=== PATIENT | female | born 1960 | race Caucasian/White ===

== ENCOUNTER 2017-02-17 14:08 | Emergency (ER) | payer BC, MEDICARE ==
[~2017-02-17] VITALS: Ht 165.1 cm; Wt 68.5 kg
[~2017-02-17 14:08] MED LIST: ALEN70TA3 PO; ALPR1TAB2 PO; ATOR40TA59 PO; BETA15CR5 TP; CARI350T PO; DULO60CA6 PO; HYDR-2679 PO; LEVO112T2 PO; LOSA50TA2 PO; MILN50TA PO; NYST15CR TP; PREG100C PO; SOLI10TA2 PO
[2017-02-17 15:43] LABS: BASO # 0.1 x10^3/uL (0.0-0.2); BASO % 1 % (0-3); EOS % 1 % (0-3); LYMPH # 4.1 x10^3/uL (1.0-4.8); LYMPH % 41 % (24-48); MEAN CORPUSCULAR HEMOGLOBIN 31 pg (25-35); MEAN CORPUSCULAR HGB CONC 34 g/dL (31-37); MEAN CORPUSCULAR VOLUME 92 fL (79-100); MONO % 9 % (0-9); NEUT % 48 % (31-73); PLATELET COUNT 419 x10^3/uL (140-400); RED CELL DISTRIBUTION WIDTH 13.4 % (11.5-14.5); WHITE BLOOD COUNT 9.9 x10^3/uL (4.0-11.0)
[2017-02-17] MEDS ORDERED: IV NORMAL SALINE 1000ML BAG 1,000 ML IV ONE (15:45)
[2017-02-17 15:57] LABS: CALCIUM 9.8 mg/dL (8.5-10.1); CREATININE 0.8 mg/dL (0.6-1.0); GFR 74.2
--- NOTE | 2017-02-17 15:57 | RAD ---
Portable chest, 02/17/2017: History: Chest pain Comparison is made to a study from 01/18/2008. The heart size and pulmonary vascularity are normal. No pulmonary infiltrates are seen. There is no evidence of pleural fluid. IMPRESSION: No acute cardiopulmonary abnormality is detected.
--- NOTE | 2017-02-17 16:02 | EKG ---
[facility] [address] [place] [address] Test Date: 2017-02-17 Test Time: 15:09:14 Pat Name: AIME SANCHEZ Department: Room: Gender: F Property Field Inspector: : [id number] Requested By: PJ HERNANDEZ Order Number: [id number] Reading MD: Mratin Barrios MD Measurements Intervals [place]ichael Rate: 98 P: 54 ND: 126 QRS: 45 QRSD: 88 T: -8 QT: 376 QTc: 482 Interpretive Statements SINUS RHYTHM NON-SPECIFIC ST/T CHANGES PROLONGED QT Electronically Signed On 02-17-2017 16:30:05 TRANSPORTATION MAINTENANCE SPECIALIST by Martin Barrios MD
[2017-02-17 16:07] LABS: ALBUMIN 3.9 g/dL (3.4-5.0); ALBUMIN/GLOBULIN RATIO 1.1 (1.0-1.7); TOTAL BILIRUBIN 0.4 mg/dL (0.2-1.0); TOTAL PROTEIN 7.6 g/dL (6.4-8.2)
[2017-02-17 16:11] LABS: BILIRUBIN,URINE MODERATE (NEG); GLUCOSE,URINE NEGATIVE (NEG); NITRITE,URINE NEGATIVE (NEG); PH,URINE 6.5; PROTEIN,URINE 30 mg/dL (NEG-TRACE)
[2017-02-17 16:21] LABS: BACTERIA,URINE MOD /HPF (0-FEW); RBC,URINE 0 /HPF (0-2); SQUAMOUS EPITHELIAL CELL,UR MOD /LPF
[2017-02-17] MEDS ORDERED: IOHEXOL 300 MG/ML 100ML VIAL. IV ONE (18:00)
[2017-02-17] MEDS ORDERED: CONTRAST GIVEN MC PRN (18:15)
--- NOTE | 2017-02-17 19:27 | RAD ---
Indication: Abdominal pain. History of pancreatitis TECHNIQUE: CT abdomen and pelvis with 75 mL of Omnipaque 300 with multiplanar reformats. COMPARISON: None FINDINGS: Heart is normal in size. No pericardial or pleural effusion. Clear lung bases. Liver is normal in morphology. There is a 8mm low attenuating lesion in the subcapsular segment 8 of the liver. Another 6 cm low attenuating lesion is seen in the dome of the right hepatic lobe (series 2 image 10) Spleen within normal limits. Status post cholecystectomy. No peripancreatic inflammatory changes. No focal pancreatic lesion. No peripancreatic fluid collections. There is dilation of the common bile duct with smooth distal tapering without evidence of radiopaque stone. Kidneys are within normal limits. Too small to characterize low attenuating lesion in the left kidney, statistically simple cyst. Adrenal glands are within normal limits. No hydronephrosis. No retroperitoneal or pelvic adenopathy. No bowel obstruction. Scattered sigmoid diverticuli. Likely appendectomy. Uterus is not visualized likely surgically absent. No solid adnexal lesions. No free pelvic fluid. No suspicious bony lesion. IMPRESSION: 1. No imaging evidence of acute or chronic pancreatitis. 2. Small liver lesions, the appearance is not typical of simple hepatic cyst. Findings may represent atypical hemangioma, hepatic adenoma, hamartomas or metastasis. Nonemergent MRI abdomen recommended. Electronically signed by: Darrian White DO (02/17/2017 7:24 PM) [facility]
[2017-02-17] MEDS ORDERED: POTA20TA4 PO (20:16)
--- NOTE | 2017-02-17 20:16 | PHYS DOC ---
Past Medical History Past Medical History: Anxiety, Arthritis, Depression, Fibromyalgia, High Cholesterol, Hypertension Additional Past Medical Histor: OSTEOPORESIS, CHRONIC BACK PAIN Past Surgical History: Appendectomy, Cholecystectomy, Hysterectomy, Other Additional Past Surgical Histo: RIGHT EYE,KNEE,NECK, TAILBONE SURGERY, BILAT EAR SURGERY Additional Information: quit smoking 29 years ago Alcohol Use: None Drug Use: None Adult General Chief Complaint Chief Complaint: NAUSEA/VOMITING/DIARRHA HPI HPI 57-year-old female with a history of anxiety and depression as well as sciatica now presents to the emergency department complaining of left upper quadrant abdominal pain. She states she's previously had pancreatitis and she scheduled some mild left upper quadrant abdominal pain over the last 2 days. She has no chest pain or shortness of breath. She does have some nausea no vomiting or baseline loose stool per patient. He is not worse with movement. It is clearly not exertional pain she has no diaphoresis or shortness of breath. Patient think she having another episode of pancreatitis. She denies having been a heavy drinker and is not clear why she has had pancreatitis multiple times in the past. Review of Systems Review of Systems Constitutional: Denies fever or chills [] Eyes: Denies change in visual acuity, redness, or eye pain [] HENT: Denies nasal congestion or sore throat [] Respiratory: Denies cough or shortness of breath [] Cardiovascular: No additional information not addressed in HPI [] GI: Denies abdominal pain, nausea, vomiting, bloody stools or diarrhea [] : Denies dysuria or hematuria [] Musculoskeletal: Denies back pain or joint pain [] Integument: Denies rash or skin lesions [] Neurologic: Denies headache, focal weakness or sensory changes [] Endocrine: Denies polyuria or polydipsia [] All other systems were reviewed and found to be within normal limits, except as documented in this note. Current Medications Current Medications Current Medications Medications (Trade) Dose Ordered Sig/Joni Start Time Stop Time Status Last Admin Dose Admin Info (Do NOT chart on this entry -- for MONITORING) 1 each PRN DAILY PRN 02/17/17 18:15 02/19/17 18:14 Iohexol (Omnipaque 300 Mg/ml) 75 ml 1X ONCE 02/17/17 18:00 02/17/17 18:03 DC 11/13/17 18:11 75 ML Lorazepam (Ativan) 1 mg 1X ONCE 02/17/17 16:00 02/17/17 16:01 DC 02/17/17 16:06 1 MG Sodium Chloride 1,000 ml @ 125 mls/hr 1X ONCE 02/17/17 15:45 02/17/17 23:44 02/17/17 15:59 125 MLS/HR Allergies Allergies Allergies Coded Allergies Type Severity Reaction Last Updated Verified aspirin Allergy Intermediate 02/06/16 No codeine Allergy Intermediate VOMITING 04/19/14 Yes sulfamethoxazole Allergy Intermediate VOMITING 04/19/14 Yes trimethoprim Allergy Intermediate VOMITING 04/19/14 Yes Physical Exam Physical Exam Well-appearing 57 female no acute distress alert and communicative. Patient has a clearly contributory anxiety component. Trace left upper quadrant tenderness reproducible with palpation with no guarding or rebound no mass or megaly nondistended abdomen with no skin changes. Constitutional: Well developed, well nourished, no acute distress, non-toxic appearance. [] HENT: Normocephalic, atraumatic, bilateral external ears normal, oropharynx moist, no oral exudates, nose normal. [] Eyes: PERRLA, EOMI, conjunctiva normal, no discharge. [] Neck: Normal range of motion, no tenderness, supple, no stridor. [] Cardiovascular:Heart rate regular rhythm, no murmur [] Lungs & Thorax: Bilateral breath sounds clear to auscultation [] Abdomen: Bowel sounds normal, soft, as above. No masses, no pulsatile masses. [ ] Skin: Warm, dry, no erythema, no rash. [] Back: No tenderness, no CVA tenderness. [] Extremities: No tenderness, no cyanosis, no clubbing, ROM intact, no edema. [] Neurologic: Alert and oriented X 3, normal motor function, normal sensory function, no focal deficits noted. [] Psychologic: Affect normal, judgement normal, mood normal. [] Current Patient Data Vital Signs Vital Signs Date Time Temp Pulse Resp B/P (MAP) Pulse Ox O2 Delivery O2 Flow Rate FiO2 02/17/17 19:14 104 18 104/72 (83) 95 Room Air 02/17/17 14:17 98.6 98.6 Lab Values Laboratory Tests Test 02/17/17 14:28 02/17/17 15:45 White Blood Count 9.9 x10^3/uL (4.0-11.0) Red Blood Count 4.80 x10^6/uL (3.50-5.40) Hemoglobin 15.0 g/dL (12.0-15.5) Hematocrit 44.0 % (36.0-47.0) Mean Corpuscular Volume 92 fL (79-100) Mean Corpuscular Hemoglobin 31 pg (25-35) Mean Corpuscular Hemoglobin Concent 34 g/dL (31-37) Red Cell Distribution Width 13.4 % (11.5-14.5) Platelet Count 419 x10^3/uL (140-400) H Neutrophils (%) (Auto) 48 % (31-73) Lymphocytes (%) (Auto) 41 % (24-48) Monocytes (%) (Auto) 9 % (0-9) Eosinophils (%) (Auto) 1 % (0-3) Basophils (%) (Auto) 1 % (0-3) Neutrophils # (Auto) 4.8 x10^3uL (1.8-7.7) Lymphocytes # (Auto) 4.1 x10^3/uL (1.0-4.8) Monocytes # (Auto) 0.9 x10^3/uL (0.0-1.1) Eosinophils # (Auto) 0.1 x10^3/uL (0.0-0.7) Basophils # (Auto) 0.1 x10^3/uL (0.0-0.2) Sodium Level 136 mmol/L (136-145) Potassium Level 3.0 mmol/L (3.5-5.1) L Chloride Level 101 mmol/L (98-107) Carbon Dioxide Level 22 mmol/L (21-32) Anion Gap 13 (6-14) Blood Urea Nitrogen 13 mg/dL (7-20) Creatinine 0.8 mg/dL (0.6-1.0) Estimated GFR (Cockcroft-Gault) 74.2 BUN/Creatinine Ratio 16 (6-20) Glucose Level 89 mg/dL (70-99) Calcium Level 9.8 mg/dL (8.5-10.1) Total Bilirubin 0.4 mg/dL (0.2-1.0) Aspartate Amino Transferase (AST) 18 U/L (15-37) Alanine Aminotransferase (ALT) 18 U/L (14-59) Alkaline Phosphatase 87 U/L (46-116) Troponin I Quantitative < 0.017 ng/mL (0.000-0.055) Total Protein 7.6 g/dL (6.4-8.2) Albumin 3.9 g/dL (3.4-5.0) Albumin/Globulin Ratio 1.1 (1.0-1.7) Lipase 71 U/L (73-393) L Thyroid Stimulating Hormone (TSH) 0.108 uIU/mL (0.358-3.74) L Urine Collection Type Unknown Urine Color Yamileth Urine Clarity Clear Urine pH 6.5 Urine Specific Lincoln >=1.030 Urine Protein 30 mg/dL (NEG-TRACE) Urine Glucose (UA) Negative mg/dL (NEG) Urine Ketones (Stick) 40 mg/dL (NEG) Urine Blood Negative (NEG) Urine Nitrite Negative (NEG) Urine Bilirubin Moderate (NEG) Urine Urobilinogen Dipstick 1.0 mg/dL (0.2 mg/dL) Urine Leukocyte Esterase Small (NEG) Urine RBC 0 /HPF (0-2) Urine WBC 1-4 /HPF (0-4) Urine Squamous Epithelial Cells Mod /LPF Urine Bacteria Mod /HPF (0-FEW) Urine Mucus Mod /LPF Laboratory Tests 02/17/17 14:28 Laboratory Tests 02/17/17 14:28 EKG EKG EKG with normal sinus rhythm at 98 normal axis no STEMI nonspecific ST and T- wave findings interpreted by me.[] Radiology/Procedures Radiology/Procedures Chest x-ray unremarkable interpreted by me report reviewed.[] Course & Med Decision Making Course & Med Decision Making Pertinent Labs and Imaging studies reviewed. (See chart for details) Patient with nonspecific 3 mild left upper quadrant abdominal pain which is easily reproducible however a benign exam. Normal bowel sounds no CVA tenderness. Urinalysis consistent with contamination. She does not have clinical signs and symptoms to suggest UTI so straight catheter repeat UA not clinically indicated. Labs benign except's potassium mildly low at 3.0. This will be supplemented by mouth. CT with some liver lesions of unclear etiology nonemergent MRI recommended by radiology. Patient given copy of CT report is aware critical importance of close follow-up with her primary care doctor to arrange this MRI of the abdomen for definitive diagnosis and specifically to rule out the possibility of liver cancer. Patient with a clearly contributory anxiety component improved after Ativan treatment. Stable with unremarkable exam on reevaluation prior to discharge. No further workup or treatment indicated. Patient agrees that outpatient follow-up and strict return precautions given [] Dragon Disclaimer Dragon Disclaimer This electronic medical record was generated, in whole or in part, using a voice recognition dictation system. Departure Departure Impression: Primary Impression: Abdominal pain Additional Impressions: Anxiety Hypokalemia Liver mass Disposition: HOME, SELF-CARE Condition: GOOD Referrals: RODNEY ZALDIVAR MD (PCP) Patient Instructions: Abdominal Pain (Nonspecific), Anxiety and Panic Attacks, [id number], Hypokalemia-Brief Additional Instructions: It is not clear what has been causing her abdominal pain today but you have no signs of an abdominal emergency. Your lab tests were unremarkable except her potassium was mildly low at 3.0. Take supplemental potassium as prescribed and follow-up with your doctor for recheck of this value. Your anxiety appears to be contributing to see her symptoms today. Take your medications as previously prescribed as needed for this condition. Your CAT scan of the abdomen showed no emergency, however there was an incidental finding of liver mass today. Often liver masses are benign however in this situation radiology has recommended that he follow-up with your doctor to arrange an outpatient MRI of your abdomen specifically to rule out the possibility of liver cancer. You've been given a copy of the CT report to discuss with your doctor and make these arrangements. Follow-up your doctor tomorrow and return immediately for new severe worsening symptoms Scripts Potassium Chloride (KLOR-CON M20) 20 Meq Tab.er.prt 40 MEQ PO DAILY, #10 TAB.SR Prov: PJ HERNANDEZ MD 02/17/17 Problem Qualifiers PJ HERNANDEZ MD Feb 17, 2017 20:16
[2017-02-17 20:21] VITALS: BP 96/67
[2017-02-17] MEDS ORDERED: POTASSIUM CHLORIDE 20 MEQ TABLET.ER. PO ONE (20:30)
== END 2017-02-17 20:25 | disposition home or self-care (01) ==
LOC: ER 14:08
DX: R16.0 Hepatomegaly, not elsewhere classified (principal); E87.6 Hypokalemia; F41.9 Anxiety disorder, unspecified; F32.9 Major depressive disorder, single episode, unspecified; M79.7 Fibromyalgia; E78.00 Pure hypercholesterolemia, unspecified; I10 Essential (primary) hypertension; G89.29 Other chronic pain; Z87.891 Personal history of nicotine dependence; Z88.5 Allergy status to narcotic agent; Z88.6 Allergy status to analgesic agent; Z88.1 Allergy status to other antibiotic agents
CPT/HCPCS: 36415; 71010; 74177; 80053; 81001; 83690; 84443; 84484; 85025; 93005; 96361; 96374; 99285; J2060; J7030; Q9967

== ENCOUNTER 2017-05-15 10:58 | Inpatient (IN) | payer BC, MEDICARE ==
[2017-05-15 12:56] LABS: ADD MAN DIFF? NO
[2017-05-15] MEDS: PANTOPRAZOLE 40 MG TABLET.DR. PO ×2 (12:56)
[2017-05-15] MEDS: POTASSIUM CL 20MEQ D5-0.45NACL 1,000 ML IV ×4 (12:56→21:57)
[2017-05-15] MEDS: HYDROcodone/APAP 7.5/325MG 1 TAB TABLET PO ×4 (13:03→21:01)
[2017-05-15 13:06] LABS: BASO % 0 % (0-3); EOS # 0.1 x10^3/uL (0.0-0.7); EOS % 1 % (0-3); HEMATOCRIT 42.1 % (36.0-47.0); HEMOGLOBIN 14.4 g/dL (12.0-15.5); LYMPH # 4.1 x10^3/uL (1.0-4.8); LYMPH % 44 % (24-48); MEAN CORPUSCULAR HEMOGLOBIN 31 pg (25-35); MEAN CORPUSCULAR HGB CONC 34 g/dL (31-37); MEAN CORPUSCULAR VOLUME 92 fL (79-100); MONO % 10 % (0-9); NEUT # 4.2 x10^3uL (1.8-7.7); NEUT % 45 % (31-73); PLATELET COUNT 352 x10^3/uL (140-400); RED CELL DISTRIBUTION WIDTH 14.2 % (11.5-14.5); WHITE BLOOD COUNT 9.4 x10^3/uL (4.0-11.0)
[2017-05-15 13:11] LABS: ALBUMIN 4.3 g/dL (3.4-5.0); ALBUMIN/GLOBULIN RATIO 1.3 (1.0-1.7); ALK PHOS 61 U/L (46-116); ALT (SGPT) 23 U/L (14-59); ANION GAP 14 (6-14); AST (SGOT) 20 U/L (15-37); BLOOD UREA NITROGEN 21 mg/dL (7-20); BUN/CREATININE RATIO 35 (6-20); CARBON DIOXIDE 23 mmol/L (21-32); CHLORIDE 100 mmol/L (98-107); CREATININE 0.6 mg/dL (0.6-1.0); GFR 103.4; GLUCOSE 84 mg/dL (70-99); POTASSIUM 3.4 mmol/L (3.5-5.1); SODIUM 137 mmol/L (136-145); TOTAL BILIRUBIN 0.5 mg/dL (0.2-1.0); TOTAL PROTEIN 7.6 g/dL (6.4-8.2)
[2017-05-15 13:20] LABS: THYROID STIM HORMONE (TSH) 0.348 uIU/mL (0.358-3.74)
[2017-05-15 13:29] LABS: BILIRUBIN,URINE MODERATE (NEG); CLARITY,URINE CLEAR; COLOR,URINE YELLOW; GLUCOSE,URINE NEGATIVE (NEG); NITRITE,URINE NEGATIVE (NEG); PROTEIN,URINE 30 mg/dL (NEG-TRACE)
[2017-05-15 13:54] LABS: BACTERIA,URINE 0 /HPF (0-FEW); SQUAMOUS EPITHELIAL CELL,UR MOD /LPF
[2017-05-15] MEDS: CARISOPRODOL 350 MG TABLET PO ×4 (14:44→20:59)
[2017-05-15] MEDS: fentaNYL PF VIAL 100 MCG/2 ML VIAL IV ×4 (14:44→21:42)
[2017-05-15] MEDS: ATORVASTATIN CALCIUM 40 MG TABLET. PO ×2 (20:59)
[2017-05-15] MEDS: NYSTATIN 100,000 UNIT/GM TOPICAL CREAM 15GM TUBE. TP ×2 (21:44)
[2017-05-16] MEDS: HYDROcodone/APAP 7.5/325MG 1 TAB TABLET PO ×6 (03:46→20:56)
[2017-05-16 04:53] LABS: ADD MAN DIFF? NO
[2017-05-16 05:15] LABS: BASO % 1 % (0-3); EOS # 0.1 x10^3/uL (0.0-0.7); EOS % 2 % (0-3); HEMATOCRIT 39.7 % (36.0-47.0); HEMOGLOBIN 13.7 g/dL (12.0-15.5); LYMPH # 3.3 x10^3/uL (1.0-4.8); LYMPH % 46 % (24-48); MEAN CORPUSCULAR HEMOGLOBIN 32 pg (25-35); MEAN CORPUSCULAR HGB CONC 34 g/dL (31-37); MEAN CORPUSCULAR VOLUME 93 fL (79-100); MONO # 0.8 x10^3/uL (0.0-1.1); MONO % 11 % (0-9); NEUT % 41 % (31-73); PLATELET COUNT 327 x10^3/uL (140-400); RED BLOOD COUNT 4.29 x10^6/uL (3.50-5.40); RED CELL DISTRIBUTION WIDTH 13.9 % (11.5-14.5); WHITE BLOOD COUNT 7.2 x10^3/uL (4.0-11.0)
[2017-05-16] MEDS: LEVOTHYROXINE 112 MCG TABLET PO ×2 (06:48)
[2017-05-16] MEDS: PANTOPRAZOLE 40 MG TABLET.DR. PO ×2 (07:31)
[2017-05-16] MEDS: POTASSIUM CL 20MEQ D5-0.45NACL 1,000 ML IV ×4 (07:31→19:06)
[2017-05-16] MEDS: CARISOPRODOL 350 MG TABLET PO ×6 (09:16→19:06)
[2017-05-16] MEDS: DULoxetine HCL 30 MG CAPSULE.DR PO ×2 (09:16)
[2017-05-16] MEDS: PREGABALIN 75 MG CAPSULE PO ×2 (09:17)
[2017-05-16] MEDS: LOSARTAN POTASSIUM 50 MG TABLET. PO ×2 (09:17)
[2017-05-16] MEDS: NYSTATIN 100,000 UNIT/GM TOPICAL CREAM 15GM TUBE. TP ×4 (09:21→20:56)
[2017-05-16 10:30] LABS: ANION GAP 8 (6-14); CARBON DIOXIDE 26 mmol/L (21-32); CHLORIDE 102 mmol/L (98-107); POTASSIUM 3.6 mmol/L (3.5-5.1); SODIUM 136 mmol/L (136-145)
[2017-05-16] MEDS: IOHEXOL 240 MG/ML 50ML VIAL. PO ×2 (10:30)
[2017-05-16] MEDS ORDERED: CONTRAST GIVEN MC ×2 (10:30)
[2017-05-16 10:48] LABS: FREE T4 1.42 ng/dL (0.76-1.46)
[2017-05-16] MEDS: ACETAMINOPHEN 500 MG TABLET PO ×2 (12:36)
[2017-05-16 19:17] LABS: T3 UPTAKE 32 % (24-39); THYROXINE 12.1 ug/dL (4.5-12.0)
[2017-05-16 19:17] LABS: T3 TOTAL 80 ng/dL (71-180)
[2017-05-16 20:18] LABS: C DIFF BY PCR Negative (Negative)
[2017-05-16] MEDS: traZODone 100 MG TABLET. PO ×2 (20:52)
[2017-05-16] MEDS: ATORVASTATIN CALCIUM 40 MG TABLET. PO ×2 (20:52)
[2017-05-17 05:27] LABS: HEMATOCRIT 38.3 % (36.0-47.0); HEMOGLOBIN 12.7 g/dL (12.0-15.5); MEAN CORPUSCULAR HEMOGLOBIN 31 pg (25-35); MEAN CORPUSCULAR HGB CONC 33 g/dL (31-37); MEAN CORPUSCULAR VOLUME 94 fL (79-100); PLATELET COUNT 319 x10^3/uL (140-400); RED BLOOD COUNT 4.09 x10^6/uL (3.50-5.40); RED CELL DISTRIBUTION WIDTH 14.1 % (11.5-14.5)
[2017-05-17] MEDS: LEVOTHYROXINE 112 MCG TABLET PO ×2 (05:28)
[2017-05-17] MEDS: POTASSIUM CL 20MEQ D5-0.45NACL 1,000 ML IV ×4 (05:29→14:58)
[2017-05-17 05:47] LABS: ANION GAP 8 (6-14); BLOOD UREA NITROGEN 6 mg/dL (7-20); CALCIUM 8.8 mg/dL (8.5-10.1); CARBON DIOXIDE 26 mmol/L (21-32); CHLORIDE 107 mmol/L (98-107); CREATININE 0.6 mg/dL (0.6-1.0); GFR 103.4; GLUCOSE 105 mg/dL (70-99); POTASSIUM 3.6 mmol/L (3.5-5.1); SODIUM 141 mmol/L (136-145)
[2017-05-17 07:34] LABS: BILIRUBIN,URINE NEGATIVE (NEG); CLARITY,URINE CLEAR; COLOR,URINE YELLOW; GLUCOSE,URINE NEGATIVE (NEG); NITRITE,URINE NEGATIVE (NEG); PROTEIN,URINE NEGATIVE (NEG-TRACE); UROBILINOGEN,URINE 0.2 mg/dL (0.2 mg/dL)
[2017-05-17] MEDS: PANTOPRAZOLE 40 MG TABLET.DR. PO ×2 (07:51)
[2017-05-17 08:09] LABS: BACTERIA,URINE 0 /HPF (0-FEW); RBC,URINE 0 /HPF (0-2); SQUAMOUS EPITHELIAL CELL,UR FEW /LPF; WBC,URINE 0 /HPF (0-4)
[2017-05-17] MEDS: PREGABALIN 75 MG CAPSULE PO ×2 (08:41)
[2017-05-17] MEDS: DULoxetine HCL 30 MG CAPSULE.DR PO ×2 (08:41)
[2017-05-17] MEDS: LOSARTAN POTASSIUM 50 MG TABLET. PO ×2 (08:41)
[2017-05-17] MEDS: CARISOPRODOL 350 MG TABLET PO ×6 (08:42→21:17)
[2017-05-17] MEDS: HYDROcodone/APAP 7.5/325MG 1 TAB TABLET PO ×4 (08:42→18:14)
[2017-05-17] MEDS: NYSTATIN 100,000 UNIT/GM TOPICAL CREAM 15GM TUBE. TP ×4 (08:42→21:18)
[2017-05-17] MEDS: ALPRAZolam 1 MG TABLET PO ×4 (08:44→18:14)
[2017-05-17] MEDS: LACTOBACILLUS RHAMNOSUS GG 1 CAPSULE. PO ×4 (13:28→21:17)
[2017-05-17] MEDS: ATORVASTATIN CALCIUM 40 MG TABLET. PO ×2 (21:17)
[2017-05-17] MEDS: traZODone 100 MG TABLET. PO ×2 (21:18)
[2017-05-18] MEDS: POTASSIUM CL 20MEQ D5-0.45NACL 1,000 ML IV ×6 (00:38→21:21)
[2017-05-18] MEDS: LEVOTHYROXINE 100 MCG TABLET PO ×2 (05:39)
[2017-05-18] MEDS: PANTOPRAZOLE 40 MG TABLET.DR. PO ×2 (08:10)
[2017-05-18] MEDS: HYDROcodone/APAP 7.5/325MG 1 TAB TABLET PO ×6 (08:20→21:23)
[2017-05-18] MEDS: ALPRAZolam 1 MG TABLET PO ×6 (08:20→21:21)
[2017-05-18] MEDS: CARISOPRODOL 350 MG TABLET PO ×6 (08:58→21:21)
[2017-05-18] MEDS: LACTOBACILLUS RHAMNOSUS GG 1 CAPSULE. PO ×4 (08:58→21:21)
[2017-05-18] MEDS: PREGABALIN 75 MG CAPSULE PO ×2 (08:58)
[2017-05-18] MEDS: DULoxetine HCL 30 MG CAPSULE.DR PO ×2 (08:59)
[2017-05-18] MEDS: NYSTATIN 100,000 UNIT/GM TOPICAL CREAM 15GM TUBE. TP ×4 (09:00→21:24)
[2017-05-18] MEDS: traZODone 100 MG TABLET. PO ×2 (21:21)
[2017-05-18] MEDS: ATORVASTATIN CALCIUM 40 MG TABLET. PO ×2 (21:21)
[2017-05-19] MEDS: ALPRAZolam 1 MG TABLET PO ×6 (02:54→16:17)
[2017-05-19] MEDS: HYDROcodone/APAP 7.5/325MG 1 TAB TABLET PO ×6 (02:54→16:17)
[2017-05-19] MEDS: LEVOTHYROXINE 100 MCG TABLET PO ×2 (06:40)
[2017-05-19] MEDS: PANTOPRAZOLE 40 MG TABLET.DR. PO ×2 (07:31)
[2017-05-19] MEDS: POTASSIUM CL 20MEQ D5-0.45NACL 1,000 ML IV ×4 (07:32→16:18)
[2017-05-19] MEDS: NYSTATIN 100,000 UNIT/GM TOPICAL CREAM 15GM TUBE. TP ×4 (09:00→20:44)
[2017-05-19] MEDS: LACTOBACILLUS RHAMNOSUS GG 1 CAPSULE. PO ×4 (09:03→20:42)
[2017-05-19] MEDS: CARISOPRODOL 350 MG TABLET PO ×6 (09:03→20:42)
[2017-05-19] MEDS: PREGABALIN 75 MG CAPSULE PO ×2 (09:03)
[2017-05-19] MEDS: DULoxetine HCL 30 MG CAPSULE.DR PO ×2 (09:04)
[2017-05-19] MEDS: ACETAMINOPHEN 500 MG TABLET PO ×2 (13:21)
[2017-05-19] MEDS: HYOSCYAMINE 0.125 MG TAB.RAPDIS PO ×2 (16:20)
[2017-05-19] MEDS: ATORVASTATIN CALCIUM 40 MG TABLET. PO ×2 (20:42)
[2017-05-19] MEDS: traZODone 100 MG TABLET. PO ×4 (20:42→21:31)
[2017-05-20] MEDS: POTASSIUM CL 20MEQ D5-0.45NACL 1,000 ML IV ×2 (02:15)
[2017-05-20 04:26] LABS: HEMATOCRIT 31.9 % (36.0-47.0); HEMOGLOBIN 10.9 g/dL (12.0-15.5); MEAN CORPUSCULAR HEMOGLOBIN 32 pg (25-35); MEAN CORPUSCULAR HGB CONC 34 g/dL (31-37); MEAN CORPUSCULAR VOLUME 95 fL (79-100); PLATELET COUNT 263 x10^3/uL (140-400); RED BLOOD COUNT 3.37 x10^6/uL (3.50-5.40); RED CELL DISTRIBUTION WIDTH 13.8 % (11.5-14.5); WHITE BLOOD COUNT 5.4 x10^3/uL (4.0-11.0)
[2017-05-20 04:52] LABS: ANION GAP 3 (6-14); BLOOD UREA NITROGEN 5 mg/dL (7-20); CALCIUM 9.9 mg/dL (8.5-10.1); CARBON DIOXIDE 33 mmol/L (21-32); CHLORIDE 106 mmol/L (98-107); CREATININE 0.8 mg/dL (0.6-1.0); GFR 74.2; GLUCOSE 110 mg/dL (70-99); LIPASE 74 U/L (73-393); POTASSIUM 4.2 mmol/L (3.5-5.1); SODIUM 142 mmol/L (136-145)
[2017-05-20] MEDS: LEVOTHYROXINE 100 MCG TABLET PO ×2 (05:41)
[2017-05-20] MEDS: HYDROcodone/APAP 7.5/325MG 1 TAB TABLET PO ×2 (05:41)
[2017-05-20 07:38] LABS: SEDIMENTATION RATE 2 (0-25)
[2017-05-20] MEDS: HYOSCYAMINE 0.125 MG TAB.RAPDIS PO ×2 (08:49)
[2017-05-20] MEDS: DULoxetine HCL 30 MG CAPSULE.DR PO ×2 (08:49)
[2017-05-20] MEDS: CARISOPRODOL 350 MG TABLET PO ×2 (08:49)
[2017-05-20] MEDS: LACTOBACILLUS RHAMNOSUS GG 1 CAPSULE. PO ×2 (08:49)
[2017-05-20] MEDS: PANTOPRAZOLE 40 MG TABLET.DR. PO ×2 (08:49)
[2017-05-20] MEDS: PREGABALIN 75 MG CAPSULE PO ×2 (08:50)
[2017-05-20] MEDS: ALPRAZolam 1 MG TABLET PO ×2 (08:50)
[2017-05-20] MEDS: NYSTATIN 100,000 UNIT/GM TOPICAL CREAM 15GM TUBE. TP ×2 (09:00)
== END 2017-05-20 11:30 | disposition home or self-care (01) | DRG 392 ==
LOC: 5 NORTH 10:58
DX: K52.9 Noninfective gastroenteritis and colitis, unspecified (principal); G62.9 Polyneuropathy, unspecified; I88.9 Nonspecific lymphadenitis, unspecified; H66.91 Otitis media, unspecified, right ear; G89.29 Other chronic pain; M54.2 Cervicalgia; M54.9 Dorsalgia, unspecified; E78.5 Hyperlipidemia, unspecified; M79.7 Fibromyalgia; I10 Essential (primary) hypertension; J44.9 Chronic obstructive pulmonary disease, unspecified; M81.0 Age-related osteoporosis without current pathological fracture; R31.9 Hematuria, unspecified; F32.9 Major depressive disorder, single episode, unspecified; F41.9 Anxiety disorder, unspecified; E03.9 Hypothyroidism, unspecified; M19.90 Unspecified osteoarthritis, unspecified site; K21.9 Gastro-esophageal reflux disease without esophagitis; Z88.6 Allergy status to analgesic agent; Z82.49 Family history of ischemic heart disease and other diseases of the circulatory system; Z87.440 Personal history of urinary (tract) infections; Z88.1 Allergy status to other antibiotic agents; Z88.2 Allergy status to sulfonamides; Z90.710 Acquired absence of both cervix and uterus
CPT/HCPCS: 36415; 71045; 74176; 80048; 80051; 80053; 81001; 83690; 84436; 84439; 84443; 84479; 84480; 84481; 85025; 85027; 85651; 86850; 86900; 86901; 87045; 87205; 87324; 93005; J3010; Q9966

== ENCOUNTER → 2017-07-01 | Day surgery (SDC) | payer BC, MEDICARE ==
[~2017-07-01] MED LIST changes: -ALEN70TA3 PO; -ALPR1TAB2 PO; -ATOR40TA59 PO; -BETA15CR5 TP; -CARI350T PO; -DULO60CA6 PO; -HYDR-2679 PO; -LEVO112T2 PO; +LIDOCAINE 1% PF 2 ML VIAL. ID; +LIDOCAINE 2% 100 MG/5 ML SYRINGE.; -LOSA50TA2 PO; -MILN50TA PO; -NYST15CR TP; +ONDANSETRON PF 4 MG/2 ML VIAL. IV; -PREG100C PO; +PROCHLORPERAZINE 10 MG/2 ML VIAL. IV; +PROPOFOL 40 ML IV; -SOLI10TA2 PO; +fentaNYL PF VIAL 100 MCG/2 ML VIAL IV
[2017-07-01] MEDS: IV RINGERS,LACTATED 1000ML 1,000 ML IV (11:55)
== END | disposition home or self-care (01) ==
LOC: ENDOS 10:58
DX: D12.3 Benign neoplasm of transverse colon (principal); K57.30 Diverticulosis of large intestine without perforation or abscess without bleeding; K64.0 First degree hemorrhoids; K21.0 Gastro-esophageal reflux disease with esophagitis; K29.50 Unspecified chronic gastritis without bleeding; I10 Essential (primary) hypertension; E78.5 Hyperlipidemia, unspecified; J44.9 Chronic obstructive pulmonary disease, unspecified; F32.9 Major depressive disorder, single episode, unspecified; F41.9 Anxiety disorder, unspecified; E03.9 Hypothyroidism, unspecified; M85.80 Other specified disorders of bone density and structure, unspecified site; Z87.440 Personal history of urinary (tract) infections; M79.7 Fibromyalgia; G62.9 Polyneuropathy, unspecified; M19.90 Unspecified osteoarthritis, unspecified site; Z90.49 Acquired absence of other specified parts of digestive tract; Z90.710 Acquired absence of both cervix and uterus; Z98.890 Other specified postprocedural states; Z82.49 Family history of ischemic heart disease and other diseases of the circulatory system; Z87.891 Personal history of nicotine dependence; F12.90 Cannabis use, unspecified, uncomplicated; Z88.2 Allergy status to sulfonamides; Z88.5 Allergy status to narcotic agent; Z88.8 Allergy status to other drugs, medicaments and biological substances; Z79.899 Other long term (current) drug therapy
CPT/HCPCS: 43239; 88305; 88342; J2704

== ENCOUNTER 2019-01-27 09:13 | Emergency (ER) | payer BC, MEDICARE ==
[~2019-01-27] VITALS: Ht 165.1 cm; Wt 68.9 kg
[~2019-01-27 09:13] MED LIST changes: +ALEN70TA3 PO; +ALEN70TA6 PO; +ALPR1TAB2 PO; +ATOR40TA59 PO; +BETA15CR5 TP; +CARI350T PO; +DULO60CA6 PO; +FOLI1TAB16 PO; +HYDR-2679 PO; +LEVO100T PO; +LEVO112T2 PO; +LEVO112T4 PO; -LIDOCAINE 1% PF 2 ML VIAL. ID; -LIDOCAINE 2% 100 MG/5 ML SYRINGE.; +LOSA-73 PO; +MILN50TA PO; +NYST15CR TP; +OMEP40CA45 PO; +ONDA4TAB12 PO; -ONDANSETRON PF 4 MG/2 ML VIAL. IV; +POTA20TA4 PO; +PREG100C PO; +PREG300C PO; -PROCHLORPERAZINE 10 MG/2 ML VIAL. IV; -PROPOFOL 40 ML IV; +Pantoprazole PO; +SIMV20TA18 PO; +SOLI10TA2 PO; +TRAZ-86 PO; +TRAZ150T49 PO; -fentaNYL PF VIAL 100 MCG/2 ML VIAL IV
--- NOTE | 2019-01-27 09:42 | PHYS DOC ---
Past Medical History Past Medical History: Anxiety, Arthritis, Depression, Fibromyalgia, High Cholesterol, Hypertension Additional Past Medical Histor: OSTEOPORESIS, CHRONIC BACK PAIN Past Surgical History: Appendectomy, Cholecystectomy, Hysterectomy, Other Additional Past Surgical Histo: RIGHT EYE,KNEE,NECK, TAILBONE SURGERY, BILAT EAR SURGERY Alcohol Use: None Drug Use: None Adult General Chief Complaint Chief Complaint: NAUSEA/VOMITING/DIARRHA HPI HPI Patient is a 58 year old -year-old female that presents to the emergency department stating that she's been having nausea, vomiting, diarrhea that's been ongoing for the last 2 weeks. The patient states the nausea and vomiting started first and then the diarrhea started a week and half ago. The patient states that she does not currently see a doctor and does not currently take her medicines for conditions such as thyroid. The patient also states that she was vomiting last night over and over again and that her jaw and shoulders hurt now. She rates her pain as 7 out of 10 and has body aches all over. Review of Systems Review of Systems Constitutional: Reports chills and body aches. Eyes: Denies change in visual acuity, redness, or eye pain [] HENT: Denies nasal congestion or sore throat [] Respiratory: Denies cough or shortness of breath [] Cardiovascular: No additional information not addressed in HPI [] GI: Reports abdominal pain, nausea, vomiting, and diarrhea [] : Denies dysuria or hematuria [] Musculoskeletal: Denies back pain or joint pain [] Integument: Denies rash or skin lesions [] Neurologic: Denies headache, focal weakness or sensory changes [] Endocrine: Denies polyuria or polydipsia [] Complete systems were reviewed and found to be within normal limits, except as documented in this note. Current Medications Current Medications Current Medications Medications (Trade) Dose Ordered Sig/Joni Start Time Stop Time Status Last Admin Dose Admin Haloperidol Lactate (Haldol Inj) 5 mg 1X ONCE 01/27/19 09:45 01/27/19 09:46 DC 01/27/19 10:18 5 MG Info (CONTRAST GIVEN -- Rx MONITORING) 1 each PRN DAILY PRN 01/27/19 10:30 01/29/19 10:29 Iohexol (Omnipaque 300 Mg/ml) 60 ml 1X ONCE 01/27/19 10:30 01/27/19 10:31 DC 01/27/19 10:48 60 ML Ketorolac Tromethamine (Toradol 15mg Vial) 10 mg 1X STAT 01/27/19 09:48 01/27/19 09:51 DC 01/27/19 10:13 10 MG Lorazepam (Ativan Inj) 2 mg 1X ONCE 01/27/19 10:00 01/27/19 10:01 DC 01/27/19 10:12 2 MG Magnesium Sulfate/ Dextrose 100 ml @ 100 mls/hr 1X ONCE 01/27/19 11:15 01/27/19 12:14 DC 01/27/19 11:32 100 MLS/HR Morphine Sulfate (Morphine Sulfate) 4 mg 1X ONCE 01/27/19 09:45 01/27/19 09:49 DC Sodium Chloride 1,000 ml @ 1,000 mls/hr 1X ONCE 01/27/19 09:45 01/27/19 10:44 DC 01/27/19 10:13 1,000 MLS/HR Allergies Allergies Allergies Coded Allergies Type Severity Reaction Last Updated Verified aspirin Allergy Intermediate 07/01/17 Yes codeine Allergy Intermediate VOMITING 07/01/17 Yes sulfamethoxazole Allergy Intermediate VOMITING 07/01/17 Yes trimethoprim Allergy Intermediate VOMITING 07/01/17 Yes Physical Exam Physical Exam Constitutional: Well developed, well nourished, anxious appearance HENT: Normocephalic, atraumatic, bilateral external ears normal, oropharynx moist, no oral exudates, nose normal. Jaw tenderness diffusely on palpation, patient is able to fully open and close mouth, and has TMJ clicking bilaterally. Eyes: PERRLA, EOMI, conjunctiva normal, no discharge. [] Neck: Normal range of motion, no tenderness, supple, no stridor. [] Cardiovascular:Heart rate regular rhythm, no murmur [] Lungs & Thorax: Bilateral breath sounds clear to auscultation [] Abdomen: Bowel sounds normal, soft, diffuse tenderness localized to LUQ, LLQ and periumbilical area, no masses, no pulsatile masses. [] Skin: Warm, dry, no erythema, no rash. [] Back: No tenderness, no CVA tenderness. [] Extremities: Tenderness to shoulder muscles bilaterally. Neurologic: Alert and oriented X 3, normal motor function, normal sensory function, no focal deficits noted. [] Psychologic: Affect normal, judgement normal, mood normal. [] Current Patient Data Vital Signs Vital Signs Date Time Temp Pulse Resp B/P (MAP) Pulse Ox O2 Delivery O2 Flow Rate FiO2 01/27/19 11:24 77 141/89 (106) 99 Room Air 01/27/19 09:15 98.1 32 98.1 Lab Values Laboratory Tests Test 01/27/19 09:30 01/27/19 09:39 Urine Collection Type Unknown Urine Color Yellow Urine Clarity Clear Urine pH 8.0 Urine Specific [place] 1.020 Urine Protein Negative mg/dL (NEG-TRACE) Urine Glucose (UA) Negative mg/dL (NEG) Urine Ketones (Stick) 15 mg/dL (NEG) Urine Blood Negative (NEG) Urine Nitrite Negative (NEG) Urine Bilirubin Negative (NEG) Urine Urobilinogen Dipstick 0.2 mg/dL (0.2 mg/dL) Urine Leukocyte Esterase Negative (NEG) Urine RBC 0 /HPF (0-2) Urine WBC Rare /HPF (0-4) Urine Squamous Epithelial Cells Mod /LPF Urine Bacteria 0 /HPF (0-FEW) Urine Mucus Mod /LPF Urine Opiates Screen Neg (NEG) Urine Methadone Screen Neg (NEG) Urine Barbiturates Neg (NEG) Urine Phencyclidine Screen Neg (NEG) Urine Amphetamine/Methamphetamine Neg (NEG) Urine Benzodiazepines Screen Pos (NEG) Urine Cocaine Screen Neg (NEG) Urine Cannabinoids Screen Pos (NEG) Urine Ethyl Alcohol Neg (NEG) White Blood Count 8.2 x10^3/uL (4.0-11.0) Red Blood Count 4.88 x10^6/uL (3.50-5.40) Hemoglobin 14.8 g/dL (12.0-15.5) Hematocrit 44.6 % (36.0-47.0) Mean Corpuscular Volume 91 fL (79-100) Mean Corpuscular Hemoglobin 30 pg (25-35) Mean Corpuscular Hemoglobin Concent 33 g/dL (31-37) Red Cell Distribution Width 14.8 % (11.5-14.5) H Platelet Count 339 x10^3/uL (140-400) Neutrophils (%) (Auto) 64 % (31-73) Lymphocytes (%) (Auto) 28 % (24-48) Monocytes (%) (Auto) 6 % (0-9) Eosinophils (%) (Auto) 1 % (0-3) Basophils (%) (Auto) 1 % (0-3) Neutrophils # (Auto) 5.2 x10^3/uL (1.8-7.7) Lymphocytes # (Auto) 2.2 x10^3/uL (1.0-4.8) Monocytes # (Auto) 0.5 x10^3/uL (0.0-1.1) Eosinophils # (Auto) 0.1 x10^3/uL (0.0-0.7) Basophils # (Auto) 0.1 x10^3/uL (0.0-0.2) Sodium Level 140 mmol/L (136-145) Potassium Level 3.7 mmol/L (3.5-5.1) Chloride Level 102 mmol/L (98-107) Carbon Dioxide Level 22 mmol/L (21-32) Anion Gap 16 (6-14) H Blood Urea Nitrogen 11 mg/dL (7-20) Creatinine 1.1 mg/dL (0.6-1.0) H Estimated GFR (Cockcroft-Gault) 51.2 BUN/Creatinine Ratio 10 (6-20) Glucose Level 117 mg/dL (70-99) H Calcium Level 10.3 mg/dL (8.5-10.1) H Magnesium Level 1.7 mg/dL (1.8-2.4) L Total Bilirubin 0.4 mg/dL (0.2-1.0) Aspartate Amino Transferase (AST) 36 U/L (15-37) Alanine Aminotransferase (ALT) 38 U/L (14-59) Alkaline Phosphatase 104 U/L (46-116) Total Protein 8.7 g/dL (6.4-8.2) H Albumin 4.6 g/dL (3.4-5.0) Albumin/Globulin Ratio 1.1 (1.0-1.7) Thyroid Stimulating Hormone (TSH) 7.496 uIU/mL (0.358-3.74) H Free Thyroxine 0.97 ng/dL (0.76-1.46) Ethyl Alcohol Level < 10 mg/dL (0-10) Laboratory Tests 01/27/19 09:39 Laboratory Tests 01/27/19 09:39 EKG EKG [] Radiology/Procedures Radiology/Procedures [][facility] [address] [place] [address] IMAGING REPORT Signed PATIENT: AIME SANCHEZ ACCOUNT: [id number] : 1960 LOCATION: ER AGE: 58 SEX: F EXAM STATUS: REG ER ORD. PHYSICIAN: PJ MARKHAM APRN REASON: abd pain PROCEDURE: CT ABD PELV W/ IV CONTRST ONLY CT of the abdomen and pelvis with IV contrast compared to noncontrast CT scan dated May 16, 2017 for abdominal pain. TECHNIQUE: Contiguous helical 5 mm axial images are obtained from the apex of diaphragm to the pelvic floor following a ministration of IV contrast. Oral contrast was withheld. Sagittal and coronal reformations are evaluated. FINDINGS: There is a tiny area of nodular ground glass opacification in the left lung base, roughly 1 cm. This may represent a small infiltrate or developing ground glass nodule. Heart size is within normal limits. There is redemonstration of a small benign-appearing cyst within the right lobe of the liver, segment 8, axial image #14. No other hepatic parenchymal abnormalities are identified. Gallbladder has been removed. The spleen, pancreas, bilateral adrenal glands, and bilateral kidneys are grossly unremarkable. There is an extrarenal pelvis on the right. No suspicious mesenteric or retroperitoneal lymphadenopathy. No free or loculated fluid collections. There are postsurgical changes in the right lower quadrant, which may relate to prior appendectomy. The appendix is not definitely identified. There are phleboliths in the pelvis. Evaluation of large and small bowel is limited by lack of oral contrast, however there is no evidence of bowel obstruction. There are innumerable sigmoid diverticula, and there is a long segment of mild diffuse sigmoid colonic dilatation. There is suggestion of some subtle mesenteric hyperemia throughout the sigmoid distribution as well. Findings could reflect uncomplicated acute diverticulitis. The urinary bladder is decompressed. There are degenerative changes of the lumbosacral spine. There are few subcentimeter sclerotic lesions in the pelvis which likely represent small bone islands. No suspicious osteoblastic or osteolytic bone lesions are evident. IMPRESSION: 1. Findings suggest uncomplicated sigmoid colonic diverticulitis. 2. 1 cm nodular groundglass opacification the left lung base. This may represent a small area of acute infiltrate or possibly a developing ground glass nodule. Follow-up according to Fleischner criteria is recommended. 3. Other chronic changes as described. Fleischner Society recommendations subsolid nodules (Radiology 2013; 266; 304-317) Solitary pure ground glass nodules: < or equal 5 mm: No CT follow up required. > 5 mm: Initial follow up CT at 3 months, if persists, then annual surveillance CT for minimum of 3 years. Solitary part solid nodules: < 5 mm: Initial follow up CT at 3 months, if persists, then annual surveillance CT for minimum of 3 years. > or equal 5 mm: Initial follow up CT at 3 months, if persists, then biopsy or surgical resection. Multiple subsolid nodules: Pure ground glass nodules < or equal 5 mm: Obtain follow up CT at 2 and 4 years. Pure ground glass nodules > 5 mm: Initial follow up CT at 3 months, then annual surveillance CT for minimum of 3 years. Dominant nodule with part solid or solid component: Initial follow up CT at 3 months. If persists, biopsy or surgical resection is recommended for lesions> 5 mm. RS Compliance Statement: One or more of the following individualized dose reduction techniques were utilized for this examination: 1. Automated exposure control 2. Adjustment of the mA and/or kV according to patient size 3. Use of iterative reconstruction technique Electronically signed by: Clayton Sparrow MD (01/27/2019 12:02 PM) [facility] DICTATED and SIGNED BY: CLAYTON SPARROW MD DATE: 01/27/19 1202 Course & Med Decision Making Course & Med Decision Making Pertinent Labs and Imaging studies reviewed. (See chart for details) Will get labs including TSH (Hx of Thyroid) and tox screen. Will also get CT scan and give supportive care. After initially asking patient about drug use she denied everything except marijuana (which she states she has not had in 3 weeks). The patient then told nursing she had stopped taking Hydrocodone and Soma at that time as well. Will g galdino Ativan and cancel morphine as I suspect patient might be going through withdrawals. Labs are unremarkable besides the elevated TSH of 7.496. Will place back on old Synthroid and have follow up with a primary care doctor. CT shows diverticulitis. Will place on Flagyl and Levaquin. Dragon Disclaimer Dragon Disclaimer This electronic medical record was generated, in whole or in part, using a voice recognition dictation system. Departure Departure Impression: Primary Impression: Diverticulitis Additional Impressions: Opioid withdrawal Hyperthyroidism Disposition: 01 HOME, SELF-CARE Condition: STABLE Referrals: NO PCP (PCP) Patient Instructions: Diverticulitis, Hyperthyroidism, Narcotic Withdrawal Additional Instructions: Thank you for visiting [facility]. We appreciate you trusting us with your care. If any additional problems come up don't hesitate to return to visit us. Please follow up with your primary care provider so they can plan additional care if needed and know about the problem that you had. If symptoms worsen come back to the Emergency Department. Any concerning symptoms that start such as chest pain, shortness of air, weakness or numbness on one side of the body, running high fevers or any other concerning symptoms return to the ER. You have been prescribed an antibiotic today to help fight your infection. Please take all of the antibiotic as directed. If after 48 hours the infection is not improving, please return for more care. If the infection worsens, return to ER for additional care. Scripts Ondansetron (ONDANSETRON ODT) 4 Mg Tab.rapdis 1 TAB PO PRN Q6-8HRS PRN for NAUSEA, #16 TAB Prov: PJ MARKHAM APRN 01/27/19 Levofloxacin (LEVOFLOXACIN) 750 Mg Tablet 1 TAB PO DAILY, #7 TAB Prov: PJ MARKHAM APRN 01/27/19 Metronidazole (FLAGYL) 500 Mg Tablet 1 TAB PO BID for 7 Days, #14 TAB Prov: PJ MARKHAM APRN 01/27/19 Levothyroxine Sodium (LEVOTHYROXINE SODIUM) 112 Mcg Tablet 1 TAB PO DAILY, #30 TAB 5 Refills Prov: PJ MARKHAM APRN 01/27/19 Problem Qualifiers PJ MARKHAM APRN Jan 27, 2019 09:42
[2019-01-27] MEDS ORDERED: MORPHINE SULFATE 4 MG/ML VIAL. IV ONE (09:45)
[2019-01-27] MEDS ORDERED: HALOPERIDOL LACTATE 5 MG/ML VIAL. IVP ONE (09:45)
[2019-01-27] MEDS ORDERED: IV NORMAL SALINE 1000ML BAG 1,000 ML IV ONE (09:45)
[2019-01-27] MEDS ORDERED: KETOROLAC 15 MG/ML VIAL. IV STA (09:48)
[2019-01-27 09:52] LABS: BASO # 0.1 x10^3/uL (0.0-0.2); BASO % 1 % (0-3); EOS # 0.1 x10^3/uL (0.0-0.7); EOS % 1 % (0-3); HEMATOCRIT 44.6 % (36.0-47.0); HEMOGLOBIN 14.8 g/dL (12.0-15.5); LYMPH # 2.2 x10^3/uL (1.0-4.8); LYMPH % 28 % (24-48); MEAN CORPUSCULAR HEMOGLOBIN 30 pg (25-35); MEAN CORPUSCULAR HGB CONC 33 g/dL (31-37); MEAN CORPUSCULAR VOLUME 91 fL (79-100); MONO # 0.5 x10^3/uL (0.0-1.1); MONO % 6 % (0-9); NEUT # 5.2 x10^3/uL (1.8-7.7); NEUT % 64 % (31-73); PLATELET COUNT 339 x10^3/uL (140-400); RED BLOOD COUNT 4.88 x10^6/uL (3.50-5.40); RED CELL DISTRIBUTION WIDTH 14.8 % (11.5-14.5); WHITE BLOOD COUNT 8.2 x10^3/uL (4.0-11.0)
[2019-01-27 09:53] LABS: BILIRUBIN,URINE NEGATIVE (NEG); CLARITY,URINE CLEAR; COLOR,URINE YELLOW; NITRITE,URINE NEGATIVE (NEG); PROTEIN,URINE NEGATIVE (NEG-TRACE); UROBILINOGEN,URINE 0.2 mg/dL (0.2 mg/dL)
[2019-01-27 10:00] LABS: CALCIUM 10.3 mg/dL (8.5-10.1); CREATININE 1.1 mg/dL (0.6-1.0); GFR 51.2; POTASSIUM 3.7 mmol/L (3.5-5.1)
[2019-01-27 10:08] LABS: ALBUMIN 4.6 g/dL (3.4-5.0); ALBUMIN/GLOBULIN RATIO 1.1 (1.0-1.7); MAGNESIUM 1.7 mg/dL (1.8-2.4); TOTAL BILIRUBIN 0.4 mg/dL (0.2-1.0); TOTAL PROTEIN 8.7 g/dL (6.4-8.2)
[2019-01-27 10:11] LABS: AMPHETAMINE/METHAMPHETAMINE NEG (NEG); BARBITURATES NEG (NEG); BENZODIAZEPINES POS (NEG); CANNABINOIDS POS (NEG); COCAINE NEG (NEG); METHADONE NEG (NEG); OPIATES NEG (NEG); PHENCYCLIDINE NEG (NEG)
[2019-01-27 10:13] LABS: RBC,URINE 0 /HPF (0-2)
[2019-01-27 10:14] LABS: BACTERIA,URINE 0 /HPF (0-FEW); SQUAMOUS EPITHELIAL CELL,UR MOD /LPF; WBC,URINE RARE /HPF (0-4)
[2019-01-27] MEDS ORDERED: IOHEXOL 300 MG/ML 100ML VIAL. IV ONE (10:30)
[2019-01-27] MEDS ORDERED: CONTRAST GIVEN. MC PRN (10:30)
[2019-01-27] MEDS ORDERED: MAGNESIUM SULFATE 1GM 100 ML IV ONE (11:15)
--- NOTE | 2019-01-27 12:05 | RAD ---
CT of the abdomen and pelvis with IV contrast compared to noncontrast CT scan dated May 16, 2017 for abdominal pain. TECHNIQUE: Contiguous helical 5 mm axial images are obtained from the apex of diaphragm to the pelvic floor following a ministration of IV contrast. Oral contrast was withheld. Sagittal and coronal reformations are evaluated. FINDINGS: There is a tiny area of nodular ground glass opacification in the left lung base, roughly 1 cm. This may represent a small infiltrate or developing ground glass nodule. Heart size is within normal limits. There is redemonstration of a small benign-appearing cyst within the right lobe of the liver, segment 8, axial image #14. No other hepatic parenchymal abnormalities are identified. Gallbladder has been removed. The spleen, pancreas, bilateral adrenal glands, and bilateral kidneys are grossly unremarkable. There is an extrarenal pelvis on the right. No suspicious mesenteric or retroperitoneal lymphadenopathy. No free or loculated fluid collections. There are postsurgical changes in the right lower quadrant, which may relate to prior appendectomy. The appendix is not definitely identified. There are phleboliths in the pelvis. Evaluation of large and small bowel is limited by lack of oral contrast, however there is no evidence of bowel obstruction. There are innumerable sigmoid diverticula, and there is a long segment of mild diffuse sigmoid colonic dilatation. There is suggestion of some subtle mesenteric hyperemia throughout the sigmoid distribution as well. Findings could reflect uncomplicated acute diverticulitis. The urinary bladder is decompressed. There are degenerative changes of the lumbosacral spine. There are few subcentimeter sclerotic lesions in the pelvis which likely represent small bone islands. No suspicious osteoblastic or osteolytic bone lesions are evident. IMPRESSION: 1. Findings suggest uncomplicated sigmoid colonic diverticulitis. 2. 1 cm nodular groundglass opacification the left lung base. This may represent a small area of acute infiltrate or possibly a developing ground glass nodule. Follow-up according to Fleischner criteria is recommended. 3. Other chronic changes as described. Fleischner Society recommendations subsolid nodules (Radiology 2013; 266; 304-317) Solitary pure ground glass nodules: < or equal 5 mm: No CT follow up required. > 5 mm: Initial follow up CT at 3 months, if persists, then annual surveillance CT for minimum of 3 years. Solitary part solid nodules: < 5 mm: Initial follow up CT at 3 months, if persists, then annual surveillance CT for minimum of 3 years. > or equal 5 mm: Initial follow up CT at 3 months, if persists, then biopsy or surgical resection. Multiple subsolid nodules: Pure ground glass nodules < or equal 5 mm: Obtain follow up CT at 2 and 4 years. Pure ground glass nodules > 5 mm: Initial follow up CT at 3 months, then annual surveillance CT for minimum of 3 years. Dominant nodule with part solid or solid component: Initial follow up CT at 3 months. If persists, biopsy or surgical resection is recommended for lesions> 5 mm. PQRS Compliance Statement: One or more of the following individualized dose reduction techniques were utilized for this examination: 1. Automated exposure control 2. Adjustment of the mA and/or kV according to patient size 3. Use of iterative reconstruction technique Electronically signed by: Clayton Medellin MD (01/27/2019 12:02 PM) [id number]
[2019-01-27] MEDS ORDERED: METR500T PO (12:18)
[2019-01-27] MEDS ORDERED: LEVO750T5 PO (12:18)
[2019-01-27] MEDS ORDERED: LEVO112T4 PO (12:18)
[2019-01-27] MEDS ORDERED: ONDA4TAB12 PO (12:27)
[2019-01-27 12:40] VITALS: BP 134/104
[2019-02-04] MEDS ORDERED: LACT1CAP19 PO (12:01)
== END 2019-01-27 12:51 | disposition home or self-care (01) ==
LOC: ER 09:13
DX: K57.92 Diverticulitis of intestine, part unspecified, without perforation or abscess without bleeding (principal); F11.23 Opioid dependence with withdrawal; E05.90 Thyrotoxicosis, unspecified without thyrotoxic crisis or storm; R11.2 Nausea with vomiting, unspecified; E78.00 Pure hypercholesterolemia, unspecified; I10 Essential (primary) hypertension; G89.29 Other chronic pain; Z90.89 Acquired absence of other organs; Z90.49 Acquired absence of other specified parts of digestive tract; Z90.710 Acquired absence of both cervix and uterus; Z88.1 Allergy status to other antibiotic agents; Z88.2 Allergy status to sulfonamides; Z88.5 Allergy status to narcotic agent; Z88.6 Allergy status to analgesic agent
CPT/HCPCS: 36415; 74177; 80053; 80307; 81001; 83735; 84439; 84443; 85025; 87493; 96361; 96365; 96375; 99285; G0480; J1630; J1885; J2060; J3475; J7030; Q9967

== ENCOUNTER 2019-01-31 13:09 | Inpatient (IN) | payer BC, MEDICARE ==
[~2019-01-31] VITALS: Ht 165.1 cm; Wt 88.9 kg
[~2019-01-31 13:09] MED LIST changes: +LEVO750T5 PO; +METR500T PO
[2019-01-31] MEDS ORDERED: IV NORMAL SALINE 1000ML BAG 1,000 ML IV SCH (13:35)
--- NOTE | 2019-01-31 13:41 | PHYS DOC ---
Past Medical History Past Medical History: Anxiety, Arthritis, Depression, Fibromyalgia, High Cholesterol, Hypertension Additional Past Medical Histor: OSTEOPORESIS, CHRONIC BACK PAIN, NARCOTIC ABUSE/BENZO ABUSE Past Surgical History: Appendectomy, Cholecystectomy, Hysterectomy, Other Additional Past Surgical Histo: RIGHT EYE,KNEE,NECK, TAILBONE SURGERY, BILAT EAR SURGERY Alcohol Use: None Drug Use: Benzodiazepine, Marijuana, Opiates Adult General Chief Complaint Chief Complaint: FLANK PAIN HPI HPI Patient is a 58-year-old female who presents with complaint of worsening abdominal pain. Patient was seen here last Friday with left lower abdominal pain. She was discharged home with diagnosis of diverticulitis and given medications for pain, nausea and antibiotics. Patient reportedly is not able to keep the nausea medication or the antibiotics down. She is rating pain to be an 8 out of 10. Patient states that she is now having pain into her back as well. Patient states that nothing is improving her pain. She states that pain is worsened with movement and with walking.[] Review of Systems Review of Systems Constitutional: Denies fever or chills [] Respiratory: Denies cough or shortness of breath [] Cardiovascular: No additional information not addressed in HPI [] GI: Complains of abdominal pain with nausea and vomiting. Denies diarrhea [] : Denies dysuria or hematuria [] Musculoskeletal: Complains of lower back pain [] Neurologic: Denies headache, focal weakness or sensory changes [] All other systems were reviewed and found to be within normal limits, except as documented in this note. Current Medications Current Medications Current Medications Medications (Trade) Dose Ordered Sig/Joni Start Time Stop Time Status Last Admin Dose Admin Hydromorphone HCl (Dilaudid) 1 mg PRN Q15MIN PRN 01/31/19 13:45 02/01/19 13:44 01/31/19 14:22 1 MG Info (CONTRAST GIVEN -- Rx MONITORING) 1 each PRN DAILY PRN 01/31/19 14:45 02/02/19 14:44 Iohexol (Omnipaque 300 Mg/ml) 75 ml 1X ONCE 01/31/19 14:45 01/31/19 14:46 DC 01/31/19 14:50 75 ML Ondansetron HCl (Zofran) 4 mg 1X ONCE 01/31/19 15:15 01/31/19 15:16 DC 01/31/19 15:04 4 MG Sodium Chloride 1,000 ml @ 1,000 mls/hr Q1H 01/31/19 13:35 01/31/19 14:34 DC 01/31/19 13:47 1,000 MLS/HR Allergies Allergies Allergies Coded Allergies Type Severity Reaction Last Updated Verified aspirin Allergy Intermediate 07/01/17 Yes codeine Allergy Intermediate VOMITING 07/01/17 Yes sulfamethoxazole Allergy Intermediate VOMITING 07/01/17 Yes trimethoprim Allergy Intermediate VOMITING 07/01/17 Yes Physical Exam Physical Exam Constitutional: Well developed, well nourished, no acute distress, non-toxic appearance. [] HENT: Normocephalic, atraumatic, bilateral external ears normal, oropharynx moist, no oral exudates, nose normal. [] Eyes: PERRLA, EOMI, conjunctiva normal, no discharge. [] Neck: Normal range of motion, no tenderness, supple, no stridor. [] Cardiovascular: Regular rate and rhythm[] Lungs & Thorax: Bilateral breath sounds clear to auscultation [] Abdomen: Bowel sounds diminished, soft, with diffuse tenderness and positive rebound. [] Skin: Warm, dry, no erythema, no rash. [] Extremities: No tenderness, no cyanosis, no clubbing, ROM intact. [] Neurologic: Alert and oriented X 3, no focal deficits noted. [] Current Patient Data Vital Signs Vital Signs Date Time Temp Pulse Resp B/P (MAP) Pulse Ox O2 Delivery O2 Flow Rate FiO2 01/31/19 15:35 82 16 116/64 (81) 91 Room Air 01/31/19 13:28 98.2 98.2 Lab Values Laboratory Tests Test 01/31/19 13:45 White Blood Count 10.6 x10^3/uL (4.0-11.0) Red Blood Count 4.98 x10^6/uL (3.50-5.40) Hemoglobin 15.2 g/dL (12.0-15.5) Hematocrit 45.4 % (36.0-47.0) Mean Corpuscular Volume 91 fL (79-100) Mean Corpuscular Hemoglobin 30 pg (25-35) Mean Corpuscular Hemoglobin Concent 33 g/dL (31-37) Red Cell Distribution Width 14.4 % (11.5-14.5) Platelet Count 354 x10^3/uL (140-400) Neutrophils (%) (Auto) 62 % (31-73) Lymphocytes (%) (Auto) 28 % (24-48) Monocytes (%) (Auto) 8 % (0-9) Eosinophils (%) (Auto) 2 % (0-3) Basophils (%) (Auto) 0 % (0-3) Neutrophils # (Auto) 6.6 x10^3/uL (1.8-7.7) Lymphocytes # (Auto) 2.9 x10^3/uL (1.0-4.8) Monocytes # (Auto) 0.8 x10^3/uL (0.0-1.1) Eosinophils # (Auto) 0.2 x10^3/uL (0.0-0.7) Basophils # (Auto) 0.0 x10^3/uL (0.0-0.2) Sodium Level 140 mmol/L (136-145) Potassium Level 3.6 mmol/L (3.5-5.1) Chloride Level 101 mmol/L (98-107) Carbon Dioxide Level 20 mmol/L (21-32) L Anion Gap 19 (6-14) H Blood Urea Nitrogen 15 mg/dL (7-20) Creatinine 0.9 mg/dL (0.6-1.0) Estimated GFR (Cockcroft-Gault) 64.5 BUN/Creatinine Ratio 17 (6-20) Glucose Level 93 mg/dL (70-99) Calcium Level 9.8 mg/dL (8.5-10.1) Total Bilirubin 0.7 mg/dL (0.2-1.0) Aspartate Amino Transferase (AST) 58 U/L (15-37) H Alanine Aminotransferase (ALT) 61 U/L (14-59) H Alkaline Phosphatase 91 U/L (46-116) Total Protein 8.4 g/dL (6.4-8.2) H Albumin 4.5 g/dL (3.4-5.0) Albumin/Globulin Ratio 1.2 (1.0-1.7) Lipase 47 U/L (73-393) L Laboratory Tests 01/31/19 13:45 Laboratory Tests 01/31/19 13:45 EKG EKG [] Radiology/Procedures Radiology/Procedures [] Impressions: PROCEDURE: CT ABD PELV W/ IV CONTRST ONLY CT ABD PELV W/ IV CONTRST ONLY History: Severe abdominal pain radiating to back. Technique: After the administration of intravenous contrast, CT imaging was performed of the abdomen and pelvis. Multiplanar images are reviewed. Contrast: 75 mL Omnipaque 300 IV contrast. Exposure: One or more of the following individualized dose reduction techniques were utilized for this examination: 1. Automated exposure control 2. Adjustment of the mA and/or kV according to patient size 3. Use of iterative reconstruction technique. Comparison: January 27, 2019 Findings: Lower chest: 6 mm left lower lobe pulmonary nodule, unchanged. No consolidation or pleural effusion. Abdomen and pelvis: Right hepatic lobe hypodensity, unchanged. Focal fatty sparing along the falciform ligament. The spleen, and adrenal glands are unremarkable. Left renal hypodensity, likely cyst, unchanged. No hydronephrosis. Pancreatic atrophy. Prior cholecystectomy. Dilated intrahepatic and extra hepatic bile ducts. Common bile measures up to 1.4 cm compared to 1.0 cm previously. Colonic diverticulosis. Decreased mesenteric hyperemia adjacent to the sigmoid colon. Prior appendectomy. No evidence of bowel obstruction. Small right lower quadrant mesenteric lymph nodes, unchanged. No ascites. Small fat-containing umbilical hernia. Prior hysterectomy. Bones: No pathologic osseous lesions. Impression: 1. Increased intrahepatic and extra hepatic biliary ductal dilatation. Recommend correlation with biliary lab values. 2. Decreased sigmoid colonic mesenteric hyperemia. 3. Pancreatic atrophy, unchanged. 4. Right hepatic lobe hypodensity, unchanged. 5. Left lower lobe pulmonary nodule, unchanged. Recommend follow-up as previously stated. 6. Left renal hypodensity, likely cyst, unchanged. Electronically signed by: Kayden Lynne DO (01/31/2019 3:26 PM) [facility] Course & Med Decision Making Course & Med Decision Making Pertinent Labs and Imaging studies reviewed. (See chart for details) [] Dragon Disclaimer Dragon Disclaimer This electronic medical record was generated, in whole or in part, using a voice recognition dictation system. Departure Departure Impression: Primary Impression: Diverticulitis Additional Impression: Intractable vomiting with nausea Disposition: ADMITTED INPATIENT Admitting Physician: KATE Condition: IMPROVED Referrals: NO PCP (PCP) Problem Qualifiers GISSELLE PIÑA Jr., DO Jan 31, 2019 13:41
[2019-01-31] MEDS ORDERED: ONDANSETRON PF 4 MG/2 ML VIAL. IV ONE ×2 (13:45→15:15)
[2019-01-31] MEDS: HYDROmorphone 2 MG/ML VIAL IV/SQ PRN ×2 (13:48→14:22)
[2019-01-31 14:25] LABS: BASO % 0 % (0-3); EOS # 0.2 x10^3/uL (0.0-0.7); EOS % 2 % (0-3); HEMATOCRIT 45.4 % (36.0-47.0); HEMOGLOBIN 15.2 g/dL (12.0-15.5); LYMPH # 2.9 x10^3/uL (1.0-4.8); LYMPH % 28 % (24-48); MEAN CORPUSCULAR HEMOGLOBIN 30 pg (25-35); MEAN CORPUSCULAR HGB CONC 33 g/dL (31-37); MEAN CORPUSCULAR VOLUME 91 fL (79-100); MONO # 0.8 x10^3/uL (0.0-1.1); MONO % 8 % (0-9); NEUT # 6.6 x10^3/uL (1.8-7.7); NEUT % 62 % (31-73); PLATELET COUNT 354 x10^3/uL (140-400); RED BLOOD COUNT 4.98 x10^6/uL (3.50-5.40); RED CELL DISTRIBUTION WIDTH 14.4 % (11.5-14.5); WHITE BLOOD COUNT 10.6 x10^3/uL (4.0-11.0)
[2019-01-31 14:33] LABS: CALCIUM 9.8 mg/dL (8.5-10.1); CREATININE 0.9 mg/dL (0.6-1.0); GFR 64.5; POTASSIUM 3.6 mmol/L (3.5-5.1)
[2019-01-31 14:39] LABS: ALBUMIN 4.5 g/dL (3.4-5.0); ALBUMIN/GLOBULIN RATIO 1.2 (1.0-1.7); TOTAL BILIRUBIN 0.7 mg/dL (0.2-1.0); TOTAL PROTEIN 8.4 g/dL (6.4-8.2)
[2019-01-31] MEDS ORDERED: IOHEXOL 300 MG/ML 100ML VIAL. IV ONE (14:45)
[2019-01-31] MEDS ORDERED: CONTRAST GIVEN. MC PRN (14:45)
--- NOTE | 2019-01-31 15:29 | RAD ---
CT ABD PELV W/ IV CONTRST ONLY History: Severe abdominal pain radiating to back. Technique: After the administration of intravenous contrast, CT imaging was performed of the abdomen and pelvis. Multiplanar images are reviewed. Contrast: 75 mL Omnipaque 300 IV contrast. Exposure: One or more of the following individualized dose reduction techniques were utilized for this examination: 1. Automated exposure control 2. Adjustment of the mA and/or kV according to patient size 3. Use of iterative reconstruction technique. Comparison: January 27, 2019 Findings: Lower chest: 6 mm left lower lobe pulmonary nodule, unchanged. No consolidation or pleural effusion. Abdomen and pelvis: Right hepatic lobe hypodensity, unchanged. Focal fatty sparing along the falciform ligament. The spleen, and adrenal glands are unremarkable. Left renal hypodensity, likely cyst, unchanged. No hydronephrosis. Pancreatic atrophy. Prior cholecystectomy. Dilated intrahepatic and extra hepatic bile ducts. Common bile measures up to 1.4 cm compared to 1.0 cm previously. Colonic diverticulosis. Decreased mesenteric hyperemia adjacent to the sigmoid colon. Prior appendectomy. No evidence of bowel obstruction. Small right lower quadrant mesenteric lymph nodes, unchanged. No ascites. Small fat-containing umbilical hernia. Prior hysterectomy. Bones: No pathologic osseous lesions. Impression: 1. Increased intrahepatic and extra hepatic biliary ductal dilatation. Recommend correlation with biliary lab values. 2. Decreased sigmoid colonic mesenteric hyperemia. 3. Pancreatic atrophy, unchanged. 4. Right hepatic lobe hypodensity, unchanged. 5. Left lower lobe pulmonary nodule, unchanged. Recommend follow-up as previously stated. 6. Left renal hypodensity, likely cyst, unchanged. Electronically signed by: Kayden Lynne DO (01/31/2019 3:26 PM) [facility]
[2019-01-31] MEDS ORDERED: ONDANSETRON PF 4 MG/2 ML VIAL. IV PRN (16:00)
[2019-01-31] MEDS ORDERED: diphenhydrAMINE 50 MG/ML VIAL IVP ONE (16:00)
[2019-01-31] MEDS ORDERED: METOCLOPRAMIDE HCL 10 MG/2 ML VIAL. IVP ONE (16:00)
[2019-01-31] MEDS: MORPHINE SULFATE 4 MG/ML VIAL. IV PRN ×2 (16:03→19:53)
[2019-01-31] MEDS: IV NORMAL SALINE 1000ML BAG 1,000 ML IV SCH ×2 (16:04→17:00)
--- NOTE | 2019-01-31 16:08 | PDOC1 ---
History and Physical Date of Admission Date of Admission DATE: 01/31/19 TIME: 16:07 Identification/Chief Complaint Chief Complaint SEEN IN ER , was discharged home with diagnosis of diverticulitis and given medications for pain, nausea and antibiotics. Patient reportedly is not able to keep the nausea medication or the antibiotics down. She is rating pain to be an 8 out of 10. Patient states that she is now having pain into her back as well. Patient states that nothing is improving her pain. pain is worsened with movement and with walking.[] Past Medical History Past Medical History Past Medical History Past Medical History: Anxiety, Arthritis, Depression, Fibromyalgia, High Cholesterol, Hypertension Additional Past Medical Histor: OSTEOPORESIS, CHRONIC BACK PAIN, NARCOTIC ABUSE/BENZO ABUSE Past Surgical History: Appendectomy, Cholecystectomy, Hysterectomy, Other Additional Past Surgical Histo: RIGHT EYE,KNEE,NECK, TAILBONE SURGERY, BILAT EAR SURGERY Alcohol Use: None Drug Use: Benzodiazepine, Marijuana, Opiates Cardiovascular: HTN, Hyperlipidemia Pulmonary: COPD CENTRAL NERVOUS SYSTEM: Periperal neuropathy Psych: Anxiety, Depression Musculoskeletal: Osteoarthritis Rheumatologic: Fibromyalgia Renal/: UTI, Urinary Incontinence Endocrine: Hypothyroidism, Osteopenia Past Surgical History Past Surgical History: Cholecystectomy, Cataract Removal, Hysterectomy, Other Family History Family History Past Medical History Cardiovascular: HTN, Hyperlipidemia Pulmonary: COPD CENTRAL NERVOUS SYSTEM: Periperal neuropathy Psych: Anxiety, Depression Musculoskeletal: Osteoarthritis Rheumatologic: Fibromyalgia Renal/: UTI, Urinary Incontinence Endocrine: Hypothyroidism, Osteopenia Past Surgical History Past Surgical History: Cholecystectomy, Cataract Removal, Hysterectomy, Other (cervical spine, right knee, ear surgeries.) Family History Family History: Hypertension Social History Smoke: Quit ALCOHOL: none Drugs: Marijuana Family History: Hypertension Social History Smoke: Quit ALCOHOL: occassional Drugs: Marijuana Current Problem List Problem List Problems Medical Problems: (1) Diverticulitis Status: Acute (2) Intractable vomiting with nausea Status: Acute Current Medications Current Medications Current Medications Hydromorphone HCl (Dilaudid) 1 mg PRN Q15MIN PRN IV/SQ PAIN GREATER THAN 3/10 Last administered on 01/31/19at 14:22; Start 01/31/19 at 13:45; Stop 02/01/19 at 13:44 Sodium Chloride 1,000 ml @ 1,000 mls/hr Q1H IV Last administered on 01/31/19at 13:47; Start 01/31/19 at 13:35; Stop 01/31/19 at 14:34; Status DC Ondansetron HCl (Zofran) 4 mg 1X ONCE IV Last administered on 01/31/19at 13:48; Start 01/31/19 at 13:45; Stop 01/31/19 at 13:46; Status DC Iohexol (Omnipaque 300 Mg/ml) 75 ml 1X ONCE IV Last administered on 01/31/19at 14:50; Start 01/31/19 at 14:45; Stop 01/31/19 at 14:46; Status DC Info (CONTRAST GIVEN -- Rx MONITORING) 1 each PRN DAILY PRN MC SEE COMMENTS; Start 01/31/19 at 14:45; Stop 02/02/19 at 14:44 Ondansetron HCl (Zofran) 4 mg 1X ONCE IV Last administered on 01/31/19at 15:04; Start 01/31/19 at 15:15; Stop 01/31/19 at 15:16; Status DC Ondansetron HCl (Zofran) 4 mg PRN Q8HRS PRN IV NAUSEA/VOMITING; Start 01/31/19 at 16:00; Stop 02/01/19 at 15:59 Morphine Sulfate (Morphine Sulfate) 4 mg PRN Q2HR PRN IV PAIN Last administered on 01/31/19at 16:03; Start 01/31/19 at 16:00; Stop 02/01/19 at 15:59 Sodium Chloride 1,000 ml @ 125 mls/hr Q8H IV Last administered on 01/31/19at 16:04; Start 01/31/19 at 16:00; Stop 02/01/19 at 15:59 Metoclopramide HCl (Reglan Vial) 10 mg 1X ONCE IVP Last administered on at 16:01; Start 01/31/19 at 16:00; Stop 01/31/19 at 16:01; Status DC Diphenhydramine HCl (Benadryl) 25 mg 1X ONCE IVP Last administered on 01/31/19at 16:03; Start 01/31/19 at 16:00; Stop 01/31/19 at 16:01; Status DC Active Scripts Active Ondansetron Odt (Ondansetron) 4 Mg Tab.rapdis 1 Tab PO PRN Q6-8HRS PRN Levofloxacin 750 Mg Tablet 1 Tab PO DAILY Flagyl (Metronidazole) 500 Mg Tablet 1 Tab PO BID 7 Days Levothyroxine Sodium 112 Mcg Tablet 1 Tab PO DAILY Reported Alendronate Sodium 70 Mg Tablet 1 Tab PO WEEKLY Folic Acid 1 Mg Tablet 1 Tab PO DAILY Trazodone Hcl 150 Mg Tablet 1 Tab PO QHS Simvastatin 20 Mg Tablet 1 Tab PO QHS Ondansetron Odt (Ondansetron) 4 Mg Tab.rapdis 1 Tab PO PRN Q6-8HRS Omeprazole 40 Mg Capsule.dr 1 Cap PO DAILY Losartan Potassium 50 Mg Tablet 50 Mg PO DAILY Soma (Carisoprodol) 350 Mg Tablet 1 Tab PO TID Lyrica (Pregabalin) 300 Mg Capsule 300 Mg PO DAILY Cymbalta (Duloxetine Hcl) 60 Mg Capsule.dr 60 Mg PO DAILY Xanax (Alprazolam) 1 Mg Tablet Unknown Dose PO PRN Q6HRS PRN Allergies Allergies: Coded Allergies: aspirin (Verified Allergy, Intermediate, 07/01/17) codeine (Verified Allergy, Intermediate, VOMITING, 07/01/17) 04/19/14 PT REPORTS TO RN SHE'S HAD MORPHINE BEFORE WITHOUT PROBLEMS sulfamethoxazole (Verified Allergy, Intermediate, VOMITING, 07/01/17) trimethoprim (Verified Allergy, Intermediate, VOMITING, 07/01/17) ROS Review of System Review of Systems Review of Systems Constitutional: Denies fever or chills [] Respiratory: Denies cough or shortness of breath [] Cardiovascular: No additional information not addressed in HPI [] GI: Complains of abdominal pain with nausea and vomiting. Denies diarrhea [] : Denies dysuria or hematuria [] Musculoskeletal: Complains of lower back pain [] Neurologic: Denies headache, focal weakness or sensory changes [] 14 PT systems were reviewed and found to be within normal limits, except as documented General: YES: Fatigue Respiratory: No: Cough, Hemoptysis, Orthopnea, Pleuritic Pain, Shortness of breath, SOB with excertion, Sputum Changes, Stridor, Tachypnea, Wheezing, Other Physical Exam Physical Exam Physical Exam Physical Exam Constitutional: Well developed, well nourished, MILD acute distress, non-toxic appearance. [] HENT: Normocephalic, atraumatic, bilateral external ears normal, oropharynx moist, no oral exudates, nose normal. [] Eyes: PERRLA, EOMI, conjunctiva normal, no discharge. [] Neck: Normal range of motion, no tenderness, supple, no stridor. [] Cardiovascular: Regular rate and rhythm[] Lungs & Thorax: Bilateral breath sounds clear to auscultation [] Abdomen: Bowel sounds diminished, soft, with diffuse tenderness and positive rebound. [] Skin: Warm, dry, no erythema, no rash. [] Extremities: No tenderness, no cyanosis, no clubbing, ROM intact. [] Neurologic: Alert and oriented X 3, no focal deficits noted. [] General: Alert, Oriented X3, Cooperative, mild distress HEENT: EOMI, Mucous membr. moist/pink Lungs: Clear to auscultation, Normal air movement Heart: RRR Breasts: Not examined Abdomen: Normal bowel sounds, Soft, No masses Rectal Exam: not examined PELVIC: Examination not indicated Neuro: Normal speech, Cranial nerves 3-12 NL Psych/Mental Status: Mental status NL, Mood NL Vitals Vitals Vital Signs Date Time Temp Pulse Resp B/P (MAP) Pulse Ox O2 Delivery O2 Flow Rate FiO2 01/31/19 16:03 20 01/31/19 15:35 82 116/64 (81) 91 Room Air 01/31/19 13:28 98.2 98.2 Labs Labs Laboratory Tests Test 01/31/19 13:45 White Blood Count 10.6 x10^3/uL (4.0-11.0) Red Blood Count 4.98 x10^6/uL (3.50-5.40) Hemoglobin 15.2 g/dL (12.0-15.5) Hematocrit 45.4 % (36.0-47.0) Mean Corpuscular Volume 91 fL (79-100) Mean Corpuscular Hemoglobin 30 pg (25-35) Mean Corpuscular Hemoglobin Concent 33 g/dL (31-37) Red Cell Distribution Width 14.4 % (11.5-14.5) Platelet Count 354 x10^3/uL (140-400) Neutrophils (%) (Auto) 62 % (31-73) Lymphocytes (%) (Auto) 28 % (24-48) Monocytes (%) (Auto) 8 % (0-9) Eosinophils (%) (Auto) 2 % (0-3) Basophils (%) (Auto) 0 % (0-3) Neutrophils # (Auto) 6.6 x10^3/uL (1.8-7.7) Lymphocytes # (Auto) 2.9 x10^3/uL (1.0-4.8) Monocytes # (Auto) 0.8 x10^3/uL (0.0-1.1) Eosinophils # (Auto) 0.2 x10^3/uL (0.0-0.7) Basophils # (Auto) 0.0 x10^3/uL (0.0-0.2) Sodium Level 140 mmol/L (136-145) Potassium Level 3.6 mmol/L (3.5-5.1) Chloride Level 101 mmol/L (98-107) Carbon Dioxide Level 20 mmol/L (21-32) Anion Gap 19 (6-14) Blood Urea Nitrogen 15 mg/dL (7-20) Creatinine 0.9 mg/dL (0.6-1.0) Estimated GFR (Cockcroft-Gault) 64.5 BUN/Creatinine Ratio 17 (6-20) Glucose Level 93 mg/dL (70-99) Calcium Level 9.8 mg/dL (8.5-10.1) Total Bilirubin 0.7 mg/dL (0.2-1.0) Aspartate Amino Transf (AST/SGOT) 58 U/L (15-37) Alanine Aminotransferase (ALT/SGPT) 61 U/L (14-59) Alkaline Phosphatase 91 U/L (46-116) Total Protein 8.4 g/dL (6.4-8.2) Albumin 4.5 g/dL (3.4-5.0) Albumin/Globulin Ratio 1.2 (1.0-1.7) Lipase 47 U/L (73-393) Laboratory Tests Test 01/31/19 13:45 White Blood Count 10.6 x10^3/uL (4.0-11.0) Red Blood Count 4.98 x10^6/uL (3.50-5.40) Hemoglobin 15.2 g/dL (12.0-15.5) Hematocrit 45.4 % (36.0-47.0) Mean Corpuscular Volume 91 fL (79-100) Mean Corpuscular Hemoglobin 30 pg (25-35) Mean Corpuscular Hemoglobin Concent 33 g/dL (31-37) Red Cell Distribution Width 14.4 % (11.5-14.5) Platelet Count 354 x10^3/uL (140-400) Neutrophils (%) (Auto) 62 % (31-73) Lymphocytes (%) (Auto) 28 % (24-48) Monocytes (%) (Auto) 8 % (0-9) Eosinophils (%) (Auto) 2 % (0-3) Basophils (%) (Auto) 0 % (0-3) Neutrophils # (Auto) 6.6 x10^3/uL (1.8-7.7) Lymphocytes # (Auto) 2.9 x10^3/uL (1.0-4.8) Monocytes # (Auto) 0.8 x10^3/uL (0.0-1.1) Eosinophils # (Auto) 0.2 x10^3/uL (0.0-0.7) Basophils # (Auto) 0.0 x10^3/uL (0.0-0.2) Sodium Level 140 mmol/L (136-145) Potassium Level 3.6 mmol/L (3.5-5.1) Chloride Level 101 mmol/L (98-107) Carbon Dioxide Level 20 mmol/L (21-32) Anion Gap 19 (6-14) Blood Urea Nitrogen 15 mg/dL (7-20) Creatinine 0.9 mg/dL (0.6-1.0) Estimated GFR (Cockcroft-Gault) 64.5 BUN/Creatinine Ratio 17 (6-20) Glucose Level 93 mg/dL (70-99) Calcium Level 9.8 mg/dL (8.5-10.1) Total Bilirubin 0.7 mg/dL (0.2-1.0) Aspartate Amino Transf (AST/SGOT) 58 U/L (15-37) Alanine Aminotransferase (ALT/SGPT) 61 U/L (14-59) Alkaline Phosphatase 91 U/L (46-116) Total Protein 8.4 g/dL (6.4-8.2) Albumin 4.5 g/dL (3.4-5.0) Albumin/Globulin Ratio 1.2 (1.0-1.7) Lipase 47 U/L (73-393) Images Images History: Severe abdominal pain radiating to back. Technique: After the administration of intravenous contrast, CT imaging was performed of the abdomen and pelvis. Multiplanar images are reviewed. Contrast: 75 mL Omnipaque 300 IV contrast. Exposure: One or more of the following individualized dose reduction techniques were utilized for this examination: 1. Automated exposure control 2. Adjustment of the mA and/or kV according to patient size 3. Use of iterative reconstruction technique. Comparison: January 27, 2019 Findings: Lower chest: 6 mm left lower lobe pulmonary nodule, unchanged. No consolidation or pleural effusion. Abdomen and pelvis: Right hepatic lobe hypodensity, unchanged. Focal fatty sparing along the falciform ligament. The spleen, and adrenal glands are unremarkable. Left renal hypodensity, likely cyst, unchanged. No hydronephrosis. Pancreatic atrophy. Prior cholecystectomy. Dilated intrahepatic and extra hepatic bile ducts. Common bile measures up to 1.4 cm compared to 1.0 cm previously. Colonic diverticulosis. Decreased mesenteric hyperemia adjacent to the sigmoid colon. Prior appendectomy. No evidence of bowel obstruction. Small right lower quadrant mesenteric lymph nodes, unchanged. No ascites. Small fat-containing umbilical hernia. Prior hysterectomy. Bones: No pathologic osseous lesions. Impression: 1. Increased intrahepatic and extra hepatic biliary ductal dilatation. Recommend correlation with biliary lab values. 2. Decreased sigmoid colonic mesenteric hyperemia. 3. Pancreatic atrophy, unchanged. 4. Right hepatic lobe hypodensity, unchanged. 5. Left lower lobe pulmonary nodule, unchanged. Recommend follow-up as previously stated. 6. Left renal hypodensity, likely cyst, unchanged. Electronically signed by: Isac Delatorre DO (01/31/2019 3:26 PM) [facility] DICTATED and SIGNED BY: ISAC DELATORRE DO DATE: 01/31/19 1526 VTE Prophylaxis Ordered VTE Prophylaxis Devices: No VTE Pharmacological Prophylaxi: Yes Assessment/Plan Assessment/Plan Impression: Diverticulitis, ACUTE ON CT , Findings suggest uncomplicated sigmoid colonic diverticulitis. Dilated intrahepatic and extra hepatic bile ducts. FAILED OUT PT TREATMENT Intractable vomiting with nausea HYPERLIPIDEMIA THC ABUSE PLAN ADMIT IV FLUID SUPPORT IV ZOFRAN 4 MG Q 4 HRS PRN DVT PROPHYLAXIS IV ANTIBIOTICS GI CONSULT 57 MIN PT EXAM, CHART REVIEW, > 50% of time spent with exam, chart review, pt care coordination YOEL MATHEW MD Jan 31, 2019 16:07
[2019-01-31] MEDS ORDERED: ONDANSETRON ODT 4 MG TAB.RAPDIS. PO PRN (16:30)
[2019-01-31] MEDS ORDERED: ZOLPIDEM 5 MG TABLET. PO PRN (16:45)
[2019-01-31] MEDS ORDERED: guaiFENesin ORAL 200 MG/10 ML LIQUID. PO PRN (16:45)
[2019-01-31] MEDS ORDERED: ACETAMINOPHEN 325 MG TABLET. PO PRN (16:45)
[2019-01-31] MEDS ORDERED: cloNIDine HCL 0.1 MG TABLET PO PRN (16:45)
[2019-01-31] MEDS ORDERED: MAG HYDROX/ALUMINUM HYD/SIMETH 30 ML ORAL.SUSP PO PRN (16:45)
[2019-01-31] MEDS ORDERED: DOCUSATE SODIUM 100 MG CAPSULE. PO PRN (16:45)
[2019-01-31] MEDS ORDERED: LORazepam 0.5 MG TABLET PO PRN (16:45)
[2019-01-31] MEDS ORDERED: 0.9 % SODIUM CHLORIDE 10 ML DISP.SYRIN. IV PRN (16:45)
[2019-01-31] MEDS ORDERED: HYDROmorphone 2 MG/ML VIAL IV PRN (16:45)
[2019-01-31 17:00] VITALS: BP 128/98
[2019-01-31] MEDS: CIPROFLOXACIN 400MG PREMIX 200 ML IV SCH (17:13)
--- NOTE | 2019-01-31 17:57 | NUR ---
The patient, AIME SANCHEZ, 58 y/o, F admitted by YOEL MATHEW MD, was given written information regarding hospital policies, unit procedures and contact persons. Consults called in. ABT & fluids administered as ordered. Valuables were checked and logged.
[2019-01-31] MEDS ORDERED: C.DIFF MED SCREEN BY RX. MC ONE (18:00)
[2019-01-31] MEDS ORDERED: HYDR28OI6 TD (18:24)
[2019-01-31 19:00] VITALS: BP 119/77
[2019-01-31] MEDS: ONDANSETRON PF 4 MG/2 ML VIAL. IV PRN (19:53)
[2019-01-31] MEDS: IPRATRPIUM/ALBUTEROL 0.5/2.5MG 3 ML NEBU. NEB SCH (20:06)
[2019-01-31] MEDS: traZODone 50 MG TABLET. PO SCH (20:49)
[2019-01-31] MEDS: SIMVASTATIN 20 MG TABLET PO SCH (20:49)
[2019-01-31 21:32] LABS: BILIRUBIN,URINE MODERATE (NEG); CLARITY,URINE CLEAR; COLOR,URINE YELLOW; NITRITE,URINE NEGATIVE (NEG); PH,URINE 5.5; PROTEIN,URINE 30 mg/dL (NEG-TRACE); UROBILINOGEN,URINE 0.2 mg/dL (0.2 mg/dL)
[2019-01-31 21:44] LABS: SQUAMOUS EPITHELIAL CELL,UR MOD /LPF
[2019-01-31 21:45] LABS: BACTERIA,URINE MODERATE /HPF (0-FEW)
[2019-01-31 23:01] VITALS: BP 140/91
[2019-02-01] MEDS: IV NORMAL SALINE 1000ML BAG 1,000 ML IV SCH ×5 (03:00→20:57)
[2019-02-01 03:02] VITALS: BP 139/84
[2019-02-01 04:11] LABS: BASO % 1 % (0-3); EOS # 0.3 x10^3/uL (0.0-0.7); EOS % 3 % (0-3); HEMATOCRIT 38.1 % (36.0-47.0); HEMOGLOBIN 12.7 g/dL (12.0-15.5); LYMPH # 2.3 x10^3/uL (1.0-4.8); LYMPH % 29 % (24-48); MEAN CORPUSCULAR HEMOGLOBIN 31 pg (25-35); MEAN CORPUSCULAR HGB CONC 34 g/dL (31-37); MEAN CORPUSCULAR VOLUME 92 fL (79-100); MONO # 0.7 x10^3/uL (0.0-1.1); MONO % 9 % (0-9); NEUT # 4.8 x10^3/uL (1.8-7.7); NEUT % 59 % (31-73); PLATELET COUNT 285 x10^3/uL (140-400); RED BLOOD COUNT 4.14 x10^6/uL (3.50-5.40); RED CELL DISTRIBUTION WIDTH 14.5 % (11.5-14.5); WHITE BLOOD COUNT 8.1 x10^3/uL (4.0-11.0)
[2019-02-01 05:09] LABS: CALCIUM 8.7 mg/dL (8.5-10.1); CREATININE 0.8 mg/dL (0.6-1.0); GFR 73.9; POTASSIUM 3.4 mmol/L (3.5-5.1)
[2019-02-01 07:00] VITALS: BP 135/84
--- NOTE | 2019-02-01 07:13 | EKG ---
[facility] [address] [place] [address] Test Date: 2019-01-31 Test Time: 13:57:44 Pat Name: AIME SANCHEZ Department: Room: 576 1 Gender: F [employer]ational [employer] Education Director: : 1960 Requested By: GISSELLE PIÑA Order Number: [id number] Reading MD: Martin Barrios MD Measurements Intervals [place] Rate: 92 P: 35 ID: [id number] QRS: 30 QRSD: 88 T: -64 QT: 380 QTc: 475 Interpretive Statements SINUS RHYTHM NON-SPECIFIC ST/T CHANGES Electronically Signed On 02-15-2019 9:13:05 [employer] by Martin Barrios MD
[2019-02-01] MEDS ORDERED: PANTOPRAZOLE 40 MG TABLET.DR. PO SCH (07:30)
[2019-02-01] MEDS: LEVOTHYROXINE 112 MCG TABLET PO SCH (07:49)
[2019-02-01] MEDS: ONDANSETRON PF 4 MG/2 ML VIAL. IV PRN ×3 (07:50→18:39)
[2019-02-01] MEDS: IPRATRPIUM/ALBUTEROL 0.5/2.5MG 3 ML NEBU. NEB SCH ×4 (08:00→19:42)
[2019-02-01] MEDS: LOSARTAN POTASSIUM 50 MG TABLET. PO SCH (08:10)
[2019-02-01] MEDS: FOLIC ACID 1 MG TABLET. PO SCH (08:10)
[2019-02-01] MEDS: PREGABALIN 75 MG CAPSULE PO SCH (08:10)
[2019-02-01] MEDS: DULoxetine HCL 30 MG CAPSULE.DR PO SCH (08:10)
[2019-02-01] MEDS: CIPROFLOXACIN 400MG PREMIX 200 ML IV SCH ×2 (08:32→20:55)
[2019-02-01] MEDS: ENOXAPARIN 40 MG/0.4 ML SYRINGE. SQ SCH (08:33)
[2019-02-01] MEDS: MORPHINE SULFATE 4 MG/ML VIAL. IV PRN ×2 (08:34→14:13)
--- NOTE | 2019-02-01 09:21 | PDOC ---
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 (3x) Intractable vomiting with nausea HYPERLIPIDEMIA THC ABUSE History of Present Illness History of Present Illness REad triage note, no PCP Pharmacy refused to refill hydrocodones, xanax and soma bec she was marijuana positive She is on dilaudid 1 mg IVP q 2 here among others Complains of lower abd pain I made NPO after review CT bec of dilated intra and extra hepatic bile ducts She has very midly elevatet AST 56, the rest unimpressive She had diarrhea x 3 days and 1.5 weeks hx abd pain NO reprots diarrhea today, bucket at bedside PLAN: COnt IVF and IV abx and NPO, with GI consult Vitals Vitals Vital Signs Date Time Temp Pulse Resp B/P (MAP) Pulse Ox O2 Delivery O2 Flow Rate FiO2 02/01/19 07:00 97.9 98 18 135/84 (101) 98 Room Air 97.9 Physical Exam General: Alert, Oriented X3, Cooperative, mild distress Heart: Regular rate, Normal S1, Normal S2, No murmurs Lungs: Clear Abdomen: Normal bowel sounds, Soft, No masses, Other (tenderness Lower abd ) Extremities: No clubbing, No cyanosis, No edema Skin: No rashes, No breakdown, No significant lesion Labs LABS Laboratory Tests Test 01/31/19 13:45 01/31/19 21:19 02/01/19 03:03 White Blood Count 10.6 x10^3/uL (4.0-11.0) 8.1 x10^3/uL (4.0-11.0) Red Blood Count 4.98 x10^6/uL (3.50-5.40) 4.14 x10^6/uL (3.50-5.40) Hemoglobin 15.2 g/dL (12.0-15.5) 12.7 g/dL (12.0-15.5) Hematocrit 45.4 % (36.0-47.0) 38.1 % (36.0-47.0) Mean Corpuscular Volume 91 fL (79-100) 92 fL (79-100) Mean Corpuscular Hemoglobin 30 pg (25-35) 31 pg (25-35) Mean Corpuscular Hemoglobin Concent 33 g/dL (31-37) 34 g/dL (31-37) Red Cell Distribution Width 14.4 % (11.5-14.5) 14.5 % (11.5-14.5) Platelet Count 354 x10^3/uL (140-400) 285 x10^3/uL (140-400) Neutrophils (%) (Auto) 62 % (31-73) 59 % (31-73) Lymphocytes (%) (Auto) 28 % (24-48) 29 % (24-48) Monocytes (%) (Auto) 8 % (0-9) 9 % (0-9) Eosinophils (%) (Auto) 2 % (0-3) 3 % (0-3) Basophils (%) (Auto) 0 % (0-3) 1 % (0-3) Neutrophils # (Auto) 6.6 x10^3/uL (1.8-7.7) 4.8 x10^3/uL (1.8-7.7) Lymphocytes # (Auto) 2.9 x10^3/uL (1.0-4.8) 2.3 x10^3/uL (1.0-4.8) Monocytes # (Auto) 0.8 x10^3/uL (0.0-1.1) 0.7 x10^3/uL (0.0-1.1) Eosinophils # (Auto) 0.2 x10^3/uL (0.0-0.7) 0.3 x10^3/uL (0.0-0.7) Basophils # (Auto) 0.0 x10^3/uL (0.0-0.2) 0.0 x10^3/uL (0.0-0.2) Sodium Level 140 mmol/L (136-145) 142 mmol/L (136-145) Potassium Level 3.6 mmol/L (3.5-5.1) 3.4 mmol/L (3.5-5.1) Chloride Level 101 mmol/L (98-107) 106 mmol/L (98-107) Carbon Dioxide Level 20 mmol/L (21-32) 20 mmol/L (21-32) Anion Gap 19 (6-14) 16 (6-14) Blood Urea Nitrogen 15 mg/dL (7-20) 11 mg/dL (7-20) Creatinine 0.9 mg/dL (0.6-1.0) 0.8 mg/dL (0.6-1.0) Estimated GFR (Cockcroft-Gault) 64.5 73.9 BUN/Creatinine Ratio 17 (6-20) Glucose Level 93 mg/dL (70-99) 86 mg/dL (70-99) Calcium Level 9.8 mg/dL (8.5-10.1) 8.7 mg/dL (8.5-10.1) Total Bilirubin 0.7 mg/dL (0.2-1.0) Aspartate Amino Transf (AST/SGOT) 58 U/L (15-37) Alanine Aminotransferase (ALT/SGPT) 61 U/L (14-59) Alkaline Phosphatase 91 U/L (46-116) Total Protein 8.4 g/dL (6.4-8.2) Albumin 4.5 g/dL (3.4-5.0) Albumin/Globulin Ratio 1.2 (1.0-1.7) Lipase 47 U/L (73-393) Urine Collection Type Unknown Urine Color Yellow Urine Clarity Clear Urine pH 5.5 Urine Specific [place] >=1.030 Urine Protein 30 mg/dL (NEG-TRACE) Urine Glucose (UA) Negative mg/dL (NEG) Urine Ketones (Stick) >=80 mg/dL (NEG) Urine Blood Negative (NEG) Urine Nitrite Negative (NEG) Urine Bilirubin Moderate (NEG) Urine Urobilinogen Dipstick 0.2 mg/dL (0.2 mg/dL) Urine Leukocyte Esterase Negative (NEG) Urine RBC 1-2 /HPF (0-2) Urine WBC 1-4 /HPF (0-4) Urine Squamous Epithelial Cells Mod /LPF Urine Bacteria Moderate /HPF (0-FEW) Review of Systems Review of Systems abd pain, nausea, no diarrhea, no fevers, no emesis Assessment and Plan Assessmemt and Plan Problems Medical Problems: (1) Diverticulitis Status: Acute (2) Intractable vomiting with nausea Status: Acute Comment Review of Relevant I have reviewed the following items geovanny (where applicable) has been applied. Labs Laboratory Tests Test 01/31/19 13:45 01/31/19 21:19 02/01/19 03:03 White Blood Count 10.6 x10^3/uL (4.0-11.0) 8.1 x10^3/uL (4.0-11.0) Red Blood Count 4.98 x10^6/uL (3.50-5.40) 4.14 x10^6/uL (3.50-5.40) Hemoglobin 15.2 g/dL (12.0-15.5) 12.7 g/dL (12.0-15.5) Hematocrit 45.4 % (36.0-47.0) 38.1 % (36.0-47.0) Mean Corpuscular Volume 91 fL (79-100) 92 fL (79-100) Mean Corpuscular Hemoglobin 30 pg (25-35) 31 pg (25-35) Mean Corpuscular Hemoglobin Concent 33 g/dL (31-37) 34 g/dL (31-37) Red Cell Distribution Width 14.4 % (11.5-14.5) 14.5 % (11.5-14.5) Platelet Count 354 x10^3/uL (140-400) 285 x10^3/uL (140-400) Neutrophils (%) (Auto) 62 % (31-73) 59 % (31-73) Lymphocytes (%) (Auto) 28 % (24-48) 29 % (24-48) Monocytes (%) (Auto) 8 % (0-9) 9 % (0-9) Eosinophils (%) (Auto) 2 % (0-3) 3 % (0-3) Basophils (%) (Auto) 0 % (0-3) 1 % (0-3) Neutrophils # (Auto) 6.6 x10^3/uL (1.8-7.7) 4.8 x10^3/uL (1.8-7.7) Lymphocytes # (Auto) 2.9 x10^3/uL (1.0-4.8) 2.3 x10^3/uL (1.0-4.8) Monocytes # (Auto) 0.8 x10^3/uL (0.0-1.1) 0.7 x10^3/uL (0.0-1.1) Eosinophils # (Auto) 0.2 x10^3/uL (0.0-0.7) 0.3 x10^3/uL (0.0-0.7) Basophils # (Auto) 0.0 x10^3/uL (0.0-0.2) 0.0 x10^3/uL (0.0-0.2) Sodium Level 140 mmol/L (136-145) 142 mmol/L (136-145) Potassium Level 3.6 mmol/L (3.5-5.1) 3.4 mmol/L (3.5-5.1) Chloride Level 101 mmol/L (98-107) 106 mmol/L (98-107) Carbon Dioxide Level 20 mmol/L (21-32) 20 mmol/L (21-32) Anion Gap 19 (6-14) 16 (6-14) Blood Urea Nitrogen 15 mg/dL (7-20) 11 mg/dL (7-20) Creatinine 0.9 mg/dL (0.6-1.0) 0.8 mg/dL (0.6-1.0) Estimated GFR (Cockcroft-Gault) 64.5 73.9 BUN/Creatinine Ratio 17 (6-20) Glucose Level 93 mg/dL (70-99) 86 mg/dL (70-99) Calcium Level 9.8 mg/dL (8.5-10.1) 8.7 mg/dL (8.5-10.1) Total Bilirubin 0.7 mg/dL (0.2-1.0) Aspartate Amino Transf (AST/SGOT) 58 U/L (15-37) Alanine Aminotransferase (ALT/SGPT) 61 U/L (14-59) Alkaline Phosphatase 91 U/L (46-116) Total Protein 8.4 g/dL (6.4-8.2) Albumin 4.5 g/dL (3.4-5.0) Albumin/Globulin Ratio 1.2 (1.0-1.7) Lipase 47 U/L (73-393) Urine Collection Type Unknown Urine Color Yellow Urine Clarity Clear Urine pH 5.5 Urine Specific [place] >=1.030 Urine Protein 30 mg/dL (NEG-TRACE) Urine Glucose (UA) Negative mg/dL (NEG) Urine Ketones (Stick) >=80 mg/dL (NEG) Urine Blood Negative (NEG) Urine Nitrite Negative (NEG) Urine Bilirubin Moderate (NEG) Urine Urobilinogen Dipstick 0.2 mg/dL (0.2 mg/dL) Urine Leukocyte Esterase Negative (NEG) Urine RBC 1-2 /HPF (0-2) Urine WBC 1-4 /HPF (0-4) Urine Squamous Epithelial Cells Mod /LPF Urine Bacteria Moderate /HPF (0-FEW) Laboratory Tests Test 01/31/19 13:45 01/31/19 21:19 02/01/19 03:03 White Blood Count 10.6 x10^3/uL (4.0-11.0) 8.1 x10^3/uL (4.0-11.0) Red Blood Count 4.98 x10^6/uL (3.50-5.40) 4.14 x10^6/uL (3.50-5.40) Hemoglobin 15.2 g/dL (12.0-15.5) 12.7 g/dL (12.0-15.5) Hematocrit 45.4 % (36.0-47.0) 38.1 % (36.0-47.0) Mean Corpuscular Volume 91 fL (79-100) 92 fL (79-100) Mean Corpuscular Hemoglobin 30 pg (25-35) 31 pg (25-35) Mean Corpuscular Hemoglobin Concent 33 g/dL (31-37) 34 g/dL (31-37) Red Cell Distribution Width 14.4 % (11.5-14.5) 14.5 % (11.5-14.5) Platelet Count 354 x10^3/uL (140-400) 285 x10^3/uL (140-400) Neutrophils (%) (Auto) 62 % (31-73) 59 % (31-73) Lymphocytes (%) (Auto) 28 % (24-48) 29 % (24-48) Monocytes (%) (Auto) 8 % (0-9) 9 % (0-9) Eosinophils (%) (Auto) 2 % (0-3) 3 % (0-3) Basophils (%) (Auto) 0 % (0-3) 1 % (0-3) Neutrophils # (Auto) 6.6 x10^3/uL (1.8-7.7) 4.8 x10^3/uL (1.8-7.7) Lymphocytes # (Auto) 2.9 x10^3/uL (1.0-4.8) 2.3 x10^3/uL (1.0-4.8) Monocytes # (Auto) 0.8 x10^3/uL (0.0-1.1) 0.7 x10^3/uL (0.0-1.1) Eosinophils # (Auto) 0.2 x10^3/uL (0.0-0.7) 0.3 x10^3/uL (0.0-0.7) Basophils # (Auto) 0.0 x10^3/uL (0.0-0.2) 0.0 x10^3/uL (0.0-0.2) Sodium Level 140 mmol/L (136-145) 142 mmol/L (136-145) Potassium Level 3.6 mmol/L (3.5-5.1) 3.4 mmol/L (3.5-5.1) Chloride Level 101 mmol/L (98-107) 106 mmol/L (98-107) Carbon Dioxide Level 20 mmol/L (21-32) 20 mmol/L (21-32) Anion Gap 19 (6-14) 16 (6-14) Blood Urea Nitrogen 15 mg/dL (7-20) 11 mg/dL (7-20) Creatinine 0.9 mg/dL (0.6-1.0) 0.8 mg/dL (0.6-1.0) Estimated GFR (Cockcroft-Gault) 64.5 73.9 BUN/Creatinine Ratio 17 (6-20) Glucose Level 93 mg/dL (70-99) 86 mg/dL (70-99) Calcium Level 9.8 mg/dL (8.5-10.1) 8.7 mg/dL (8.5-10.1) Total Bilirubin 0.7 mg/dL (0.2-1.0) Aspartate Amino Transf (AST/SGOT) 58 U/L (15-37) Alanine Aminotransferase (ALT/SGPT) 61 U/L (14-59) Alkaline Phosphatase 91 U/L (46-116) Total Protein 8.4 g/dL (6.4-8.2) Albumin 4.5 g/dL (3.4-5.0) Albumin/Globulin Ratio 1.2 (1.0-1.7) Lipase 47 U/L (73-393) Urine Collection Type Unknown Urine Color Yellow Urine Clarity Clear Urine pH 5.5 Urine Specific [place] >=1.030 Urine Protein 30 mg/dL (NEG-TRACE) Urine Glucose (UA) Negative mg/dL (NEG) Urine Ketones (Stick) >=80 mg/dL (NEG) Urine Blood Negative (NEG) Urine Nitrite Negative (NEG) Urine Bilirubin Moderate (NEG) Urine Urobilinogen Dipstick 0.2 mg/dL (0.2 mg/dL) Urine Leukocyte Esterase Negative (NEG) Urine RBC 1-2 /HPF (0-2) Urine WBC 1-4 /HPF (0-4) Urine Squamous Epithelial Cells Mod /LPF Urine Bacteria Moderate /HPF (0-FEW) Medications Current Medications Hydromorphone HCl (Dilaudid) 1 mg PRN Q15MIN PRN IV/SQ PAIN GREATER THAN 3/10 Last administered on 01/31/19at 14:22; Start 01/31/19 at 13:45; Stop 02/01/19 at 07:53; Status DC Sodium Chloride 1,000 ml @ 1,000 mls/hr Q1H IV Last administered on 01/31/19at 13:47; Start 01/31/19 at 13:35; Stop 01/31/19 at 14:34; Status DC Ondansetron HCl (Zofran) 4 mg 1X ONCE IV Last administered on 01/31/19at 13:48; Start 01/31/19 at 13:45; Stop 01/31/19 at 13:46; Status DC Iohexol (Omnipaque 300 Mg/ml) 75 ml 1X ONCE IV Last administered on 01/31/19at 14:50; Start 01/31/19 at 14:45; Stop 01/31/19 at 14:46; Status DC Info (CONTRAST GIVEN -- Rx MONITORING) 1 each PRN DAILY PRN MC SEE COMMENTS; Start 01/31/19 at 14:45; Stop 02/02/19 at 14:44 Ondansetron HCl (Zofran) 4 mg 1X ONCE IV Last administered on 01/31/19at 15:04; Start 01/31/19 at 15:15; Stop 01/31/19 at 15:16; Status DC Ondansetron HCl (Zofran) 4 mg PRN Q8HRS PRN IV NAUSEA/VOMITING; Start 01/31/19 at 16:00; Stop 02/01/19 at 15:59 Morphine Sulfate (Morphine Sulfate) 4 mg PRN Q2HR PRN IV PAIN Last administered on 02/01/19at 08:34; Start 01/31/19 at 16:00; Stop 02/01/19 at 15:59 Sodium Chloride 1,000 ml @ 125 mls/hr Q8H IV Last administered on 02/01/19at 08:32; Start 01/31/19 at 16:00; Stop 02/01/19 at 15:59 Metoclopramide HCl (Reglan Vial) 10 mg 1X ONCE IVP Last administered on 01/31/19at 16:01; Start 01/31/19 at 16:00; Stop 01/31/19 at 16:01; Status DC Diphenhydramine HCl (Benadryl) 25 mg 1X ONCE IVP Last administered on 01/31/19at 16:03; Start 01/31/19 at 16:00; Stop 01/31/19 at 16:01; Status DC Alprazolam (Xanax) 0.5 mg PRN Q6HRS PRN PO ANXIETY / AGITATION; Start 01/31/19 at 16:30 Folic Acid (Folic Acid) 1 mg DAILY PO ; Start 02/01/19 at 09:00 Levothyroxine Sodium (Synthroid) 112 mcg DAILY07 PO Last administered on 02/01/19at 07:49; Start 02/01/19 at 07:00 Losartan Potassium (Cozaar) 50 mg DAILY PO ; Start 02/01/19 at 09:00 Ondansetron HCl (Zofran Odt) 4 mg PRN Q48HR PRN PO NAUSEA/VOMITING Last administered on 01/31/19at 22:08; Start 01/31/19 at 16:30 Simvastatin (Zocor) 20 mg QHS PO Last administered on 01/31/19at 20:49; Start 01/31/19 at 21:00 Non-Formulary Medication (Alendronate Sodium ) 1 tab WEEKLY PO ; Start 02/07/19 at 09:00; Status UNV Duloxetine HCl (Cymbalta) 60 mg DAILY PO ; Start 02/01/19 at 09:00 Pantoprazole Sodium (Protonix) 40 mg DAILYAC PO Last administered on 02/01/19at 07:49; Start 02/01/19 at 07:30 Pregabalin (Lyrica) 300 mg DAILY PO ; Start 02/01/19 at 09:00 Trazodone HCl (Desyrel) 50 mg QHS PO Last administered on 01/31/19at 20:49; Start 01/31/19 at 21:00 Metronidazole 100 ml @ 100 mls/hr Q8HRS IV Last administered on 02/01/19at 06:22; Start 01/31/19 at 17:00 Ciprofloxacin/ Dextrose 200 ml @ 200 mls/hr BID IV Last administered on 02/01/19at 08:32; Start 01/31/19 at 17:00 Sodium Chloride (Normal Saline Flush) 3 ml QSHIFT PRN IV AFTER MEDS AND BLOOD DRAWS; Start 01/31/19 at 16:45 Sodium Chloride 1,000 ml @ 100 mls/hr Q10H IV Last administered on 02/01/19at 03:00; Start 01/31/19 at 17:00 Ondansetron HCl (Zofran) 4 mg PRN Q4HRS PRN IV NAUSEA/VOMITING Last administered on 02/01/19at 07:50; Start 01/31/19 at 16:45 Zolpidem Tartrate (Ambien) 5 mg PRN QHS PRN PO INSOMNIA; Start 01/31/19 at 16:45 Acetaminophen (Tylenol) 650 mg PRN Q4HRS PRN PO TEMP OVER 100.4F OR MILD PAIN; Start 01/31/19 at 16:45 Al Hydroxide/Mg Hydroxide (Mylanta Plus Xs) 30 ml PRN DAILY PRN PO HEARTBURN / GAS; Start 01/31/19 at 16:45 Clonidine HCl (Catapres) 0.1 mg PRN Q6HRS PRN PO SBP>160 OR DBP>90; Start 01/31/19 at 16:45 Docusate Sodium (Colace) 100 mg PRN BID PRN PO CONSTIPATION; Start 01/31/19 at 16:45 Albuterol/ Ipratropium (Duoneb) 3 ml RTQID NEB Last administered on 01/31/19at 20:06; Start 01/31/19 at 20:00 Guaifenesin (Robitussin) 200 mg PRN Q4HRS PRN PO COUGH; Start 01/31/19 at 16:45 Lorazepam (Ativan) 0.5 mg PRN Q4HRS PRN PO ANXIETY / AGITATION 2ND CHOICE; Start 01/31/19 at 16:45 Hydromorphone HCl (Dilaudid) 1 mg PRN Q2HRS PRN IV SEVERE PAIN 7-10; Start 01/31/19 at 16:45 Enoxaparin Sodium (Lovenox 40mg Syringe) 40 mg DAILY SQ Last administered on 02/01/19at 08:33; Start 02/01/19 at 09:00 Pharmacy Consult (C.diff Med Screen By Rx) 1 each 1X ONCE MC ; Start 01/31/19 at 18:00; Stop 01/31/19 at 18:01; Status UNV Active Scripts Active Ondansetron Odt (Ondansetron) 4 Mg Tab.rapdis 1 Tab PO PRN Q6-8HRS PRN Levofloxacin 750 Mg Tablet 1 Tab PO DAILY Flagyl (Metronidazole) 500 Mg Tablet 1 Tab PO BID 7 Days Levothyroxine Sodium 112 Mcg Tablet 1 Tab PO DAILY Reported Anti-Itch (Hydrocortisone Acetate) 28 Gm Oint...g. 1 Misc TD PRN Q4-6HRS PRN Alendronate Sodium 70 Mg Tablet 1 Tab PO WEEKLY Folic Acid 1 Mg Tablet 1 Tab PO DAILY Trazodone Hcl 150 Mg Tablet 1 Tab PO QHS Simvastatin 20 Mg Tablet 1 Tab PO QHS Ondansetron Odt (Ondansetron) 4 Mg Tab.rapdis 1 Tab PO PRN Q6-8HRS Omeprazole 40 Mg Capsule.dr 1 Cap PO DAILY Losartan Potassium 50 Mg Tablet 50 Mg PO DAILY Soma (Carisoprodol) 350 Mg Tablet 1 Tab PO TID Lyrica (Pregabalin) 300 Mg Capsule 300 Mg PO DAILY Cymbalta (Duloxetine Hcl) 60 Mg Capsule.dr 60 Mg PO DAILY Xanax (Alprazolam) 1 Mg Tablet Unknown Dose PO PRN Q6HRS PRN Vitals/I & O Vital Sign - Last 24 Hours 01/31/19 01/31/19 01/31/19 01/31/19 13:28 13:48 14:01 14:17 Temp 98.2 98.2 Pulse 98 87 Resp 20 20 20 20 B/P (MAP) 132/92 (105) 126/84 (98) Pulse Ox 98 86 O2 Delivery Room Air 01/31/19 01/31/19 01/31/19 01/31/19 14:22 14:52 14:57 14:57 Pulse 88 85 Resp 18 18 18 18 B/P (MAP) 127/77 (94) 127/77 (94) Pulse Ox 90 95 O2 Delivery Room Air Room Air 01/31/19 01/31/19 01/31/19 01/31/19 15:30 15:35 15:57 16:03 Pulse 86 82 78 Resp 18 16 18 20 B/P (MAP) 123/68 (86) 116/64 (81) 112/75 (87) Pulse Ox 93 91 95 O2 Delivery Room Air Room Air 01/31/19 01/31/19 01/31/19 01/31/19 16:14 16:33 17:00 19:00 Temp 97.4 97.8 97.4 97.8 Pulse 85 101 82 Resp 18 20 20 B/P (MAP) 135/78 (97) 128/98 (108) 119/77 (91) Pulse Ox 96 96 95 O2 Delivery Room Air Room Air Room Air Room Air 01/31/19 01/31/19 01/31/19 01/31/19 19:53 20:00 20:10 20:23 Pulse Ox 95 94 95 O2 Delivery Room Air Room Air 01/31/19 02/01/19 02/01/19 23:01 03:02 07:00 Temp 97.6 97.9 97.9 97.6 97.9 97.9 Pulse 109 84 98 Resp 20 18 18 B/P (MAP) 140/91 (107) 139/84 (102) 135/84 (101) Pulse Ox 94 94 98 O2 Delivery Room Air Room Air Room Air Intake and Output 01/31/19 01/31/19 02/01/19 15:00 23:00 07:00 Intake Total 2350 ml Output Total 300 ml Balance 2350 ml -300 ml ZANA GUZMAN MD Feb 01, 2019 09:21
--- NOTE | 2019-02-01 09:31 | NUR ---
Pharmacy Medication Review S: Consulted for medication review re: C.diff Risk Assessment score of 4 O: AIME SANCHEZ is a 58 year old with: Previous C.diff infection: No Previous hospitalization: Within 30 days Recent antibiotics: Within 30 days Use of gastric acid suppressor: No Transfer from [place]/LTAC: No Current antibiotic regimen: CIPRO/METRONIDAZOLE Current acid suppression regimen: PANTOPRAZOLE A: Patient has been identified as having risk factors for C.diff infection as noted above. P: ABX DE-ESCALATION RECOMMENDED: NO, HAS ACUTE DIVERTICULITIS PROBIOTIC ORDERED: NO, PT NPO AT THIS TIME PPI CHANGED TO L2OEFPOCH: NO, PT HAS DX OF GERD ORLIN SANDERSON, [facility], 02/01/19 [id number]
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
[2019-02-01 10:47] VITALS: BP 138/80
--- NOTE | 2019-02-01 11:38 | NUR ---
SW following for discharge planning. Discussed with RN, pt is from home. Currently no SW needs. SW will continue to follow should any discharge planning needs arise.
[2019-02-01 13:10] LABS: AMPHETAMINE/METHAMPHETAMINE NEG (NEG); BARBITURATES NEG (NEG); BENZODIAZEPINES NEG (NEG); CANNABINOIDS POS (NEG); COCAINE NEG (NEG); METHADONE NEG (NEG); OPIATES POS (NEG); PHENCYCLIDINE NEG (NEG)
[2019-02-01 15:06] VITALS: BP 134/80
[2019-02-01] MEDS: PROCHLORPERAZINE 10 MG/2 ML VIAL. IV PRN (16:15)
[2019-02-01 19:00] VITALS: BP 147/99
[2019-02-01] MEDS: traZODone 50 MG TABLET. PO SCH (20:57)
[2019-02-01] MEDS: SIMVASTATIN 20 MG TABLET PO SCH (20:57)
[2019-02-01 23:00] VITALS: BP 146/87
[2019-02-02 02:33] VITALS: BP 142/71
[2019-02-02 03:55] LABS: BASO % 1 % (0-3); EOS # 0.3 x10^3/uL (0.0-0.7); EOS % 4 % (0-3); HEMATOCRIT 37.7 % (36.0-47.0); HEMOGLOBIN 12.7 g/dL (12.0-15.5); LYMPH % 28 % (24-48); MEAN CORPUSCULAR HEMOGLOBIN 31 pg (25-35); MEAN CORPUSCULAR HGB CONC 34 g/dL (31-37); MEAN CORPUSCULAR VOLUME 91 fL (79-100); MONO # 0.6 x10^3/uL (0.0-1.1); MONO % 8 % (0-9); NEUT # 4.3 x10^3/uL (1.8-7.7); NEUT % 60 % (31-73); PLATELET COUNT 302 x10^3/uL (140-400); RED BLOOD COUNT 4.15 x10^6/uL (3.50-5.40); RED CELL DISTRIBUTION WIDTH 14.3 % (11.5-14.5); WHITE BLOOD COUNT 7.2 x10^3/uL (4.0-11.0)
[2019-02-02 04:09] LABS: ALBUMIN 3.5 g/dL (3.4-5.0); ALBUMIN/GLOBULIN RATIO 1.2 (1.0-1.7); CALCIUM 8.6 mg/dL (8.5-10.1); CREATININE 0.6 mg/dL (0.6-1.0); GFR 102.7; POTASSIUM 3.5 mmol/L (3.5-5.1); TOTAL BILIRUBIN 0.4 mg/dL (0.2-1.0); TOTAL PROTEIN 6.5 g/dL (6.4-8.2)
[2019-02-02] MEDS: ONDANSETRON PF 4 MG/2 ML VIAL. IV PRN (06:07)
[2019-02-02 06:33] VITALS: BP 157/79
[2019-02-02] MEDS: IPRATRPIUM/ALBUTEROL 0.5/2.5MG 3 ML NEBU. NEB SCH ×3 (08:00→19:52)
[2019-02-02] MEDS: IV NORMAL SALINE 1000ML BAG 1,000 ML IV SCH ×2 (08:47→21:08)
[2019-02-02] MEDS: CIPROFLOXACIN 400MG PREMIX 200 ML IV SCH ×2 (08:48→21:07)
[2019-02-02] MEDS: PROCHLORPERAZINE 10 MG/2 ML VIAL. IV PRN (08:52)
[2019-02-02] MEDS: LOSARTAN POTASSIUM 50 MG TABLET. PO SCH (08:55)
[2019-02-02] MEDS: LEVOTHYROXINE 112 MCG TABLET PO SCH (08:55)
[2019-02-02] MEDS: PREGABALIN 75 MG CAPSULE PO SCH (08:55)
[2019-02-02] MEDS: PANTOPRAZOLE IV PUSH 40 MG VIAL. IVP SCH (08:56)
[2019-02-02] MEDS: DULoxetine HCL 30 MG CAPSULE.DR PO SCH (08:56)
[2019-02-02] MEDS: FOLIC ACID 1 MG TABLET. PO SCH (09:00)
[2019-02-02] MEDS: ENOXAPARIN 40 MG/0.4 ML SYRINGE. SQ SCH (09:00)
--- NOTE | 2019-02-02 10:48 | PDOC ---
Subjective: Subjective: Vomited yesterday. "When can I go home?" Says she's restless and "can't stay in this bed." Objective: Objective: Nurse says she's asking to discharge - got Compazine this morning, tolerated some pills and water. Vital Signs: Vital Signs Date Time Temp Pulse Resp B/P (MAP) Pulse Ox O2 Delivery O2 Flow Rate FiO2 02/02/19 08:55 93 157/79 02/02/19 06:33 98.5 18 97 Room Air 98.5 Labs: Laboratory Tests Test 02/01/19 12:50 02/02/19 03:10 Urine Opiates Screen Pos Urine Methadone Screen Neg Urine Barbiturates Neg Urine Phencyclidine Screen Neg Urine Amphetamine/Methamphetamine Neg Urine Benzodiazepines Screen Neg Urine Cocaine Screen Neg Urine Cannabinoids Screen Pos Urine Ethyl Alcohol Neg White Blood Count 7.2 x10^3/uL Red Blood Count 4.15 x10^6/uL Hemoglobin 12.7 g/dL Hematocrit 37.7 % Mean Corpuscular Volume 91 fL Mean Corpuscular Hemoglobin 31 pg Mean Corpuscular Hemoglobin Concent 34 g/dL Red Cell Distribution Width 14.3 % Platelet Count 302 x10^3/uL Neutrophils (%) (Auto) 60 % Lymphocytes (%) (Auto) 28 % Monocytes (%) (Auto) 8 % Eosinophils (%) (Auto) 4 % Basophils (%) (Auto) 1 % Neutrophils # (Auto) 4.3 x10^3/uL Lymphocytes # (Auto) 2.0 x10^3/uL Monocytes # (Auto) 0.6 x10^3/uL Eosinophils # (Auto) 0.3 x10^3/uL Basophils # (Auto) 0.0 x10^3/uL Sodium Level 141 mmol/L Potassium Level 3.5 mmol/L Chloride Level 105 mmol/L Carbon Dioxide Level 21 mmol/L Anion Gap 15 Blood Urea Nitrogen 3 mg/dL Creatinine 0.6 mg/dL Estimated GFR (Cockcroft-Gault) 102.7 BUN/Creatinine Ratio 5 Glucose Level 83 mg/dL Calcium Level 8.6 mg/dL Total Bilirubin 0.4 mg/dL Aspartate Amino Transf (AST/SGOT) 40 U/L Alanine Aminotransferase (ALT/SGPT) 45 U/L Alkaline Phosphatase 74 U/L Total Protein 6.5 g/dL Albumin 3.5 g/dL Albumin/Globulin Ratio 1.2 PE: GEN: NAD LUNGS: CTAB HEART: RRR ABD: NABS, S/ND/NT NEURO/PSYCH: A & O 3 A/P: N/v - better Mildly elevated LFTs - better ?diverticulitis - LLQ pain better +marijuana -- Clears, ADAT, thao to PO PPI if tolerates and consider DC. Needs refills of pantoprazole and Linzess on DC. TAO OLIVARES Feb 02, 2019 10:48
[2019-02-02 11:00] VITALS: BP 138/70
--- NOTE | 2019-02-02 11:20 | PDOC ---
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 (3x) Intractable vomiting with nausea HYPERLIPIDEMIA THC ABUSE History of Present Illness History of Present Illness GI has started clear diet No more tests She feels better but not the best EARLIER ENTRY REad triage note, no PCP Pharmacy refused to refill hydrocodones, xanax and soma bec she was marijuana positive HEr HPI: She had diarrhea x 3 days and 1.5 weeks hx abd pain NO reports diarrhea since admit PLAN: Clears then ADAT She knows we aim dc tmr, She will need PPI and linzess and pain meds for sure on dc tmr Vitals Vitals Vital Signs Date Time Temp Pulse Resp B/P (MAP) Pulse Ox O2 Delivery O2 Flow Rate FiO2 02/02/19 08:55 93 157/79 02/02/19 06:33 98.5 18 97 Room Air 98.5 Physical Exam General: Alert, Oriented X3, Cooperative, mild distress Heart: Regular rate, Normal S1, Normal S2, No murmurs Lungs: Clear Abdomen: Normal bowel sounds, Soft, No masses, Other (tenderness Lower abd ) Extremities: No clubbing, No cyanosis, No edema Skin: No rashes, No breakdown, No significant lesion Labs LABS Laboratory Tests Test 02/01/19 12:50 02/02/19 03:10 Urine Opiates Screen Pos (NEG) Urine Methadone Screen Neg (NEG) Urine Barbiturates Neg (NEG) Urine Phencyclidine Screen Neg (NEG) Urine Amphetamine/Methamphetamine Neg (NEG) Urine Benzodiazepines Screen Neg (NEG) Urine Cocaine Screen Neg (NEG) Urine Cannabinoids Screen Pos (NEG) Urine Ethyl Alcohol Neg (NEG) White Blood Count 7.2 x10^3/uL (4.0-11.0) Red Blood Count 4.15 x10^6/uL (3.50-5.40) Hemoglobin 12.7 g/dL (12.0-15.5) Hematocrit 37.7 % (36.0-47.0) Mean Corpuscular Volume 91 fL (79-100) Mean Corpuscular Hemoglobin 31 pg (25-35) Mean Corpuscular Hemoglobin Concent 34 g/dL (31-37) Red Cell Distribution Width 14.3 % (11.5-14.5) Platelet Count 302 x10^3/uL (140-400) Neutrophils (%) (Auto) 60 % (31-73) Lymphocytes (%) (Auto) 28 % (24-48) Monocytes (%) (Auto) 8 % (0-9) Eosinophils (%) (Auto) 4 % (0-3) Basophils (%) (Auto) 1 % (0-3) Neutrophils # (Auto) 4.3 x10^3/uL (1.8-7.7) Lymphocytes # (Auto) 2.0 x10^3/uL (1.0-4.8) Monocytes # (Auto) 0.6 x10^3/uL (0.0-1.1) Eosinophils # (Auto) 0.3 x10^3/uL (0.0-0.7) Basophils # (Auto) 0.0 x10^3/uL (0.0-0.2) Sodium Level 141 mmol/L (136-145) Potassium Level 3.5 mmol/L (3.5-5.1) Chloride Level 105 mmol/L (98-107) Carbon Dioxide Level 21 mmol/L (21-32) Anion Gap 15 (6-14) Blood Urea Nitrogen 3 mg/dL (7-20) Creatinine 0.6 mg/dL (0.6-1.0) Estimated GFR (Cockcroft-Gault) 102.7 BUN/Creatinine Ratio 5 (6-20) Glucose Level 83 mg/dL (70-99) Calcium Level 8.6 mg/dL (8.5-10.1) Total Bilirubin 0.4 mg/dL (0.2-1.0) Aspartate Amino Transf (AST/SGOT) 40 U/L (15-37) Alanine Aminotransferase (ALT/SGPT) 45 U/L (14-59) Alkaline Phosphatase 74 U/L (46-116) Total Protein 6.5 g/dL (6.4-8.2) Albumin 3.5 g/dL (3.4-5.0) Albumin/Globulin Ratio 1.2 (1.0-1.7) Review of Systems Review of Systems nausea, no emesis, no diarrhea, some abd dc, no cp, no fevers, rest 14 pt neg Assessment and Plan Assessmemt and Plan Problems Medical Problems: (1) Diverticulitis Status: Acute (2) Intractable vomiting with nausea Status: Acute Comment Review of Relevant I have reviewed the following items geovanny (where applicable) has been applied. Labs Laboratory Tests Test 01/31/19 13:45 01/31/19 21:19 02/01/19 03:03 02/01/19 12:50 White Blood Count 10.6 x10^3/uL (4.0-11.0) 8.1 x10^3/uL (4.0-11.0) Red Blood Count 4.98 x10^6/uL (3.50-5.40) 4.14 x10^6/uL (3.50-5.40) Hemoglobin 15.2 g/dL (12.0-15.5) 12.7 g/dL (12.0-15.5) Hematocrit 45.4 % (36.0-47.0) 38.1 % (36.0-47.0) Mean Corpuscular Volume 91 fL (79-100) 92 fL (79-100) Mean Corpuscular Hemoglobin 30 pg (25-35) 31 pg (25-35) Mean Corpuscular Hemoglobin Concent 33 g/dL (31-37) 34 g/dL (31-37) Red Cell Distribution Width 14.4 % (11.5-14.5) 14.5 % (11.5-14.5) Platelet Count 354 x10^3/uL (140-400) 285 x10^3/uL (140-400) Neutrophils (%) (Auto) 62 % (31-73) 59 % (31-73) Lymphocytes (%) (Auto) 28 % (24-48) 29 % (24-48) Monocytes (%) (Auto) 8 % (0-9) 9 % (0-9) Eosinophils (%) (Auto) 2 % (0-3) 3 % (0-3) Basophils (%) (Auto) 0 % (0-3) 1 % (0-3) Neutrophils # (Auto) 6.6 x10^3/uL (1.8-7.7) 4.8 x10^3/uL (1.8-7.7) Lymphocytes # (Auto) 2.9 x10^3/uL (1.0-4.8) 2.3 x10^3/uL (1.0-4.8) Monocytes # (Auto) 0.8 x10^3/uL (0.0-1.1) 0.7 x10^3/uL (0.0-1.1) Eosinophils # (Auto) 0.2 x10^3/uL (0.0-0.7) 0.3 x10^3/uL (0.0-0.7) Basophils # (Auto) 0.0 x10^3/uL (0.0-0.2) 0.0 x10^3/uL (0.0-0.2) Sodium Level 140 mmol/L (136-145) 142 mmol/L (136-145) Potassium Level 3.6 mmol/L (3.5-5.1) 3.4 mmol/L (3.5-5.1) Chloride Level 101 mmol/L (98-107) 106 mmol/L (98-107) Carbon Dioxide Level 20 mmol/L (21-32) 20 mmol/L (21-32) Anion Gap 19 (6-14) 16 (6-14) Blood Urea Nitrogen 15 mg/dL (7-20) 11 mg/dL (7-20) Creatinine 0.9 mg/dL (0.6-1.0) 0.8 mg/dL (0.6-1.0) Estimated GFR (Cockcroft-Gault) 64.5 73.9 BUN/Creatinine Ratio 17 (6-20) Glucose Level 93 mg/dL (70-99) 86 mg/dL (70-99) Calcium Level 9.8 mg/dL (8.5-10.1) 8.7 mg/dL (8.5-10.1) Total Bilirubin 0.7 mg/dL (0.2-1.0) Aspartate Amino Transf (AST/SGOT) 58 U/L (15-37) Alanine Aminotransferase (ALT/SGPT) 61 U/L (14-59) Alkaline Phosphatase 91 U/L (46-116) Total Protein 8.4 g/dL (6.4-8.2) Albumin 4.5 g/dL (3.4-5.0) Albumin/Globulin Ratio 1.2 (1.0-1.7) Lipase 47 U/L (73-393) Urine Collection Type Unknown Urine Color Yellow Urine Clarity Clear Urine pH 5.5 Urine Specific Hitchcock >=1.030 Urine Protein 30 mg/dL (NEG-TRACE) Urine Glucose (UA) Negative mg/dL (NEG) Urine Ketones (Stick) >=80 mg/dL (NEG) Urine Blood Negative (NEG) Urine Nitrite Negative (NEG) Urine Bilirubin Moderate (NEG) Urine Urobilinogen Dipstick 0.2 mg/dL (0.2 mg/dL) Urine Leukocyte Esterase Negative (NEG) Urine RBC 1-2 /HPF (0-2) Urine WBC 1-4 /HPF (0-4) Urine Squamous Epithelial Cells Mod /LPF Urine Bacteria Moderate /HPF (0-FEW) Urine Opiates Screen Pos (NEG) Urine Methadone Screen Neg (NEG) Urine Barbiturates Neg (NEG) Urine Phencyclidine Screen Neg (NEG) Urine Amphetamine/Methamphetamine Neg (NEG) Urine Benzodiazepines Screen Neg (NEG) Urine Cocaine Screen Neg (NEG) Urine Cannabinoids Screen Pos (NEG) Urine Ethyl Alcohol Neg (NEG) Test 02/02/19 03:10 White Blood Count 7.2 x10^3/uL (4.0-11.0) Red Blood Count 4.15 x10^6/uL (3.50-5.40) Hemoglobin 12.7 g/dL (12.0-15.5) Hematocrit 37.7 % (36.0-47.0) Mean Corpuscular Volume 91 fL (79-100) Mean Corpuscular Hemoglobin 31 pg (25-35) Mean Corpuscular Hemoglobin Concent 34 g/dL (31-37) Red Cell Distribution Width 14.3 % (11.5-14.5) Platelet Count 302 x10^3/uL (140-400) Neutrophils (%) (Auto) 60 % (31-73) Lymphocytes (%) (Auto) 28 % (24-48) Monocytes (%) (Auto) 8 % (0-9) Eosinophils (%) (Auto) 4 % (0-3) Basophils (%) (Auto) 1 % (0-3) Neutrophils # (Auto) 4.3 x10^3/uL (1.8-7.7) Lymphocytes # (Auto) 2.0 x10^3/uL (1.0-4.8) Monocytes # (Auto) 0.6 x10^3/uL (0.0-1.1) Eosinophils # (Auto) 0.3 x10^3/uL (0.0-0.7) Basophils # (Auto) 0.0 x10^3/uL (0.0-0.2) Sodium Level 141 mmol/L (136-145) Potassium Level 3.5 mmol/L (3.5-5.1) Chloride Level 105 mmol/L (98-107) Carbon Dioxide Level 21 mmol/L (21-32) Anion Gap 15 (6-14) Blood Urea Nitrogen 3 mg/dL (7-20) Creatinine 0.6 mg/dL (0.6-1.0) Estimated GFR (Cockcroft-Gault) 102.7 BUN/Creatinine Ratio 5 (6-20) Glucose Level 83 mg/dL (70-99) Calcium Level 8.6 mg/dL (8.5-10.1) Total Bilirubin 0.4 mg/dL (0.2-1.0) Aspartate Amino Transf (AST/SGOT) 40 U/L (15-37) Alanine Aminotransferase (ALT/SGPT) 45 U/L (14-59) Alkaline Phosphatase 74 U/L (46-116) Total Protein 6.5 g/dL (6.4-8.2) Albumin 3.5 g/dL (3.4-5.0) Albumin/Globulin Ratio 1.2 (1.0-1.7) Laboratory Tests Test 02/01/19 12:50 02/02/19 03:10 Urine Opiates Screen Pos (NEG) Urine Methadone Screen Neg (NEG) Urine Barbiturates Neg (NEG) Urine Phencyclidine Screen Neg (NEG) Urine Amphetamine/Methamphetamine Neg (NEG) Urine Benzodiazepines Screen Neg (NEG) Urine Cocaine Screen Neg (NEG) Urine Cannabinoids Screen Pos (NEG) Urine Ethyl Alcohol Neg (NEG) White Blood Count 7.2 x10^3/uL (4.0-11.0) Red Blood Count 4.15 x10^6/uL (3.50-5.40) Hemoglobin 12.7 g/dL (12.0-15.5) Hematocrit 37.7 % (36.0-47.0) Mean Corpuscular Volume 91 fL (79-100) Mean Corpuscular Hemoglobin 31 pg (25-35) Mean Corpuscular Hemoglobin Concent 34 g/dL (31-37) Red Cell Distribution Width 14.3 % (11.5-14.5) Platelet Count 302 x10^3/uL (140-400) Neutrophils (%) (Auto) 60 % (31-73) Lymphocytes (%) (Auto) 28 % (24-48) Monocytes (%) (Auto) 8 % (0-9) Eosinophils (%) (Auto) 4 % (0-3) Basophils (%) (Auto) 1 % (0-3) Neutrophils # (Auto) 4.3 x10^3/uL (1.8-7.7) Lymphocytes # (Auto) 2.0 x10^3/uL (1.0-4.8) Monocytes # (Auto) 0.6 x10^3/uL (0.0-1.1) Eosinophils # (Auto) 0.3 x10^3/uL (0.0-0.7) Basophils # (Auto) 0.0 x10^3/uL (0.0-0.2) Sodium Level 141 mmol/L (136-145) Potassium Level 3.5 mmol/L (3.5-5.1) Chloride Level 105 mmol/L (98-107) Carbon Dioxide Level 21 mmol/L (21-32) Anion Gap 15 (6-14) Blood Urea Nitrogen 3 mg/dL (7-20) Creatinine 0.6 mg/dL (0.6-1.0) Estimated GFR (Cockcroft-Gault) 102.7 BUN/Creatinine Ratio 5 (6-20) Glucose Level 83 mg/dL (70-99) Calcium Level 8.6 mg/dL (8.5-10.1) Total Bilirubin 0.4 mg/dL (0.2-1.0) Aspartate Amino Transf (AST/SGOT) 40 U/L (15-37) Alanine Aminotransferase (ALT/SGPT) 45 U/L (14-59) Alkaline Phosphatase 74 U/L (46-116) Total Protein 6.5 g/dL (6.4-8.2) Albumin 3.5 g/dL (3.4-5.0) Albumin/Globulin Ratio 1.2 (1.0-1.7) Microbiology 01/31/19 Blood Culture - Preliminary, Resulted NO GROWTH AFTER 1 DAY Medications Current Medications Hydromorphone HCl (Dilaudid) 1 mg PRN Q15MIN PRN IV/SQ PAIN GREATER THAN 3/10 Last administered on 01/31/19at 14:22; Start 01/31/19 at 13:45; Stop 02/01/19 at 07:53; Status DC Sodium Chloride 1,000 ml @ 1,000 mls/hr Q1H IV Last administered on 01/31/19at 13:47; Start 01/31/19 at 13:35; Stop 01/31/19 at 14:34; Status DC Ondansetron HCl (Zofran) 4 mg 1X ONCE IV Last administered on 01/31/19at 13:48; Start 01/31/19 at 13:45; Stop 01/31/19 at 13:46; Status DC Iohexol (Omnipaque 300 Mg/ml) 75 ml 1X ONCE IV Last administered on 01/31/19at 14:50; Start 01/31/19 at 14:45; Stop 01/31/19 at 14:46; Status DC Info (CONTRAST GIVEN -- Rx MONITORING) 1 each PRN DAILY PRN MC SEE COMMENTS; Start 01/31/19 at 14:45; Stop 02/02/19 at 14:44 Ondansetron HCl (Zofran) 4 mg 1X ONCE IV Last administered on 01/31/19at 15:04; Start 01/31/19 at 15:15; Stop 01/31/19 at 15:16; Status DC Ondansetron HCl (Zofran) 4 mg PRN Q8HRS PRN IV NAUSEA/VOMITING; Start 01/31/19 at 16:00; Stop 02/01/19 at 09:29; Status DC Morphine Sulfate (Morphine Sulfate) 4 mg PRN Q2HR PRN IV PAIN Last administered on 02/01/19at 14:13; Start 01/31/19 at 16:00; Stop 02/01/19 at 15:59; Status DC Sodium Chloride 1,000 ml @ 125 mls/hr Q8H IV Last administered on 02/01/19at 08:32; Start 01/31/19 at 16:00; Stop 02/01/19 at 15:59; Status DC Metoclopramide HCl (Reglan Vial) 10 mg 1X ONCE IVP Last administered on 01/31/19 16:01; Start 01/31/19 at 16:00; Stop 01/31/19 at 16:01; Status DC Diphenhydramine HCl (Benadryl) 25 mg 1X ONCE IVP Last administered on 01/31/19 16:03; Start 01/31/19 at 16:00; Stop 01/31/19 at 16:01; Status DC Alprazolam (Xanax) 0.5 mg PRN Q6HRS PRN PO ANXIETY / AGITATION; Start 01/31/19 at 16:30 Folic Acid (Folic Acid) 1 mg DAILY PO ; Start 02/01/19 at 09:00 Levothyroxine Sodium (Synthroid) 112 mcg DAILY07 PO Last administered on 02/02/19 08:55; Start 02/01/19 at 07:00 Losartan Potassium (Cozaar) 50 mg DAILY PO Last administered on 02/02/19 08:55; Start 02/01/19 at 09:00 Ondansetron HCl (Zofran Odt) 4 mg PRN Q48HR PRN PO NAUSEA/VOMITING Last administered on 01/31/19 22:08; Start 01/31/19 at 16:30 Simvastatin (Zocor) 20 mg QHS PO Last administered on 01/31/19 20:49; Start 01/31/19 at 21:00 Non-Formulary Medication (Alendronate Sodium ) 1 tab WEEKLY PO ; Start 02/07/19 at 09:00; Status UNV Duloxetine HCl (Cymbalta) 60 mg DAILY PO Last administered on 02/02/19 08:56; Start 02/01/19 at 09:00 Pantoprazole Sodium (Protonix) 40 mg DAILYAC PO Last administered on 02/01/19 07:49; Start 02/01/19 at 07:30; Stop 02/01/19 at 11:06; Status DC Pregabalin (Lyrica) 300 mg DAILY PO Last administered on 02/02/19 08:55; Start 02/01/19 at 09:00 Trazodone HCl (Desyrel) 50 mg QHS PO Last administered on 01/31/19 20:49; Start 01/31/19 at 21:00 Metronidazole 100 ml @ 100 mls/hr Q8HRS IV Last administered on 02/02/19at 06:00; Start 01/31/19 at 17:00 Ciprofloxacin/ Dextrose 200 ml @ 200 mls/hr BID IV Last administered on 02/02/19at 08:48; Start 01/31/19 at 17:00 Sodium Chloride (Normal Saline Flush) 3 ml QSHIFT PRN IV AFTER MEDS AND BLOOD DRAWS; Start 01/31/19 at 16:45 Sodium Chloride 1,000 ml @ 100 mls/hr Q10H IV Last administered on 02/02/19at 08:47; Start 01/31/19 at 17:00 Ondansetron HCl (Zofran) 4 mg PRN Q4HRS PRN IV NAUSEA/VOMITING Last administered on 02/02/19at 06:07; Start 01/31/19 at 16:45 Zolpidem Tartrate (Ambien) 5 mg PRN QHS PRN PO INSOMNIA; Start 01/31/19 at 16:45 Acetaminophen (Tylenol) 650 mg PRN Q4HRS PRN PO TEMP OVER 100.4F OR MILD PAIN; Start 01/31/19 at 16:45 Al Hydroxide/Mg Hydroxide (Mylanta Plus Xs) 30 ml PRN DAILY PRN PO HEARTBURN / GAS; Start 01/31/19 at 16:45 Clonidine HCl (Catapres) 0.1 mg PRN Q6HRS PRN PO SBP>160 OR DBP>90; Start 01/31/19 at 16:45 Docusate Sodium (Colace) 100 mg PRN BID PRN PO CONSTIPATION; Start 01/31/19 at 16:45 Albuterol/ Ipratropium (Duoneb) 3 ml RTQID NEB Last administered on 02/01/19at 11:11; Start 01/31/19 at 20:00 Guaifenesin (Robitussin) 200 mg PRN Q4HRS PRN PO COUGH; Start 01/31/19 at 16:45 Lorazepam (Ativan) 0.5 mg PRN Q4HRS PRN PO ANXIETY / AGITATION 2ND CHOICE; Start 01/31/19 at 16:45 Hydromorphone HCl (Dilaudid) 1 mg PRN Q2HRS PRN IV SEVERE PAIN 7-10; Start 01/31/19 at 16:45 Enoxaparin Sodium (Lovenox 40mg Syringe) 40 mg DAILY SQ Last administered on 02/01/19at 08:33; Start 02/01/19 at 09:00 Pharmacy Consult (C.diff Med Screen By Rx) 1 each 1X ONCE [facility] ; Start 01/31/19 at 18:00; Stop 01/31/19 at 18:01; Status UNV Pantoprazole Sodium (PROTONIX VIAL for IV PUSH) 40 mg DAILYAC IVP Last administered on 02/02/19at 08:56; Start 02/02/19 at 07:30 Prochlorperazine Edisylate (Compazine) 10 mg PRN Q6HRS PRN IV NAUSEA/VOMITING, 2nd Choice Last administered on 02/02/19at 08:52; Start 02/01/19 at 16:00 Active Scripts Active Ondansetron Odt (Ondansetron) 4 Mg Tab.rapdis 1 Tab PO PRN Q6-8HRS PRN Levofloxacin 750 Mg Tablet 1 Tab PO DAILY Flagyl (Metronidazole) 500 Mg Tablet 1 Tab PO BID 7 Days Levothyroxine Sodium 112 Mcg Tablet 1 Tab PO DAILY Reported Anti-Itch (Hydrocortisone Acetate) 28 Gm Oint...g. 1 Misc TD PRN Q4-6HRS PRN Alendronate Sodium 70 Mg Tablet 1 Tab PO WEEKLY Folic Acid 1 Mg Tablet 1 Tab PO DAILY Trazodone Hcl 150 Mg Tablet 1 Tab PO QHS Simvastatin 20 Mg Tablet 1 Tab PO QHS Ondansetron Odt (Ondansetron) 4 Mg Tab.rapdis 1 Tab PO PRN Q6-8HRS Omeprazole 40 Mg Capsule.dr 1 Cap PO DAILY Losartan Potassium 50 Mg Tablet 50 Mg PO DAILY Soma (Carisoprodol) 350 Mg Tablet 1 Tab PO TID Lyrica (Pregabalin) 300 Mg Capsule 300 Mg PO DAILY Cymbalta (Duloxetine Hcl) 60 Mg Capsule. 60 Mg PO DAILY Xanax (Alprazolam) 1 Mg Tablet Unknown Dose PO PRN Q6HRS PRN Vitals/I & O Vital Sign - Last 24 Hours 02/01/19 02/01/19 02/01/19 02/01/19 15:06 15:17 19:00 20:00 Temp 97.8 97.7 97.8 97.7 Pulse 96 91 Resp 18 18 B/P (MAP) 134/80 (98) 147/99 (115) Pulse Ox 99 99 97 O2 Delivery Room Air Room Air Room Air Room Air 02/01/19 02/02/19 02/02/19 02/02/19 23:00 02:33 06:33 08:55 Temp 97.9 98.5 98.5 97.9 98.5 98.5 Pulse 93 97 93 93 Resp 18 16 18 B/P (MAP) 146/87 (106) 142/71 (94) 157/79 (105) 157/79 Pulse Ox 96 94 97 O2 Delivery Room Air Room Air Room Air Intake and Output 02/01/19 02/01/19 02/02/19 15:00 23:00 07:00 Intake Total 0 ml 0 ml Output Total 350 ml Balance -350 ml 0 ml ZANA GUZMAN MD Feb 02, 2019 11:20
--- NOTE | 2019-02-02 12:45 | NUR ---
SW following for discharge planning. Chart reviewed, discussed with RN, pt is from home with , Iv abx, clear liquid diet. RN advised no SW needs, possible discharge home tomorrow (02/03/19). SW will continue to follow.
[2019-02-02 15:00] VITALS: BP 144/92
[2019-02-02] MEDS: ALPRAZolam 1 MG TABLET PO PRN (18:22)
[2019-02-02 19:00] VITALS: BP 134/83
--- NOTE | 2019-02-02 19:50 | NUR ---
PT HAS BEEN REFUSING TXS ALL DAY Addendum: 02/02/19 at 1950 by CONCHITA VALENZUELA RT Amended: Links added.
[2019-02-02] MEDS: traZODone 50 MG TABLET. PO SCH (21:06)
[2019-02-02] MEDS: SIMVASTATIN 20 MG TABLET PO SCH (21:07)
[2019-02-02 23:00] VITALS: BP 119/64
[2019-02-03 03:00] VITALS: BP 149/87
[2019-02-03] MEDS: ALPRAZolam 1 MG TABLET PO PRN ×3 (03:13→21:07)
[2019-02-03] MEDS: IV NORMAL SALINE 1000ML BAG 1,000 ML IV SCH ×2 (05:15→20:21)
[2019-02-03 07:00] VITALS: BP 143/94
[2019-02-03] MEDS: IPRATRPIUM/ALBUTEROL 0.5/2.5MG 3 ML NEBU. NEB SCH ×4 (07:40→19:48)
[2019-02-03] MEDS: LEVOTHYROXINE 112 MCG TABLET PO SCH (07:40)
[2019-02-03] MEDS: FOLIC ACID 1 MG TABLET. PO SCH (08:26)
[2019-02-03] MEDS: PANTOPRAZOLE IV PUSH 40 MG VIAL. IVP SCH (08:26)
[2019-02-03] MEDS: DULoxetine HCL 30 MG CAPSULE.DR PO SCH (08:27)
[2019-02-03] MEDS: PREGABALIN 75 MG CAPSULE PO SCH (08:28)
[2019-02-03] MEDS: LOSARTAN POTASSIUM 50 MG TABLET. PO SCH (08:29)
[2019-02-03] MEDS: ENOXAPARIN 40 MG/0.4 ML SYRINGE. SQ SCH (08:29)
[2019-02-03] MEDS: CIPROFLOXACIN 400MG PREMIX 200 ML IV SCH ×2 (08:31→21:00)
--- NOTE | 2019-02-03 10:31 | PDOC ---
PROGRESS NOTES Chief Complaint Chief Complaint impression abd pain,acute diverticultis INtra hepatic and extrahepatic duct diltn , recently inc caliber based on last imaging, (NORMAL LFTs)- distant ana yrs ago NArc tolerant Chronci lumbago with past back sxs (3x) Intractable vomiting with nausea HYPERLIPIDEMIA THC ABUSE dehydration History of Present Illness History of Present Illness liquids, clear diet cont iv fluids She feels better but not the best HEr HPI: She had diarrhea x 3 days and 1.5 weeks hx abd pain NO reports diarrhea since admit PLAN: Clears then ADAT PPI and linzess and pain meds 26 min pt exam, chart review, > 50% of time spent with exam, chart review, pt care coordination Vitals Vitals Vital Signs Date Time Temp Pulse Resp B/P (MAP) Pulse Ox O2 Delivery O2 Flow Rate FiO2 02/03/19 08:29 87 143/94 02/03/19 07:40 98 Room Air 02/03/19 07:00 97.9 18 97.9 Physical Exam General: Alert, Oriented X3, Cooperative, mild distress Heart: Regular rate, Normal S1, Normal S2, No murmurs Lungs: Clear Abdomen: Normal bowel sounds, Soft, No tenderness, No masses, Other (tenderness Lower abd ) Extremities: No clubbing, No cyanosis, No edema Skin: No rashes, No breakdown, No significant lesion Labs LABS RECD: 01/31/[address]: GISSELLE PIÑA Jr. DO SOURCE: VOID ENTR: 01/31/[address]: NARINDER MURRAY MD SPDESC: YOEL MATHEW MD NO PCP ORDERED: URINE CULTURE Procedure Result URINE CULTURE Final Final report URINE CULTURE RES 1 Final Comment Culture shows less than 10,000 colony forming units of bacteria per milliliter of urine. This colony count is not generally considered to be clinically significant. Performed at: [facility] - [facility] [address], [place], [place] [id number] Cut Pressman: GUSTAVO Nunez MD, Phone: [phone] Assessment and Plan Assessmemt and Plan Problems Medical Problems: (1) Diverticulitis Status: Acute (2) Intractable vomiting with nausea Status: Acute Comment Review of Relevant I have reviewed the following items geovanny (where applicable) has been applied. Labs Laboratory Tests Test 02/01/19 12:50 02/02/19 03:10 Urine Opiates Screen Pos (NEG) Urine Methadone Screen Neg (NEG) Urine Barbiturates Neg (NEG) Urine Phencyclidine Screen Neg (NEG) Urine Amphetamine/Methamphetamine Neg (NEG) Urine Benzodiazepines Screen Neg (NEG) Urine Cocaine Screen Neg (NEG) Urine Cannabinoids Screen Pos (NEG) Urine Ethyl Alcohol Neg (NEG) White Blood Count 7.2 x10^3/uL (4.0-11.0) Red Blood Count 4.15 x10^6/uL (3.50-5.40) Hemoglobin 12.7 g/dL (12.0-15.5) Hematocrit 37.7 % (36.0-47.0) Mean Corpuscular Volume 91 fL (79-100) Mean Corpuscular Hemoglobin 31 pg (25-35) Mean Corpuscular Hemoglobin Concent 34 g/dL (31-37) Red Cell Distribution Width 14.3 % (11.5-14.5) Platelet Count 302 x10^3/uL (140-400) Neutrophils (%) (Auto) 60 % (31-73) Lymphocytes (%) (Auto) 28 % (24-48) Monocytes (%) (Auto) 8 % (0-9) Eosinophils (%) (Auto) 4 % (0-3) Basophils (%) (Auto) 1 % (0-3) Neutrophils # (Auto) 4.3 x10^3/uL (1.8-7.7) Lymphocytes # (Auto) 2.0 x10^3/uL (1.0-4.8) Monocytes # (Auto) 0.6 x10^3/uL (0.0-1.1) Eosinophils # (Auto) 0.3 x10^3/uL (0.0-0.7) Basophils # (Auto) 0.0 x10^3/uL (0.0-0.2) Sodium Level 141 mmol/L (136-145) Potassium Level 3.5 mmol/L (3.5-5.1) Chloride Level 105 mmol/L (98-107) Carbon Dioxide Level 21 mmol/L (21-32) Anion Gap 15 (6-14) Blood Urea Nitrogen 3 mg/dL (7-20) Creatinine 0.6 mg/dL (0.6-1.0) Estimated GFR (Cockcroft-Gault) 102.7 BUN/Creatinine Ratio 5 (6-20) Glucose Level 83 mg/dL (70-99) Calcium Level 8.6 mg/dL (8.5-10.1) Total Bilirubin 0.4 mg/dL (0.2-1.0) Aspartate Amino Transf (AST/SGOT) 40 U/L (15-37) Alanine Aminotransferase (ALT/SGPT) 45 U/L (14-59) Alkaline Phosphatase 74 U/L (46-116) Total Protein 6.5 g/dL (6.4-8.2) Albumin 3.5 g/dL (3.4-5.0) Albumin/Globulin Ratio 1.2 (1.0-1.7) Microbiology 01/31/19 Urine Culture - Final, Complete 01/31/19 Urine Culture Result 1 (CICI) - Final, Complete 01/31/19 Blood Culture - Preliminary, Resulted NO GROWTH AFTER 2 DAYS Medications Current Medications Hydromorphone HCl (Dilaudid) 1 mg PRN Q15MIN PRN IV/SQ PAIN GREATER THAN 3/10 Last administered on 01/31/19at 14:22; Start 01/31/19 at 13:45; Stop 02/01/19 at 07:53; Status DC Sodium Chloride 1,000 ml @ 1,000 mls/hr Q1H IV Last administered on 01/31/19at 13:47; Start 01/31/19 at 13:35; Stop 01/31/19 at 14:34; Status DC Ondansetron HCl (Zofran) 4 mg 1X ONCE IV Last administered on 01/31/19at 13:48; Start 01/31/19 at 13:45; Stop 01/31/19 at 13:46; Status DC Iohexol (Omnipaque 300 Mg/ml) 75 ml 1X ONCE IV Last administered on 01/31/19at 14:50; Start 01/31/19 at 14:45; Stop 01/31/19 at 14:46; Status DC Info (CONTRAST GIVEN -- Rx MONITORING) 1 each PRN DAILY PRN MC SEE COMMENTS; Start 01/31/19 at 14:45; Stop 02/02/19 at 14:44; Status DC Ondansetron HCl (Zofran) 4 mg 1X ONCE IV Last administered on 01/31/19at 15:04; Start 01/31/19 at 15:15; Stop 01/31/19 at 15:16; Status DC Ondansetron HCl (Zofran) 4 mg PRN Q8HRS PRN IV NAUSEA/VOMITING; Start 01/31/19 at 16:00; Stop 02/01/19 at 09:29; Status DC Morphine Sulfate (Morphine Sulfate) 4 mg PRN Q2HR PRN IV PAIN Last administered on 02/01/19at 14:13; Start 01/31/19 at 16:00; Stop 02/01/19 at 15:59; Status DC Sodium Chloride 1,000 ml @ 125 mls/hr Q8H IV Last administered on 02/01/19at 08:32; Start 01/31/19 at 16:00; Stop 02/01/19 at 15:59; Status DC Metoclopramide HCl (Reglan Vial) 10 mg 1X ONCE IVP Last administered on 01/31/19at 16:01; Start 01/31/19 at 16:00; Stop 01/31/19 at 16:01; Status DC Diphenhydramine HCl (Benadryl) 25 mg 1X ONCE IVP Last administered on 01/31/19at 16:03; Start 01/31/19 at 16:00; Stop 01/31/19 at 16:01; Status DC Alprazolam (Xanax) 0.5 mg PRN Q6HRS PRN PO ANXIETY / AGITATION Last administered on 02/03/19 03:13; Start 01/31/19 at 16:30 Folic Acid (Folic Acid) 1 mg DAILY PO Last administered on 02/03/19 08:26; Start 02/01/19 at 09:00 Levothyroxine Sodium (Synthroid) 112 mcg DAILY07 PO Last administered on 02/03/19 07:40; Start 02/01/19 at 07:00 Losartan Potassium (Cozaar) 50 mg DAILY PO Last administered on 02/03/19 08:29; Start 02/01/19 at 09:00 Ondansetron HCl (Zofran Odt) 4 mg PRN Q48HR PRN PO NAUSEA/VOMITING Last administered on 01/31/19 22:08; Start 01/31/19 at 16:30 Simvastatin (Zocor) 20 mg QHS PO Last administered on 02/02/19 21:07; Start 01/31/19 at 21:00 Non-Formulary Medication (Alendronate Sodium ) 1 tab WEEKLY PO ; Start 02/07/19 at 09:00; Status UNV Duloxetine HCl (Cymbalta) 60 mg DAILY PO Last administered on 02/03/19 08:27; Start 02/01/19 at 09:00 Pantoprazole Sodium (Protonix) 40 mg DAILYAC PO Last administered on 02/01/19 07:49; Start 02/01/19 at 07:30; Stop 02/01/19 at 11:06; Status DC Pregabalin (Lyrica) 300 mg DAILY PO Last administered on 02/03/19 08:28; Start 02/01/19 at 09:00 Trazodone HCl (Desyrel) 50 mg QHS PO Last administered on 02/02/19 21:06; Start 01/31/19 at 21:00 Metronidazole 100 ml @ 100 mls/hr Q8HRS IV Last administered on 02/03/19 05:15; Start 01/31/19 at 17:00 Ciprofloxacin/ Dextrose 200 ml @ 200 mls/hr BID IV Last administered on 02/03/19 08:31; Start 01/31/19 at 17:00 Sodium Chloride (Normal Saline Flush) 3 ml QSHIFT PRN IV AFTER MEDS AND BLOOD DRAWS; Start 01/31/19 at 16:45 Sodium Chloride 1,000 ml @ 100 mls/hr Q10H IV Last administered on 02/03/19at 05:15; Start 01/31/19 at 17:00 Ondansetron HCl (Zofran) 4 mg PRN Q4HRS PRN IV NAUSEA/VOMITING Last administered on 02/02/19at 06:07; Start 01/31/19 at 16:45 Zolpidem Tartrate (Ambien) 5 mg PRN QHS PRN PO INSOMNIA; Start 01/31/19 at 16:45 Acetaminophen (Tylenol) 650 mg PRN Q4HRS PRN PO TEMP OVER 100.4F OR MILD PAIN; Start 01/31/19 at 16:45 Al Hydroxide/Mg Hydroxide (Mylanta Plus Xs) 30 ml PRN DAILY PRN PO HEARTBURN / GAS; Start 01/31/19 at 16:45 Clonidine HCl (Catapres) 0.1 mg PRN Q6HRS PRN PO SBP>160 OR DBP>90; Start 01/31/19 at 16:45 Docusate Sodium (Colace) 100 mg PRN BID PRN PO CONSTIPATION; Start 01/31/19 at 16:45 Albuterol/ Ipratropium (Duoneb) 3 ml RTQID NEB Last administered on 02/01/19at 11:11; Start 01/31/19 at 20:00 Guaifenesin (Robitussin) 200 mg PRN Q4HRS PRN PO COUGH; Start 01/31/19 at 16:45 Lorazepam (Ativan) 0.5 mg PRN Q4HRS PRN PO ANXIETY / AGITATION 2ND CHOICE; Start 01/31/19 at 16:45 Hydromorphone HCl (Dilaudid) 1 mg PRN Q2HRS PRN IV SEVERE PAIN 7-10; Start 01/31/19 at 16:45 Enoxaparin Sodium (Lovenox 40mg Syringe) 40 mg DAILY SQ Last administered on 02/01/19at 08:33; Start 02/01/19 at 09:00 Pharmacy Consult (C.diff Med Screen By Rx) 1 each 1X ONCE MC ; Start 01/31/19 at 18:00; Stop 01/31/19 at 18:01; Status UNV Pantoprazole Sodium (PROTONIX VIAL for IV PUSH) 40 mg DAILYAC IVP Last administered on 02/03/19at 08:26; Start 02/02/19 at 07:30 Prochlorperazine Edisylate (Compazine) 10 mg PRN Q6HRS PRN IV NAUSEA/VOMITING, 2nd Choice Last administered on 02/02/19at 08:52; Start 02/01/19 at 16:00 Active Scripts Active Ondansetron Odt (Ondansetron) 4 Mg Tab.rapdis 1 Tab PO PRN Q6-8HRS PRN Levofloxacin 750 Mg Tablet 1 Tab PO DAILY Flagyl (Metronidazole) 500 Mg Tablet 1 Tab PO BID 7 Days Levothyroxine Sodium 112 Mcg Tablet 1 Tab PO DAILY Reported Anti-Itch (Hydrocortisone Acetate) 28 Gm Oint...g. 1 Misc TD PRN Q4-6HRS PRN Alendronate Sodium 70 Mg Tablet 1 Tab PO WEEKLY Folic Acid 1 Mg Tablet 1 Tab PO DAILY Trazodone Hcl 150 Mg Tablet 1 Tab PO QHS Simvastatin 20 Mg Tablet 1 Tab PO QHS Ondansetron Odt (Ondansetron) 4 Mg Tab.rapdis 1 Tab PO PRN Q6-8HRS Omeprazole 40 Mg Capsule. 1 Cap PO DAILY Losartan Potassium 50 Mg Tablet 50 Mg PO DAILY Soma (Carisoprodol) 350 Mg Tablet 1 Tab PO TID Lyrica (Pregabalin) 300 Mg Capsule 300 Mg PO DAILY Cymbalta (Duloxetine Hcl) 60 Mg Capsule. 60 Mg PO DAILY Xanax (Alprazolam) 1 Mg Tablet Unknown Dose PO PRN Q6HRS PRN Vitals/I & O Vital Sign - Last 24 Hours 02/02/19 02/02/19 02/02/19 02/02/19 11:00 15:00 19:00 20:20 Temp 98.8 98.7 98.4 98.8 98.7 98.4 Pulse 101 88 97 Resp 18 18 18 B/P (MAP) 138/70 (92) 144/92 (109) 134/83 (100) Pulse Ox 93 95 96 O2 Delivery Room Air Room Air Room Air 02/02/19 02/03/19 02/03/19 02/03/19 23:00 03:00 07:00 07:40 Temp 97.7 97.9 97.9 97.7 97.9 97.9 Pulse 87 82 87 Resp 18 18 18 B/P (MAP) 119/64 (82) 149/87 (107) 143/94 (110) Pulse Ox 95 96 95 98 O2 Delivery Room Air Room Air Room Air Room Air 02/03/19 08:29 Pulse 87 B/P (MAP) 143/94 Intake and Output 02/02/19 02/02/19 02/03/19 15:00 23:00 07:00 Intake Total 1320 ml 1725 ml Balance 1320 ml 1725 ml YOEL MATHEW MD Feb 03, 2019 10:31
[2019-02-03 10:49] VITALS: BP 138/2
--- NOTE | 2019-02-03 11:24 | PDOC ---
Subjective: Subjective: Feels better - tolerating diet, stooling normally, denies pain. Objective: Objective: Tolerating full liquids per nurse. Vital Signs: Vital Signs Date Time Temp Pulse Resp B/P (MAP) Pulse Ox O2 Delivery O2 Flow Rate FiO2 02/03/19 10:49 97.9 85 18 138/2 (47) 95 Room Air 97.9 PE: GEN: NAD - up in chair sponge-bathing LUNGS: room air HEART: RRR NEURO/PSYCH: A & O 3 A/P: N/v - resolved ?diverticulitis - LLQ pain better +marijuana -- ADAT, DC per primary - need PPI and Linzess Rx. TAO OLIAVRES Feb 03, 2019 11:24
--- NOTE | 2019-02-03 12:33 | NUR ---
SW following for discharge planning. Pt on full liquid diet, IV cipro. RN advised no SW needs at this time. SW will continue to follow.
[2019-02-03 15:00] VITALS: BP 140/90
[2019-02-03] MEDS ORDERED: ONDANSETRON ODT 4 MG TAB.RAPDIS. PO PRN (17:00)
[2019-02-03 19:00] VITALS: BP 118/79
[2019-02-03] MEDS: traZODone 50 MG TABLET. PO SCH (20:59)
[2019-02-03] MEDS: LACTOBACILLUS RHAMNOSUS GG 1 CAPSULE. PO SCH (20:59)
[2019-02-03] MEDS: SIMVASTATIN 20 MG TABLET PO SCH (20:59)
[2019-02-03 23:00] VITALS: BP 123/58
[2019-02-04 03:00] VITALS: BP 106/64
[2019-02-04] MEDS: LEVOTHYROXINE 112 MCG TABLET PO SCH (05:21)
[2019-02-04] MEDS: IV NORMAL SALINE 1000ML BAG 1,000 ML IV SCH (05:22)
[2019-02-04 07:00] VITALS: BP 108/73
[2019-02-04] MEDS ORDERED: PANTOPRAZOLE 40 MG TABLET.DR. PO SCH (07:30)
[2019-02-04] MEDS: IPRATRPIUM/ALBUTEROL 0.5/2.5MG 3 ML NEBU. NEB SCH ×3 (07:46→15:27)
[2019-02-04] MEDS: FOLIC ACID 1 MG TABLET. PO SCH (08:43)
[2019-02-04] MEDS: LOSARTAN POTASSIUM 50 MG TABLET. PO SCH (08:43)
[2019-02-04] MEDS: DULoxetine HCL 30 MG CAPSULE.DR PO SCH (08:44)
[2019-02-04] MEDS: LACTOBACILLUS RHAMNOSUS GG 1 CAPSULE. PO SCH (08:45)
[2019-02-04] MEDS: PREGABALIN 75 MG CAPSULE PO SCH (08:45)
[2019-02-04] MEDS: ENOXAPARIN 40 MG/0.4 ML SYRINGE. SQ SCH (08:45)
[2019-02-04] MEDS: CIPROFLOXACIN 400MG PREMIX 200 ML IV SCH (08:46)
[2019-02-04] MEDS: ALPRAZolam 1 MG TABLET PO PRN (08:59)
--- NOTE | 2019-02-04 10:43 | PDOC ---
PROGRESS NOTES Chief Complaint Chief Complaint DISCHARGE DX abd pain,acute diverticultis INtra hepatic and extrahepatic duct diltn , recently inc caliber based on last imaging, (NORMAL LFTs)- distant ana yrs ago NArc tolerant Chronci lumbago with past back sxs (3x) Intractable vomiting with nausea HYPERLIPIDEMIA THC ABUSE dehydration D/C IV ANTIBIOTICS History of Present Illness History of Present Illness cont iv fluids 10-30 She feels better HEr HPI: She had diarrhea x 3 days and 1.5 weeks hx abd pain NO reports diarrhea since admit PLAN: ADAT PPI and linzess and pain meds 26 min pt exam, chart review, D/C PLANNING > 50% of time spent with exam, chart review, pt care coordination Vitals Vitals Vital Signs Date Time Temp Pulse Resp B/P (MAP) Pulse Ox O2 Delivery O2 Flow Rate FiO2 02/04/19 08:43 80 108/73 02/04/19 07:00 98.2 17 96 Room Air 98.2 Physical Exam General: Alert, Oriented X3, Cooperative, mild distress Heart: Regular rate, Normal S1, Normal S2, No murmurs Lungs: Clear Abdomen: Normal bowel sounds, Soft, No tenderness, No masses, Other (tenderness Lower abd ) Extremities: No clubbing, No cyanosis, No edema Skin: No rashes, No breakdown, No significant lesion Labs LABS RECD: 01/31/19-[address]: YOEL MATHEW MD SOURCE: BLOOD ENTR: 01/31/[address]: NARINDER MURRAY MD SPDESC: NO PCP ORDERED: BCULT Procedure Result BLOOD CULTURE Preliminary NO GROWTH AFTER 3 DAYS ------ ------ Assessment and Plan Assessmemt and Plan Problems Medical Problems: (1) Diverticulitis Status: Acute (2) Intractable vomiting with nausea Status: Acute Comment Review of Relevant I have reviewed the following items geovanny (where applicable) has been applied. Labs Microbiology 01/31/19 Urine Culture - Final, Complete 01/31/19 Urine Culture Result 1 (CICI) - Final, Complete 01/31/19 Blood Culture - Preliminary, Resulted NO GROWTH AFTER 3 DAYS Medications Current Medications Hydromorphone HCl (Dilaudid) 1 mg PRN Q15MIN PRN IV/SQ PAIN GREATER THAN 3/10 Last administered on 01/31/19at 14:22; Start 01/31/19 at 13:45; Stop 02/01/19 at 07:53; Status DC Sodium Chloride 1,000 ml @ 1,000 mls/hr Q1H IV Last administered on 01/31/19at 13:47; Start 01/31/19 at 13:35; Stop 01/31/19 at 14:34; Status DC Ondansetron HCl (Zofran) 4 mg 1X ONCE IV Last administered on 01/31/19at 13:48; Start 01/31/19 at 13:45; Stop 01/31/19 at 13:46; Status DC Iohexol (Omnipaque 300 Mg/ml) 75 ml 1X ONCE IV Last administered on 01/31/19at 14:50; Start 01/31/19 at 14:45; Stop 01/31/19 at 14:46; Status DC Info (CONTRAST GIVEN -- Rx MONITORING) 1 each PRN DAILY PRN MC SEE COMMENTS; Start 01/31/19 at 14:45; Stop 02/02/19 at 14:44; Status DC Ondansetron HCl (Zofran) 4 mg 1X ONCE IV Last administered on 01/31/19at 15:04; Start 01/31/19 at 15:15; Stop 01/31/19 at 15:16; Status DC Ondansetron HCl (Zofran) 4 mg PRN Q8HRS PRN IV NAUSEA/VOMITING; Start 01/31/19 at 16:00; Stop 02/01/19 at 09:29; Status DC Morphine Sulfate (Morphine Sulfate) 4 mg PRN Q2HR PRN IV PAIN Last administered on 02/01/19 14:13; Start 01/31/19 at 16:00; Stop 02/01/19 at 15:59; Status DC Sodium Chloride 1,000 ml @ 125 mls/hr Q8H IV Last administered on 02/01/19 08:32; Start 01/31/19 at 16:00; Stop 02/01/19 at 15:59; Status DC Metoclopramide HCl (Reglan Vial) 10 mg 1X ONCE IVP Last administered on 01/31/19at 16:01; Start 01/31/19 at 16:00; Stop 01/31/19 at 16:01; Status DC Diphenhydramine HCl (Benadryl) 25 mg 1X ONCE IVP Last administered on 01/31/19at 16:03; Start 01/31/19 at 16:00; Stop 01/31/19 at 16:01; Status DC Alprazolam (Xanax) 0.5 mg PRN Q6HRS PRN PO ANXIETY / AGITATION Last administered on 02/04/19 08:59; Start 01/31/19 at 16:30 Folic Acid (Folic Acid) 1 mg DAILY PO Last administered on 02/04/19 08:43; Start 02/01/19 at 09:00 Levothyroxine Sodium (Synthroid) 112 mcg DAILY07 PO Last administered on 02/04/19 05:21; Start 02/01/19 at 07:00 Losartan Potassium (Cozaar) 50 mg DAILY PO Last administered on 02/04/19 08:43; Start 02/01/19 at 09:00 Ondansetron HCl (Zofran Odt) 4 mg PRN Q48HR PRN PO NAUSEA/VOMITING Last administered on 01/31/19 22:08; Start 01/31/19 at 16:30; Stop 02/03/19 at 16:46; Status DC Simvastatin (Zocor) 20 mg QHS PO Last administered on 02/03/19 20:59; Start 01/31/19 at 21:00 Non-Formulary Medication (Alendronate Sodium ) 1 tab WEEKLY PO ; Start 02/07/19 at 09:00; Status UNV Duloxetine HCl (Cymbalta) 60 mg DAILY PO Last administered on 02/04/19 08:44; Start 02/01/19 at 09:00 Pantoprazole Sodium (Protonix) 40 mg DAILYAC PO Last administered on 02/01/19 07:49; Start 02/01/19 at 07:30; Stop 02/01/19 at 11:06; Status DC Pregabalin (Lyrica) 300 mg DAILY PO Last administered on 02/04/19 08:45; Start 02/01/19 at 09:00 Trazodone HCl (Desyrel) 50 mg QHS PO Last administered on 02/03/19 20:59; Start 01/31/19 at 21:00 Metronidazole 100 ml @ 100 mls/hr Q8HRS IV Last administered on 02/04/19 05:21; Start 01/31/19 at 17:00 Ciprofloxacin/ Dextrose 200 ml @ 200 mls/hr BID IV Last administered on 02/04/19 08:46; Start 01/31/19 at 17:00 Sodium Chloride (Normal Saline Flush) 3 ml QSHIFT PRN IV AFTER MEDS AND BLOOD DRAWS; Start 01/31/19 at 16:45 Sodium Chloride 1,000 ml @ 100 mls/hr Q10H IV Last administered on 02/04/19 05:22; Start 01/31/19 at 17:00 Ondansetron HCl (Zofran) 4 mg PRN Q4HRS PRN IV NAUSEA/VOMITING Last administered on 02/02/19 06:07; Start 01/31/19 at 16:45 Zolpidem Tartrate (Ambien) 5 mg PRN QHS PRN PO INSOMNIA Last administered on 02/03/19 21:08; Start 01/31/19 at 16:45 Acetaminophen (Tylenol) 650 mg PRN Q4HRS PRN PO TEMP OVER 100.4F OR MILD PAIN; Start 01/31/19 at 16:45 Al Hydroxide/Mg Hydroxide (Mylanta Plus Xs) 30 ml PRN DAILY PRN PO HEARTBURN / GAS; Start 01/31/19 at 16:45 Clonidine HCl (Catapres) 0.1 mg PRN Q6HRS PRN PO SBP>160 OR DBP>90; Start 01/31/19 at 16:45 Docusate Sodium (Colace) 100 mg PRN BID PRN PO CONSTIPATION; Start 01/31/19 at 16:45 Albuterol/ Ipratropium (Duoneb) 3 ml RTQID NEB Last administered on 02/01/19at 11:11; Start 01/31/19 at 20:00 Guaifenesin (Robitussin) 200 mg PRN Q4HRS PRN PO COUGH; Start 01/31/19 at 16:45 Lorazepam (Ativan) 0.5 mg PRN Q4HRS PRN PO ANXIETY / AGITATION 2ND CHOICE; Start 01/31/19 at 16:45 Hydromorphone HCl (Dilaudid) 1 mg PRN Q2HRS PRN IV SEVERE PAIN 7-10; Start 01/31/19 at 16:45 Enoxaparin Sodium (Lovenox 40mg Syringe) 40 mg DAILY SQ Last administered on 02/01/19at 08:33; Start 02/01/19 at 09:00 Pharmacy Consult (C.diff Med Screen By Rx) 1 each 1X ONCE MC ; Start 01/31/19 at 18:00; Stop 01/31/19 at 18:01; Status UNV Pantoprazole Sodium (PROTONIX VIAL for IV PUSH) 40 mg DAILYAC IVP Last administered on 02/03/19at 08:26; Start 02/02/19 at 07:30; Stop 02/03/19 at 11:24; Status DC Prochlorperazine Edisylate (Compazine) 10 mg PRN Q6HRS PRN IV NAUSEA/VOMITING, 2nd Choice Last administered on 02/02/19at 08:52; Start 02/01/19 at 16:00 Pantoprazole Sodium (Protonix) 40 mg DAILYAC PO Last administered on 02/04/19at 06:36; Start 02/04/19 at 07:30 Lactobacillus Rhamnosus (Culturelle) 1 cap BID PO Last administered on 02/04/19at 08:45; Start 02/03/19 at 21:00 Ondansetron HCl (Zofran Odt) 4 mg PRN Q8HRS PRN PO NAUSEA/VOMITING; Start 02/03/19 at 17:00 Active Scripts Active Ondansetron Odt (Ondansetron) 4 Mg Tab.rapdis 1 Tab PO PRN Q6-8HRS PRN Levofloxacin 750 Mg Tablet 1 Tab PO DAILY Flagyl (Metronidazole) 500 Mg Tablet 1 Tab PO BID 7 Days Levothyroxine Sodium 112 Mcg Tablet 1 Tab PO DAILY Reported Anti-Itch (Hydrocortisone Acetate) 28 Gm Oint...g. 1 Misc TD PRN Q4-6HRS PRN Alendronate Sodium 70 Mg Tablet 1 Tab PO WEEKLY Folic Acid 1 Mg Tablet 1 Tab PO DAILY Trazodone Hcl 150 Mg Tablet 1 Tab PO QHS Simvastatin 20 Mg Tablet 1 Tab PO QHS Ondansetron Odt (Ondansetron) 4 Mg Tab.rapdis 1 Tab PO PRN Q6-8HRS Omeprazole 40 Mg Capsule.dr 1 Cap PO DAILY Losartan Potassium 50 Mg Tablet 50 Mg PO DAILY Soma (Carisoprodol) 350 Mg Tablet 1 Tab PO TID Lyrica (Pregabalin) 300 Mg Capsule 300 Mg PO DAILY Cymbalta (Duloxetine Hcl) 60 Mg Capsule.dr 60 Mg PO DAILY Xanax (Alprazolam) 1 Mg Tablet Unknown Dose PO PRN Q6HRS PRN Vitals/I & O Vital Sign - Last 24 Hours 02/03/19 02/03/19 02/03/19 02/03/19 10:49 15:00 19:00 20:00 Temp 97.9 97.9 99.3 97.9 97.9 99.3 Pulse 85 85 91 Resp 18 18 18 B/P (MAP) 138/2 (47) 140/90 (107) 118/79 (92) Pulse Ox 95 95 94 O2 Delivery Room Air Room Air Room Air Room Air 02/03/19 02/04/19 02/04/19 02/04/19 23:00 03:00 07:00 08:43 Temp 97.3 98.0 98.2 97.3 98.0 98.2 Pulse 83 79 80 80 Resp 18 18 17 B/P (MAP) 123/58 (79) 106/64 (78) 108/73 (85) 108/73 Pulse Ox 96 95 96 O2 Delivery Room Air Room Air Room Air Intake and Output 02/03/19 02/03/19 02/04/19 15:00 23:00 07:00 Intake Total 800 ml 640 ml 240 ml Balance 800 ml 640 ml 240 ml YOEL MATHEW MD Feb 04, 2019 10:43
[2019-02-04 11:00] VITALS: BP 138/99
--- NOTE | 2019-02-04 11:07 | NUR ---
SW following for discharge planning. Chart reviewed, discussed with RN. Pt is from home with . RN advised no SW needs at this time. SW will continue to follow.
--- NOTE | 2019-02-04 11:34 | PDOC ---
Subjective: Subjective: Doesn't know why she's still here, maybe her blood pressure was high. No n/v, abd pain, or diarrhea. Wasn't hungry this morning. Objective: Vital Signs: Vital Signs Date Time Temp Pulse Resp B/P (MAP) Pulse Ox O2 Delivery O2 Flow Rate FiO2 02/04/19 11:00 98.0 85 18 138/99 (112) 95 Room Air 98.0 Labs: BLOOD CULTURE Preliminary NO GROWTH AFTER 3 DAYS PE: GEN: resting in recliner LUNGS: CTAB HEART: RRR ABD: S/ND/NT NEURO/PSYCH: A & O 3 A/P: N/v - resolved -- Stable/improved from GI point of view, DC per primary w/ PPI. Probably could stop antibiotics from GI standpoint. TAO OLIVARES Feb 04, 2019 11:34
--- NOTE | 2019-02-04 11:58 | PDOC3 ---
Discharge Summary Date of Admission: Jan 31, 2019 Date of Discharge: Feb 04, 2019 Follow-Up: 3-5 days Admitting Diagnosis comment: DISCHARGE DX abd pain,acute diverticultis INtra hepatic and extrahepatic duct diltn , recently inc caliber based on last imaging, (NORMAL LFTs)- distant ana yrs ago NArc tolerant Chronci lumbago with past back sxs (3x) Intractable vomiting with nausea, RESOLVED HYPERLIPIDEMIA THC ABUSE dehydration, IMPROVED D/C IV ANTIBIOTICS History of Present Illness History of Present Illness cont iv fluids 10-30 She feels better HEr HPI: She had diarrhea x 3 days and 1.5 weeks hx abd pain NO reports diarrhea since admit PLAN: ADAT PPI and linzess and pain meds 26 min pt exam, chart review, D/C PLANNING > 50% of time spent with exam, chart review, pt care coordination Vitals Vitals Vital Signs Date Time Temp Pulse Resp B/P (MAP) Pulse Ox O2 Delivery O2 Flow Rate FiO2 02/04/19 08:43 80 108/73 02/04/19 07:00 98.2 17 96 Room Air 98.2 Physical Exam General: Alert, Oriented X3, Cooperative, mild distress Heart: Regular rate, Normal S1, Normal S2, No murmurs Lungs: Clear Abdomen: Normal bowel sounds, Soft, No tenderness, No masses, Other (tenderness Lower abd ) Extremities: No clubbing, No cyanosis, No edema Skin: No rashes, No breakdown, No significant lesion Labs LABS RECD: 01/31/[address]: YOEL MATHEW MD SOURCE: BLOOD ENTR: 01/31/19 [facility] DR: NARINDER MURRAY MD SPDESC: NO PCP ORDERED: BCULT Procedure Result FINAL DIAGNOSIS Problems Medical Problems: (1) Diverticulitis Status: Acute (2) Intractable vomiting with nausea Status: Acute Brief Hospital Course Ms. Black is a 59 old [sex] who presented with [ABDOMINAL PAIN ] CONDITION AT DISCHARGE: Improved Discharge Medications Current Medications Hydromorphone HCl (Dilaudid) 1 mg PRN Q15MIN PRN IV/SQ PAIN GREATER THAN 3/10 Last administered on 01/31/19at 14:22; Start 01/31/19 at 13:45; Stop 02/01/19 at 07:53; Status DC Sodium Chloride 1,000 ml @ 1,000 mls/hr Q1H IV Last administered on 01/31/19at 13:47; Start 01/31/19 at 13:35; Stop 01/31/19 at 14:34; Status DC Ondansetron HCl (Zofran) 4 mg 1X ONCE IV Last administered on 01/31/19at 13:48; Start 01/31/19 at 13:45; Stop 01/31/19 at 13:46; Status DC Iohexol (Omnipaque 300 Mg/ml) 75 ml 1X ONCE IV Last administered on 01/31/19at 14:50; Start 01/31/19 at 14:45; Stop 01/31/19 at 14:46; Status DC Info (CONTRAST GIVEN -- Rx MONITORING) 1 each PRN DAILY PRN MC SEE COMMENTS; Start 01/31/19 at 14:45; Stop 02/02/19 at 14:44; Status DC Ondansetron HCl (Zofran) 4 mg 1X ONCE IV Last administered on 01/31/19at 15 :04; Start 01/31/19 at 15:15; Stop 01/31/19 at 15:16; Status DC Ondansetron HCl (Zofran) 4 mg PRN Q8HRS PRN IV NAUSEA/VOMITING; Start 01/31/19 at 16:00; Stop 02/01/19 at 09:29; Status DC Morphine Sulfate (Morphine Sulfate) 4 mg PRN Q2HR PRN IV PAIN Last administered on 02/01/19 14:13; Start 01/31/19 at 16:00; Stop 02/01/19 at 15:59; Status DC Sodium Chloride 1,000 ml @ 125 mls/hr Q8H IV Last administered on 02/01/19 08:32; Start 01/31/19 at 16:00; Stop 02/01/19 at 15:59; Status DC Metoclopramide HCl (Reglan Vial) 10 mg 1X ONCE IVP Last administered on 01/31/19 16:01; Start 01/31/19 at 16:00; Stop 01/31/19 at 16:01; Status DC Diphenhydramine HCl (Benadryl) 25 mg 1X ONCE IVP Last administered on 01/31/19 16:03; Start 01/31/19 at 16:00; Stop 01/31/19 at 16:01; Status DC Alprazolam (Xanax) 0.5 mg PRN Q6HRS PRN PO ANXIETY / AGITATION 1ST CHOICE Last administered on 02/04/19 08:59; Start 01/31/19 at 16:30; Stop 02/04/19 at 11:54; Status DC Folic Acid (Folic Acid) 1 mg DAILY PO Last administered on 02/04/19 08:43; Start 02/01/19 at 09:00 Levothyroxine Sodium (Synthroid) 112 mcg DAILY07 PO Last administered on 02/04/19 05:21; Start 02/01/19 at 07:00 Losartan Potassium (Cozaar) 50 mg DAILY PO Last administered on 02/04/19 08:43; Start 02/01/19 at 09:00 Ondansetron HCl (Zofran Odt) 4 mg PRN Q48HR PRN PO NAUSEA/VOMITING Last administered on 01/31/19 22:08; Start 01/31/19 at 16:30; Stop 02/03/19 at 16:46; Status DC Simvastatin (Zocor) 20 mg QHS PO Last administered on 02/03/19 20:59; Start 01/31/19 at 21:00 Non-Formulary Medication (Alendronate Sodium ) 1 tab WEEKLY PO ; Start 02/07/19 at 09:00; Status UNV Duloxetine HCl (Cymbalta) 60 mg DAILY PO Last administered on 02/04/19 08:44; Start 02/01/19 at 09:00 Pantoprazole Sodium (Protonix) 40 mg DAILYAC PO Last administered on 02/01/19 07:49; Start 02/01/19 at 07:30; Stop 02/01/19 at 11:06; Status DC Pregabalin (Lyrica) 300 mg DAILY PO Last administered on 02/04/19 08:45; Start 02/01/19 at 09:00 Trazodone HCl (Desyrel) 50 mg QHS PO Last administered on 02/03/19 20:59; Start 01/31/19 at 21:00 Metronidazole 100 ml @ 100 mls/hr Q8HRS IV Last administered on 02/04/19 05:21; Start 01/31/19 at 17:00; Stop 02/04/19 at 11:54; Status DC Ciprofloxacin/ Dextrose 200 ml @ 200 mls/hr BID IV Last administered on 02/04/19 08:46; Start 01/31/19 at 17:00; Stop 02/04/19 at 11:54; Status DC Sodium Chloride (Normal Saline Flush) 3 ml QSHIFT PRN IV AFTER MEDS AND BLOOD DRAWS; Start 01/31/19 at 16:45 Sodium Chloride 1,000 ml @ 100 mls/hr Q10H IV Last administered on 02/04/19 05:22; Start 01/31/19 at 17:00 Ondansetron HCl (Zofran) 4 mg PRN Q4HRS PRN IV NAUSEA/VOMITING 1ST CHOICE Last administered on 02/02/19 06:07; Start 01/31/19 at 16:45 Zolpidem Tartrate (Ambien) 5 mg PRN QHS PRN PO INSOMNIA Last administered on 02/03/19 21:08; Start 01/31/19 at 16:45 Acetaminophen (Tylenol) 650 mg PRN Q4HRS PRN PO TEMP OVER 100.4F OR MILD PAIN; Start 01/31/19 at 16:45 Al Hydroxide/Mg Hydroxide (Mylanta Plus Xs) 30 ml PRN DAILY PRN PO HEARTBURN / GAS; Start 01/31/19 at 16:45 Clonidine HCl (Catapres) 0.1 mg PRN Q6HRS PRN PO SBP>160 OR DBP>90; Start 01/31/19 at 16:45 Docusate Sodium (Colace) 100 mg PRN BID PRN PO CONSTIPATION; Start 01/31/19 at 16:45 Albuterol/ Ipratropium (Duoneb) 3 ml RTQID NEB Last administered on 02/01/19at 11:11; Start 01/31/19 at 20:00 Guaifenesin (Robitussin) 200 mg PRN Q4HRS PRN PO COUGH; Start 01/31/19 at 16:45 Lorazepam (Ativan) 0.5 mg PRN Q4HRS PRN PO ANXIETY / AGITATION 2ND CHOICE; Start 01/31/19 at 16:45 Hydromorphone HCl (Dilaudid) 1 mg PRN Q2HRS PRN IV SEVERE PAIN 7-10; Start 01/31/19 at 16:45; Stop 02/04/19 at 11:54; Status DC Enoxaparin Sodium (Lovenox 40mg Syringe) 40 mg DAILY SQ Last administered on 02/01/19at 08:33; Start 02/01/19 at 09:00 Pharmacy Consult (C.diff Med Screen By Rx) 1 each 1X ONCE MC ; Start 01/31/19 at 18:00; Stop 01/31/19 at 18:01; Status UNV Pantoprazole Sodium (PROTONIX VIAL for IV PUSH) 40 mg DAILYAC IVP Last administered on 02/03/19at 08:26; Start 02/02/19 at 07:30; Stop 02/03/19 at 11:24; Status DC Prochlorperazine Edisylate (Compazine) 10 mg PRN Q6HRS PRN IV NAUSEA/VOMITING, 2nd Choice Last administered on 02/02/19at 08:52; Start 02/01/19 at 16:00 Pantoprazole Sodium (Protonix) 40 mg DAILYAC PO Last administered on 02/04/19at 06:36; Start 02/04/19 at 07:30 Lactobacillus Rhamnosus (Culturelle) 1 cap BID PO Last administered on 02/04/19at 08:45; Start 02/03/19 at 21:00 Ondansetron HCl (Zofran Odt) 4 mg PRN Q8HRS PRN PO NAUSEA/VOMITING; Start 02/03/19 at 17:00 Active Scripts Active Ondansetron Odt (Ondansetron) 4 Mg Tab.rapdis 1 Tab PO PRN Q6-8HRS PRN Levofloxacin 750 Mg Tablet 1 Tab PO DAILY Flagyl (Metronidazole) 500 Mg Tablet 1 Tab PO BID 7 Days Levothyroxine Sodium 112 Mcg Tablet 1 Tab PO DAILY Reported Anti-Itch (Hydrocortisone Acetate) 28 Gm Oint...g. 1 Misc TD PRN Q4-6HRS PRN Alendronate Sodium 70 Mg Tablet 1 Tab PO WEEKLY Folic Acid 1 Mg Tablet 1 Tab PO DAILY Trazodone Hcl 150 Mg Tablet 1 Tab PO QHS Simvastatin 20 Mg Tablet 1 Tab PO QHS Ondansetron Odt (Ondansetron) 4 Mg Tab.rapdis 1 Tab PO PRN Q6-8HRS Omeprazole 40 Mg Capsule.dr 1 Cap PO DAILY Losartan Potassium 50 Mg Tablet 50 Mg PO DAILY Soma (Carisoprodol) 350 Mg Tablet 1 Tab PO TID Lyrica (Pregabalin) 300 Mg Capsule 300 Mg PO DAILY Cymbalta (Duloxetine Hcl) 60 Mg Capsule.dr 60 Mg PO DAILY Xanax (Alprazolam) 1 Mg Tablet Unknown Dose PO PRN Q6HRS PRN Vital Signs Vital Signs Date Time Temp Pulse Resp B/P (MAP) Pulse Ox O2 Delivery O2 Flow Rate FiO2 02/04/19 11:00 98.0 85 18 138/99 (112) 95 Room Air 98.0 Allergies Allergies Coded Allergies Type Severity Reaction Last Updated Verified aspirin Allergy Intermediate 07/01/17 Yes codeine Adverse Reaction Intermediate VOMITING 02/04/19 Yes sulfamethoxazole Adverse Reaction Intermediate VOMITING 02/04/19 Yes trimethoprim Adverse Reaction Intermediate VOMITING 02/04/19 Yes Disposition/Orders: D/C to Home Patient Instructions D/C PLANNING 26 MIN YOEL MATHEW MD Feb 04, 2019 11:58
[2019-02-04] MEDS ORDERED: LACT1CAP19 PO (12:01)
--- NOTE | 2019-02-04 15:26 | NUR ---
Pt left unit with family member by wheelchair via private vehicle. IV removed with no complications. Pt discharge instructions discussed with pt and additional questions addressed. Pt stable upon discharge.
[2019-02-07] MEDS ORDERED: NON FORMULARY ITEM (Alendronate Sodium 1 TAB) PO SCH (09:00)
== END 2019-02-04 15:29 | disposition home or self-care (01) | DRG 392 ==
LOC: ER 13:09 → 5 SOUTH 15:46
PROVIDERS: ADMIT Family Medicine; ATTEND Family Medicine
DX: K57.32 Diverticulitis of large intestine without perforation or abscess without bleeding (principal); E86.0 Dehydration; F12.10 Cannabis abuse, uncomplicated; E03.9 Hypothyroidism, unspecified; E78.00 Pure hypercholesterolemia, unspecified; E78.5 Hyperlipidemia, unspecified; F32.9 Major depressive disorder, single episode, unspecified; F41.9 Anxiety disorder, unspecified; G89.29 Other chronic pain; I10 Essential (primary) hypertension; J44.9 Chronic obstructive pulmonary disease, unspecified; K21.9 Gastro-esophageal reflux disease without esophagitis; K42.9 Umbilical hernia without obstruction or gangrene; K64.8 Other hemorrhoids; M79.7 Fibromyalgia; M81.0 Age-related osteoporosis without current pathological fracture; Z82.49 Family history of ischemic heart disease and other diseases of the circulatory system; Z90.49 Acquired absence of other specified parts of digestive tract; Z90.710 Acquired absence of both cervix and uterus; Z98.41 Cataract extraction status, right eye; Z88.2 Allergy status to sulfonamides; M19.90 Unspecified osteoarthritis, unspecified site
CPT/HCPCS: 36415; 74177; 80048; 80053; 80307; 81001; 83690; 85025; 87040; 87086; 93005; 94640; 96361; 96374; 96375; 96376; C9113; J0744; J0780; J1170; J1200; J1650; J2270; J2405; J2765; J3490; J7030; J7620; Q0162; Q9967; 99285-25; G0378

== ENCOUNTER → 2019-02-10 | Outpatient (CLI) | payer BC, MEDICARE ==
[2019-02-04 11:00] VITALS: BP 138/99
[~2019-02-10] MED LIST changes: +HYDR28OI6 TD; +LACT1CAP19 PO
--- NOTE | 2019-02-10 12:56 | KCIC ---
EXAM: Lumbar spine, 3 views. HISTORY: Pain. COMPARISON: None. FINDINGS: 3 views of the lumbar spine are obtained. There is minimal lumbar dextroscoliosis centered at L2. There is mild lumbar hyperlordosis. There is no significant listhesis. There is degenerative endplate remodeling at all levels. There is facet arthropathy predominantly at the lumbosacral junction. There are cholecystectomy clips. There is a clip within the pelvis. IMPRESSION: 1. Multilevel degenerative change, primarily at the lumbosacral junction. 2. No acute osseous finding. Electronically signed by: Alicia Baldwin MD (02/10/2019 12:53 PM) [facility]
--- NOTE | 2019-02-10 16:25 | KCIC ---
EXAM: LEFT FOOT 3 VIEWS. HISTORY: Left foot pain. First toe injury. COMPARISON: None. FINDINGS: Three views of the left foot are obtained. There is a nondisplaced fracture of the first proximal phalanx distally. No clear healing changes are noted. There is mild metatarsophalangeal osteoarthritis. Alignment is maintained. There are moderate posterior and small plantar calcaneal spurs. IMPRESSION: 1. Nondisplaced fracture of the first proximal phalanx. Electronically signed by: Zaira Marsh MD (02/10/2019 4:22 PM) [facility]
== END | disposition home or self-care (01) ==
LOC: KCIC 12:12
PROVIDERS: ATTEND Nurse Practitioner Gerontology
DX: S92.415A Nondisplaced fracture of proximal phalanx of left great toe, initial encounter for closed fracture (principal); M19.072 Primary osteoarthritis, left ankle and foot; M77.32 Calcaneal spur, left foot; M46.87 Other specified inflammatory spondylopathies, lumbosacral region; M47.817 Spondylosis without myelopathy or radiculopathy, lumbosacral region; M40.46 Postural lordosis, lumbar region; Z90.49 Acquired absence of other specified parts of digestive tract; X58.XXXA Exposure to other specified factors, initial encounter; Y93.89 Activity, other specified; Y92.89 Other specified places as the place of occurrence of the external cause; Y99.8 Other external cause status
CPT/HCPCS: 72100; 73630

== ENCOUNTER → 2019-05-13 | Outpatient (CLI) | payer BC, MEDICARE ==
[~2019-05-13] MED LIST changes: +REGADENOSON 0.4 MG/5 ML DISP.SYRIN. IV ONE; +TRAZ-123 PO; -TRAZ-86 PO
--- NOTE | 2019-05-13 09:43 | CARD ---
MR#: [id number] Date of Study: 05/13/2019 Ordering Physician: JOSE AGGARWAL, Referring Physician: JOSE AGGARWAL, Tech: Heidi Strickland RDCS APPROVED REPORT EXAM: Two-dimensional and M-mode echocardiogram with Doppler and color Doppler. Other Information Quality : AverageHR: 98bpm INDICATION Chest Pain RISK FACTORS Hypertension Hyperlipidemia 2D DIMENSIONS RVDd2.8 (2.9-3.5cm)IVSd1.0 (0.7-1.1cm) Aortic Root(2D)3.3 (2.0-3.7cm)LVDd4.2 (3.9-5.9cm) LVOT Diameter2.3 (1.8-2.4cm)PWd0.8 (0.7-1.1cm) LVDs3.2 (2.5-4.0cm)FS (%) 23.5 % SV37.6 mlLVEF(%)47.3 (>50%) Aortic Valve AoV Peak Damion.102.4cm/Deanne Peak GR.4.2mmHg LVOT Peak Damion.92.5cm/sAVA (VMAX)3.78cm2 Mitral Valve MV E Dedicskv53.8cm/sMV DECEL NSAI665bs MV A Yjakzlge46.0cm/sE/A Ratio0.8 MV A [id number] Pulmonary Valve PV Peak Kdcanfsz02.7cm/s Tricuspid Valve RAP [id number] Pulmonary Vein S1 Sjrancmd97.5cm/sD2 Dyyfhbmx43.0cm/s PVa [id number] LEFT VENTRICLE The left ventricle is normal size. There is normal left ventricular wall thickness. The left ventricu lar systolic function is normal and the ejection fraction is within normal range. The Ejection Fracti on is 60-65%. There is normal LV segmental wall motion. Transmitral Doppler flow pattern is Grade I-a bnormal relaxation pattern. There is no ventricular septal defect visualized. RIGHT VENTRICLE The right ventricle is normal size. The right ventricular systolic function is normal. ATRIA The left atrium size is normal. The right atrium size is normal. The interatrial septum is intact wit h no evidence for an atrial septal defect or patent foramen ovale as noted on 2-D or Doppler imaging. AORTIC VALVE The aortic valve is normal in structure and function. Doppler and Color Flow revealed no significant aortic regurgitation. There is no significant aortic valvular stenosis. MITRAL VALVE The mitral valve is normal in structure and function. There is no evidence of mitral valve prolapse. There is no mitral valve stenosis. Doppler and Color Flow revealed no mitral valve regurgitation note d. TRICUSPID VALVE The tricuspid valve is normal in structure and function. Doppler and Color Flow revealed no tricuspid valve regurgitation noted. Unable to assess PA pressure. There is no tricuspid valve stenosis. PULMONIC VALVE The pulmonary valve is normal in structure and function. Doppler and Color Flow revealed no pulmonic valvular regurgitation. There is no pulmonic valvular stenosis. GREAT VESSELS The aortic root is normal in size. The ascending aorta is normal in size. The pulmonary artery is nor mal. The IVC is normal in size and collapses >50% with inspiration. PERICARDIAL EFFUSION There is no pleural effusion. There is no evidence of significant pericardial effusion. Critical Notification Critical Value: No <Conclusion> The left ventricular systolic function is normal and the ejection fraction is within normal range. Th e Ejection Fraction is 60-65%. There is normal LV segmental wall motion. Signed by : Martin Barrios, Electronically Approved : 05/13/2019 09:43:01
--- NOTE | 2019-05-13 12:04 | RAD ---
MR#: [id number] Date of Study: 05/13/2019 Ordering Physician: JOSE AGGARWAL Referring Physician: KEYSHA HEATH Tech: RT Dale MenjivarR) (N) APPROVED REPORT Test Type: Pharmacological Stress Nurse/Tech: Karon Carias RN Test Indications: CP Cardiac History: Hyperlipidemia, HTN, See EMR. Medications: See EMR. Medical History: See EMR. Resting ECG: SR Resting Heart Rate: 91 bpm Resting Blood Pressure: 125/68mmHg Pretest Chest Pain: No chest pain Nurse/Tech Notes Lungs CTA, Heart tones regular. Consent: The procedure was explained to the patient in lay terms. Informed consent was witnessed. Geovanni eout was entered into [email or web address]. History and Stress Test performed by RT Tiara (R) (N) Pharm. Details Pharmacologic stress testing was performed using 0.4mg per 5ml of regadenoson given intravenously ove r 7-10 seconds. Stress Symptoms Dyspnea POST EXERCISE Reason for Termination: Infusion complete Max HR: 122 bpm Max Blood Pressure: 131/73mmHg Blood Pressure response to exercise: Normal blood pressure response during stress. Heart Rate response to exercise: WNL Chest Pain: No. Arrhythmia: No. ST Change: No. INTERPRETATION Stress EKG Conclusion: The resting EKG shows a sinus rhythm with mild nonspecific T-wave changes. The stress EKG shows no significant changes from baseline. No EKG evidence of stress-induced ischemia. Imaging Protocol IMAGE PROTOCOL: Rest Tc-99m/stress Tc-99m 1 day Rest: Stress: Viability: Radiopharm.Tc99m NixzrlhchWj71p Sestamibi Kdzg22vBf 33mCi Duration 15min. 15min. Img Date 05/13/2019 05/13/2019 Inj-Img Tmcw00lgl. 60min. Rest Admin Site:IV - Right AntecubitalAdministrator:RT Tiara (R)(N) Stress Admin Site: IV - Right AntecubitalAdministrator: RT Tiara (R)(N) STRESS DATA End Diast. Vol.62.0mlAv. Heart Rate97.0bpm End Syst. Vol.15.0mlCO Index BSA0.0L/min Myocardial Oslh352.0gEject. Gsaezdfs80.0% Stress Rates Pk. Fill Rate5.49EDV/secLVtime Pk. Fill 172.12msec Pk. Empty Rate5.72ESV/secLVtime Pk. Eject89.86msec 1/3 Pk. Fill1.16EDV/sec Stress Scores Regional WT1.00Summed WT8.00 Regional WM0.00Summed WM3.00 LV Perfusion The stress scans showed no significant defects. The rest scans showed no significant defects. Nuclear imaging shows no reversible ischemia or infarct. Wall Motion Left ventricular systolic function is normal with an ejection fraction of greater than 70%. LV Perf. Quant 17 Seg. SSS0.00 17 Seg. SRS0.00 17 Seg. SDS0.00 Stress Defect Extent (% LAD)0.00Rest Defect Extent (% LAD)0.00Rev. Defect Extent (% LAD)0.00 Stress Defect Extent (% LCX) 0.00Rest Defect Extent (% LCX)0.00Rev. Defect Extent (% LCX)0.00 Stress Defect Extent (% RCA)0.00Rest Defect Extent (% RCA)0.00Rev. Defect Extent (% RCA)0.00 Stress Defect Extent (% CHEYANNE)0.00Rest Defect Extent (% CHEYANNE)0.00Rev. Defect Extent (% CHEYANNE)0.00 Conclusion 1. No EKG evidence of stress-induced ischemia. 2. Nuclear imaging shows no reversible ischemia or infarct. 3. Normal left ventricular systolic function with an ejection fraction of greater than 70%. 4. Low risk Lexiscan nuclear stress test. Signed by : Daniel Zuniga MD Electronically Approved : 05/13/2019 12:03:51
== END | disposition home or self-care (01) ==
LOC: ECHO 07:26
PROVIDERS: ATTEND Internal Medicine Cardiovascular Disease
DX: R06.09 Other forms of dyspnea (principal); I10 Essential (primary) hypertension; E78.5 Hyperlipidemia, unspecified
CPT/HCPCS: 78452; 93017; 93306; A9500; J2785

== ENCOUNTER 2019-05-30 10:45 | Emergency (ER) | payer BC, MEDICARE ==
[~2019-05-30] VITALS: Ht 165.1 cm; Wt 81.0 kg
[~2019-05-30 10:45] MED LIST changes: -REGADENOSON 0.4 MG/5 ML DISP.SYRIN. IV ONE
[2019-05-30 11:20] VITALS: BP 120/80
[2019-05-30] MEDS ORDERED: ALBUTEROL SULFATE 2.5 MG/3 ML NEBU. NEB ONE (11:30)
[2019-05-30] MEDS ORDERED: ONDANSETRON ODT 4 MG TAB.RAPDIS. PO ONE (11:30)
[2019-05-30] MEDS ORDERED: predniSONE 10 MG TABLET PO ONE (11:30)
[2019-05-30] MEDS ORDERED: ACETAMINOPHEN 500 MG TABLET PO ONE (11:30)
[2019-05-30 12:05] LABS: INFLUENZA A PATIENT NEGATIVE (NEGATIVE); INFLUENZA B PATIENT NEGATIVE (NEGATIVE)
--- NOTE | 2019-05-30 12:31 | RAD ---
EXAM: Chest, 2 views. HISTORY: Cough and weakness. COMPARISON: None. FINDINGS: 2 views of the chest are obtained. There is no infiltrate, pleural effusion or pneumothorax. The heart is normal in size. IMPRESSION: No acute pulmonary finding. Electronically signed by: Alicia Baldwin MD (05/30/2019 12:28 PM) [id number]
[2019-05-30] MEDS ORDERED: AMOX500C PO (12:37)
[2019-05-30] MEDS ORDERED: METH4TAB2 PO (12:37)
[2019-05-30] MEDS ORDERED: BENZ100C PO (12:37)
--- NOTE | 2019-05-30 12:38 | PHYS DOC ---
Past Medical History Past Medical History: Anxiety, Arthritis, Depression, Diverticulitis, Fibromyalgia, High Cholesterol, Hypertension Additional Past Medical Histor: OSTEOPORESIS, CHRONIC BACK PAIN, NARCOTIC ABUSE/BENZO ABUSE (SIMRAN GELLER TRADE SALES ASSISTANT) Past Surgical History: Appendectomy, Cholecystectomy, Hysterectomy, Other Additional Past Surgical Histo: RIGHT EYE,KNEE,NECK, TAILBONE SURGERY, BILAT EAR SURGERY (SIMRAN GELLER TRADE SALES ASSISTANT) Smoking Status: Never Smoker Alcohol Use: None Drug Use: Benzodiazepine, Marijuana, Opiates Social History Narrative: LAST USE X ONE WEEK (SIMRAN GELLER TRADE SALES ASSISTANT) Adult General Chief Complaint Chief Complaint: FLU SYMPTOM HPI HPI Patient is a 59 year old female who presents with cough, fever, nasal congestion, vomiting with cough since Friday. Patient states she's been taking Mucinex DM. Patient's heart rate is 120 in the ED. Vital signs otherwise stable and within normal limits. Patient denies chest pain, shortness of air, nausea, diarrhea, dizziness, headache, syncope, weakness, numbness or tingling. (SIMRAN GELLER TRADE SALES ASSISTANT) Review of Systems Review of Systems Constitutional: fever or chills [] HENT: nasal congestion or sore throat [] Respiratory: Denies cough or shortness of breath [] Musculoskeletal: Bodyaches. Denies back pain or joint pain [] All other systems were reviewed and found to be within normal limits, except as documented in this note. (SIMRAN GELLER APRN) Current Medications Current Medications Current Medications Medications (Trade) Dose Ordered Sig/Joni Start Time Stop Time Status Last Admin Dose Admin Acetaminophen (Tylenol) 1,000 mg 1X ONCE 05/30/19 11:30 05/30/19 11:32 DC 05/30/19 11:49 1,000 MG Albuterol Sulfate (Ventolin Neb Soln) 2.5 mg 1X ONCE 05/30/19 11:30 05/30/19 11:32 DC 05/30/19 11:40 2.5 MG Ondansetron HCl (Zofran Odt) 4 mg 1X ONCE 05/30/19 11:30 05/30/19 11:32 DC 05/30/19 11:48 4 MG Potassium Chloride (Klor-Con) 40 meq 1X ONCE 05/30/19 13:45 05/30/19 13:46 DC Prednisone (Prednisone) 50 mg 1X ONCE 05/30/19 11:30 05/30/19 11:32 DC 05/30/19 11:49 50 MG Sodium Chloride 1,000 ml @ 1,000 mls/hr 1X ONCE 05/30/19 12:45 05/30/19 13:44 DC 05/30/19 13:06 1,000 MLS/HR (ANDREZ PARKER MD) Allergies Allergies Allergies Coded Allergies Type Severity Reaction Last Updated Verified aspirin Allergy Intermediate 07/01/17 Yes codeine Adverse Reaction Intermediate VOMITING 02/04/19 Yes sulfamethoxazole Adverse Reaction Intermediate VOMITING 02/04/19 Yes trimethoprim Adverse Reaction Intermediate VOMITING 02/04/19 Yes (ANDREZ PARKER MD) Physical Exam Physical Exam Constitutional: Well developed, well nourished, no acute distress, non-toxic appearance. [] HENT: Normocephalic, atraumatic, bilateral external ears normal, oropharynx moist, no oral exudates, nose normal. Throat reddened. [] Eyes: PERRLA, EOMI, conjunctiva normal, no discharge. [] Neck: Normal range of motion, no tenderness, supple, no stridor. [] Cardiovascular:Heart rate regular rhythm, no murmur [] Lungs & Thorax: Bilateral breath sounds clear to auscultation [] Abdomen: Bowel sounds normal, soft, no tenderness, no masses, no pulsatile masses. [] Skin: Warm, dry, no erythema, no rash. [] Back: No tenderness, no CVA tenderness. [] Extremities: No tenderness, no cyanosis, no clubbing, ROM intact, no edema. [] Neurologic: Alert and oriented X 3, normal motor function, normal sensory function, no focal deficits noted. [] Psychologic: Affect normal, judgement normal, mood normal. [] (DUYEN,SIMRAN Moran APRN) Current Patient Data Vital Signs Vital Signs Date Time Temp Pulse Resp B/P (MAP) Pulse Ox O2 Delivery O2 Flow Rate FiO2 05/30/19 11:40 Room Air 05/30/19 11:20 98.3 20 120/80 (93) 96 98.3 (ANDREZ PARKER MD) Lab Values Laboratory Tests Test 05/30/19 11:41 05/30/19 13:00 Influenza Type A Antigen Negative (NEGATIVE) Influenza Type B Antigen Negative (NEGATIVE) White Blood Count 5.7 x10^3/uL (4.0-11.0) Red Blood Count 4.44 x10^6/uL (3.50-5.40) Hemoglobin 14.2 g/dL (12.0-15.5) Hematocrit 40.2 % (36.0-47.0) Mean Corpuscular Volume 91 fL (79-100) Mean Corpuscular Hemoglobin 32 pg (25-35) Mean Corpuscular Hemoglobin Concent 35 g/dL (31-37) Red Cell Distribution Width 14.2 % (11.5-14.5) Platelet Count 315 x10^3/uL (140-400) Neutrophils (%) (Auto) 60 % (31-73) Lymphocytes (%) (Auto) 31 % (24-48) Monocytes (%) (Auto) 8 % (0-9) Eosinophils (%) (Auto) 0 % (0-3) Basophils (%) (Auto) 1 % (0-3) Neutrophils # (Auto) 3.4 x10^3/uL (1.8-7.7) Lymphocytes # (Auto) 1.8 x10^3/uL (1.0-4.8) Monocytes # (Auto) 0.5 x10^3/uL (0.0-1.1) Eosinophils # (Auto) 0.0 x10^3/uL (0.0-0.7) Basophils # (Auto) 0.0 x10^3/uL (0.0-0.2) Sodium Level 139 mmol/L (136-145) Potassium Level 3.0 mmol/L (3.5-5.1) L Chloride Level 98 mmol/L (98-107) Carbon Dioxide Level 21 mmol/L (21-32) Anion Gap 20 (6-14) H Blood Urea Nitrogen 12 mg/dL (7-20) Creatinine 0.8 mg/dL (0.6-1.0) Estimated GFR (Cockcroft-Gault) 73.7 BUN/Creatinine Ratio 15 (6-20) Glucose Level 109 mg/dL (70-99) H Calcium Level 9.5 mg/dL (8.5-10.1) Total Bilirubin 0.4 mg/dL (0.2-1.0) Aspartate Amino Transferase (AST) 31 U/L (15-37) Alanine Aminotransferase (ALT) 29 U/L (14-59) Alkaline Phosphatase 73 U/L (46-116) Troponin I Quantitative < 0.017 ng/mL (0.000-0.055) Total Protein 7.9 g/dL (6.4-8.2) Albumin 3.9 g/dL (3.4-5.0) Albumin/Globulin Ratio 1.0 (1.0-1.7) Laboratory Tests 05/30/19 13:00 Laboratory Tests 05/30/19 13:00 (ANDREZ PARKER MD) EKG EKG Sinus Rhythm and no STEMI[] Interpretation Time: [address] Parker (SIMRAN GELLER APRN) Radiology/Procedures Radiology/Procedures [] (SIMRAN GELLER APRN) Impressions: [facility] [address] [place], [place] [id number] IMAGING REPORT Signed PATIENT: AIME SANCHEZ ACCOUNT: [id number] : 1960 LOCATION: ER AGE: 59 SEX: F EXAM STATUS: REG ER ORD. PHYSICIAN: SIMRAN GELLER APRN REASON: cough, weakness PROCEDURE: CHEST PA & LATERAL EXAM: Chest, 2 views. HISTORY: Cough and weakness. COMPARISON: None. FINDINGS: 2 views of the chest are obtained. There is no infiltrate, pleural effusion or pneumothorax. The heart is normal in size. IMPRESSION: No acute pulmonary finding. Electronically signed by: Alicia Lopez MD (05/30/2019 12:28 PM) [id number] DICTATED and SIGNED BY: ALICIA LOPEZ MD DATE: 05/30/19 122 (SIMRAN GELLER APRN) Course & Med Decision Making Course & Med Decision Making Pertinent Labs and Imaging studies reviewed. (See chart for details) Alert and oriented. Speaks in full clear sentences. Ambulatory with a steady gait. Skin pink warm and dry. Lungs are clear to auscultation all lobes. Throat is reddened but there is no exudates or swelling. No peripheral edema. Patient's heart rate is 120 in the ED. Patient is likely dehydrated. Patient states she did not take any pain medication prior to arrival. Influenza negative. Chest x-ray normal. Patient is given normal saline bolus, prednisone, breathing treatment in the ED. Patient is feeling better and her heart rate has come down to 96. Patient discharged home and to follow up with primary care provider. [] (SIMRAN GELLER APRN) Course & Med Decision Making Staff Physician Addendum: I was working in the ER during the course of this patient's visit. I was available for consultation as needed, but I was not directly involved in the care of this patient. (ANDREZ PARKER MD) Dragon Disclaimer Dragon Disclaimer This electronic medical record was generated, in whole or in part, using a voice recognition dictation system. (SIMRAN GELLER APRN) Departure Departure Impression: Primary Impression: Cough Additional Impressions: Fever Nasal congestion Disposition: HOME, SELF-CARE Condition: STABLE Referrals: UNKNOWN PCP NAME (PCP) Patient Instructions: Cough, Adult, Fever, Adult Additional Instructions: Follow up with your primary care physician. Take medications with food and as prescribed. Drink plenty of fluids. Scripts Benzonatate (TESSALON PERLE) 100 Mg Capsule 1 CAP PO TID, #30 CAP Prov: SIMRAN GELLER APRN 05/30/19 Methylprednisolone (MEDROL) 4 Mg Tab.ds.pk 1 PKG PO UD, #1 PKG Prov: SIMRAN GELLER APRN 05/30/19 Amoxicillin (AMOXICILLIN) 500 Mg Capsule 1 CAP PO BID, #20 CAP Prov: SIMRAN GELLER APRN 05/30/19 Problem Qualifiers Additional Impressions: Fever Fever type: unspecified Qualified Codes: R50.9 - Fever, unspecified SIMRAN GELLER APRN May 30, 2019 12:38 ANDREZ PARKER MD May 31, 2019 06:38
[2019-05-30] MEDS ORDERED: IV NORMAL SALINE 1000ML BAG 1,000 ML IV ONE (12:45)
[2019-05-30 13:18] LABS: BASO % 1 % (0-3); EOS % 0 % (0-3); HEMATOCRIT 40.2 % (36.0-47.0); HEMOGLOBIN 14.2 g/dL (12.0-15.5); LYMPH # 1.8 x10^3/uL (1.0-4.8); LYMPH % 31 % (24-48); MEAN CORPUSCULAR HEMOGLOBIN 32 pg (25-35); MEAN CORPUSCULAR HGB CONC 35 g/dL (31-37); MEAN CORPUSCULAR VOLUME 91 fL (79-100); MONO # 0.5 x10^3/uL (0.0-1.1); MONO % 8 % (0-9); NEUT # 3.4 x10^3/uL (1.8-7.7); NEUT % 60 % (31-73); PLATELET COUNT 315 x10^3/uL (140-400); RED BLOOD COUNT 4.44 x10^6/uL (3.50-5.40); RED CELL DISTRIBUTION WIDTH 14.2 % (11.5-14.5); WHITE BLOOD COUNT 5.7 x10^3/uL (4.0-11.0)
[2019-05-30 13:32] LABS: ALBUMIN 3.9 g/dL (3.4-5.0); CALCIUM 9.5 mg/dL (8.5-10.1); CREATININE 0.8 mg/dL (0.6-1.0); GFR 73.7; TOTAL BILIRUBIN 0.4 mg/dL (0.2-1.0); TOTAL PROTEIN 7.9 g/dL (6.4-8.2)
[2019-05-30] MEDS ORDERED: POTASSIUM CHLORIDE 20 MEQ TABLET.ER. PO ONE (13:45)
--- NOTE | 2019-05-30 20:50 | EKG ---
[facility] [address] [place] [address] Test Date: 2019-05-30 Test Time: 13:20:09 Pat Name: AIME SANCHEZ Department: Room: Gender: F [employer]: : 1960 Requested By: SIMRAN GELLER Order Number: [id number] Reading MD: Measurements Intervals [place] Rate: 96 P: 10 AK: 126 QRS: 31 QRSD: 94 T: 14 QT: 394 QTc: 505 Interpretive Statements SINUS RHYTHM QRS(T) CONTOUR ABNORMALITY CONSIDER ANTEROSEPTAL MYOCARDIAL DAMAGE PROLONGED QT POSSIBLY ABNORMAL ECG RI6.01 No previous ECG available for comparison
== END 2019-05-30 14:02 | disposition home or self-care (01) ==
LOC: ER 10:45
DX: R05 Cough (principal); R50.9 Fever, unspecified; R09.81 Nasal congestion; R11.10 Vomiting, unspecified; F41.9 Anxiety disorder, unspecified; M19.90 Unspecified osteoarthritis, unspecified site; F32.9 Major depressive disorder, single episode, unspecified; M79.7 Fibromyalgia; E78.00 Pure hypercholesterolemia, unspecified; I10 Essential (primary) hypertension; G89.29 Other chronic pain; F12.90 Cannabis use, unspecified, uncomplicated; F15.90 Other stimulant use, unspecified, uncomplicated; Z90.49 Acquired absence of other specified parts of digestive tract; Z90.89 Acquired absence of other organs; Z90.710 Acquired absence of both cervix and uterus; Z98.890 Other specified postprocedural states; Z88.5 Allergy status to narcotic agent; Z88.2 Allergy status to sulfonamides; Z88.6 Allergy status to analgesic agent; Z79.899 Other long term (current) drug therapy
CPT/HCPCS: 36415; 71046; 80053; 84484; 85025; 87804; 93005; 94640; 96360; 99285; J7030; J7512; J7613; Q0162

== ENCOUNTER → 2020-12-14 | Outpatient (CLI) | payer BC, MEDICARE ==
[~2020-12-14] MED LIST changes: -ALEN70TA6 PO; +ALEN70TA71 PO; +AMOX500C PO; +BENZ100C PO; +LEVO-101 PO; -LEVO100T PO; -LEVO112T4 PO; +LEVO112T49 PO; +METH4TAB2 PO; -OMEP40CA45 PO; +OMEP40CA7 PO; +POTA-121 PO; -POTA20TA4 PO
--- NOTE | 2020-12-14 14:49 | KCIC ---
EXAMINATION: Magnetic resonance imaging (MRI) of the cervical spine without contrast 12/14/2020 11:20 A M HISTORY: Prior surgery over 10 years ago TECHNIQUE: Multiplanar multi-weighted MRI of the cervical spine was performed without intravenous con trast using the standard cervical spine protocol. Contrast information: None administered COMPARISON: None available. FINDINGS: The alignment of the cervical spine is normal. Vertebral bodies demonstrate normal signal intensity o n all sequences. No acute fracture is identified; however, if trauma is suspected, a CT scan would b e a more sensitive examination for fractures. The craniocervical junction is normal. The visualized portions of the skull base and the posterior fossa are normal. The spinal cord demonstrates normal signal intensity on all sequences. There is disc desiccation without significant disc height loss in volving all levels of the cervical spine. Mild anterior marginal osteophytosis at C6-C7. No soft tiss ue abnormality is identified. Normal signal voids are present in the vertebral arteries. There is a left mastoid effusion. C2-C3: The disk is normal in configuration. There is no facet arthropathy. There is no uncovertebral joint disease. There is no neuroforaminal stenosis. There is no spinal canal stenosis. C3-C4: Mild disc bulge. Moderate left facet arthropathy. Mild uncovertebral joint disease. Mild bilat eral neuroforaminal stenosis, right greater than left. No significant spinal canal stenosis. C4-C5: There is a disc bulge with right central disc protrusion. Mild facet arthropathy. Mild uncover tebral joint disease. Mild/moderate right neural foraminal stenosis. No significant spinal canal sten osis. C5-C6: There is a posterior disc osteophyte complex. Moderate right and mild left facet arthropathy. Mild uncovertebral joint disease. Mild to moderate right and mild left neuroforaminal stenosis. Mild spinal canal stenosis, exacerbated by ligamentum flavum infolding. No deformity cord or cord signal a lteration. C6-C7: There is a posterior disc osteophyte complex with central disc protrusion. Mild facet arthropa thy. Mild to moderate uncovertebral joint disease. Moderate bilateral neuroforaminal stenosis. Mild s kiel canal stenosis without deformity of the cord or cord signal alteration. C7-T1: There is a posterior disc osteophyte complex. There is a central disc extrusion. Mild facet ar thropathy. Mild right neural foraminal stenosis. No spinal canal stenosis. IMPRESSION: Mild degenerative changes of the cervical spine as described in detail above. Left mastoid effusion. Electronically signed by: Linda Fournier MD (12/14/2020 2:47 PM) [id number]
== END ==
LOC: KCIC MRI 10:28
PROVIDERS: ATTEND Family Medicine
DX: M47.813 Spondylosis without myelopathy or radiculopathy, cervicothoracic region (principal); M50.221 Other cervical disc displacement at C4-C5 level; M48.03 Spinal stenosis, cervicothoracic region; M48.8X3 Other specified spondylopathies, cervicothoracic region; M25.78 Osteophyte, vertebrae; M50.30 Other cervical disc degeneration, unspecified cervical region
CPT/HCPCS: 72141

== ENCOUNTER 2021-01-12 16:49 | Emergency (ER) | payer BC, MEDICARE ==
[~2021-01-12] VITALS: Ht 165.1 cm; Wt 80.6 kg
[~2021-01-12 16:49] MED LIST changes: -DULO60CA6 PO; +DULO60CA7 PO
[2021-01-12] MEDS ORDERED: MORPHINE SULFATE 4 MG/ML INJ. IVP ONE ×2 (19:00→22:00)
[2021-01-12] MEDS ORDERED: ONDANSETRON PF 4 MG/2 ML VIAL. IVP ONE (19:00)
[2021-01-12] MEDS ORDERED: IV NORMAL SALINE 1000ML BAG 1,000 ML IV ONE ×2 (19:00→20:15)
--- NOTE | 2021-01-12 19:10 | PHYS DOC ---
Past Medical History Past Medical History: Anxiety, Arthritis, Depression, Diverticulitis, Fib romyalgia, High Cholesterol, Hypertension Additional Past Medical Histor: OSTEOPORESIS, CHRONIC BACK PAIN, NARCOTIC ABUSE/BENZO ABUSE Past Surgical History: No Surgical History Additional Past Surgical Histo: RIGHT EYE,KNEE,NECK, TAILBONE SURGERY, BILAT EAR SURGERY Smoking Status: Never Smoker Alcohol Use: None Drug Use: Benzodiazepine, Marijuana, Opiates General Adult EDM: Chief Complaint: FEVER HPI: HPI: Patient is a 60 year old female here with multiple complaints. She reports fevers and chills. She reports generalized abdominal pain, as well as nausea and vomiting and diarrhea. She reports a chronic and unchanged cough. She is notable answer if she has had hemoptysis or purulent sputum production. She adamantly denies chest pain. She reports chronic dyspnea, which is unchanged today. She is unable to articulate any focal areas of abdominal pain. She denies any hematemesis, melena or hematochezia. She reports that her "kidneys hurt, and refers to generalized back pain, which is also admittedly chronic for her. She is unable to articulate if she has any urinary symptoms at all, and she is unable to tell me if she is urinated much today. She cannot articulate to me if she has anorexia or if she has been able to eat and drink anything today. She indicates symptoms being present for "a couple days." She denies any recent travel or sick contacts. She denies any recent antibiotic use or hospitalization. She is unable to articulate if she is ever had any abdominal surgeries. She does appear to have some laparoscopic scars on her abdominal wal l, no laparotomy scars are noted. No documented surgeries are noted in today's chart. She is a very poor historian. Review of Systems: Review of Systems: Constitutional: Reports fevers and chills. [] Eyes: Denies change in visual acuity. [] HENT: Denies nasal congestion or sore throat. [] Respiratory: Admits to chronic shortness of breath, unable to articulate any changes today. [] Cardiovascular: Denies chest pain or edema. [] GI: Admits to generalized abdominal pain, nausea, vomiting and diarrhea. Denies melena, hematochezia or hematemesis. : Unable to articulate details about urinary symptoms. Musculoskeletal: Ports diffuse generalized back pain. Denies joint swelling, redness or specific joint pain. Integument: Denies rash. [] Neurologic: Denies headache, focal weakness or sensory changes. [] Lymphatic: Denies swollen glands. [] Psychiatric: Chronic and unchanged anxiety symptoms present. Heart Score: C/O Chest Pain: No Risk Factors: Risk Factors: DM, Current or recent (<one month) smoker, HTN, HLP, family history of CAD, obesity. Risk Scores: Score 0 - 3: 2.5% MACE over next 6 weeks - Discharge Home Score 4 - 6: 20.3% MACE over next 6 weeks - Admit for Clinical Observation Score 7 - 10: 72.7% MACE over next 6 weeks - Early Invasive Strategies Current Medications: Current Medications Medications (Trade) Dose Ordered Sig/Joni Start Time Stop Time Status Last Admin Dose Admin Morphine Sulfate (Morphine Sulfate) 4 mg 1X ONCE 01/12/21 19:00 01/12/21 19:01 DC Ondansetron HCl (Zofran) 4 mg 1X ONCE 01/12/21 19:00 01/12/21 19:01 DC Sodium Chloride 1,000 ml @ 1,000 mls/hr 1X ONCE 01/12/21 19:00 01/12/21 19:59 Allergies: Allergies: Allergies Coded Allergies Type Severity Reaction Last Updated Verified aspirin Allergy Intermediate 07/01/17 Yes codeine Adverse Reaction Intermediate VOMITING 02/04/19 Yes sulfamethoxazole Adverse Reaction Intermediate VOMITING 02/04/19 Yes trimethoprim Adverse Reaction Intermediate VOMITING 02/04/19 Yes Physical Exam: PE: Constitutional: Well developed, well nourished, she is tearful, crying appears to be uncomfortable but is nontoxic. HENT: Normocephalic, atraumatic, bilateral external ears normal, oropharynx moist, no oral exudates, nose normal. [] Eyes: PERRLA, EOMI, conjunctiva normal, anicteric, no discharge. [] Neck: Normal range of motion, no tenderness, supple, no stridor. [] Cardiovascular: Tachycardic, regular, +2 posterior tibial and radial pulses bilaterally. Cap refill is brisk, appears well perfused. Lungs & Thorax: Bilateral breath sounds clear to auscultation [] Abdomen: Abdomen is soft, nondistended, diffusely tender to palpation in the upper mid abdomen, periumbilical area, with intermittent voluntary guarding, no focal tenderness, no focal right lower quadrant or left lower quadrant tenderness. No rebound tenderness. Normal bowel sounds noted. No palpable organomegaly. No flank or abdominal ecchymoses noted. Skin: Warm, dry, no erythema, no rash. [] Back: No tenderness, no CVA tenderness. [] Extremities: No tenderness, no cyanosis, no clubbing, ROM intact, no edema. [] Neurologic: Alert and oriented X 3, normal motor function, normal sensory function, no focal deficits noted. [] Psychologic: She is anxious, tearful, but cooperative Current Patient Data: Vital Signs: Vital Signs Date Time Temp Pulse Resp B/P (MAP) Pulse Ox O2 Delivery O2 Flow Rate FiO2 01/12/21 18:30 99.3 115 22 173/105 (127) 98 Room Air 99.3 EKG: EKG: EKG read at 1922 Rhythm is sinus tachycardia Rate is 113 beats per minute Lysite is normal No STEMI Second EKG read at 2216 Rhythm sinus Heart rate [address] abnormalities, no STEMI Radiology/Procedures: Radiology/Procedures: IMAGING REPORT Signed PATIENT: AIME SANCHEZ ACCOUNT: [id number] : 1960 LOCATION: ER AGE: 60 SEX: F EXAM STATUS: REG ER ORD. PHYSICIAN: TERELL ALTMAN DO REASON: abdominal pain, n/v/diarrhea, OMNI 300 60 ML IV PROCEDURE: CT ABD PELV W/ IV CONTRST ONLY INDICATION: Reason: abdominal pain, n/v/diarrhea, OMNI 300 60 ML IV / Spl. Instructions: / History: COMPARISON: January 2019 TECHNIQUE: Axial CT images were obtained through the abdomen and pelvis with intravenous contrast. One or more of the following individualized dose reduction techniques were utilized for this examination: 1. Automated exposure control; 2. Adjustment of the mA and/or kV according to patient size; 3. Use of iterative reconstruction technique. FINDINGS: Vascular: Scattered calcific atherosclerosis. Hepatobiliary: Liver is low density. Can be seen with fatty infiltration. There is a higher density component within which could be from focal fatty sparing. Bile ducts are prominent which is a common finding post cholecystectomy. Pancreas: No peripancreatic edema. Spleen: Spleen unremarkable. Renal/Bladder: Subcentimeter low-density lesion of the left kidney. Too small to characterize but commonly from cyst. Urinary bladder is largely decompressed with prominence of wall. Gastrointestinal: Colonic diverticulosis. Surgical clips at the right lower quadrant of the abdomen. Mild haziness the fat adjacent to sigmoid diverticula. Subcutaneous calcifications within the fat. Degenerative changes throughout the spine with multilevel central canal and neural foraminal stenosis. There is a few scattered sclerotic foci in the osseous structures which is commonly from bone island but nonspecific appeara nce. IMPRESSION: * Wall thickening of the sigmoid colon with some adjacent edema to the fat which can be seen with diverticulitis. Would consider obtaining a follow-up to ensure that this resolves to exclude less common causes such as a colon mass. Th is is a mild finding. * Liver is low density which can be seen with fatty infiltration. * Dilatation of the bile ducts which is a common finding post cholecystectomy. * The urinary bladder is not very distended but there is some prominence of the wall. Would correlate with symptoms to ensure there is not a pathologic cause such as cystitis Electronically signed by: Neha Bucio MD (01/12/2021 9:10 PM) [id number] DICTATED and SIGNED BY: NEHA BUCIO MD DATE: 01/12/21 [id number] Course & Med Decision Making: Course & Med Decision Making Pertinent Labs and Imaging studies reviewed. (See chart for details) The patient is given IV fluid boluses. She is given IV Zofran and morphine. She is resting comfortably. Repeat exam demonstrates no surgical abdominal findings. She continues to deny chest pain. She denies active dyspnea. Tachycardia resolved. Blood pressure is improved. No evidence of hypoxia. EKG appears to be improved with rate control. I have discussed all the findings, differential diagnosis and plan of care with the patient. I did explain that her CT does demonstrate findings of likely colitis/diverticulitis. I explained she should follow-up with GI for endoscopy to rule out underlying mass or malignancy as well. Commend that she follow-up with her primary care physician. I have given her strict return precautions and home care instructions. She feels comfortable with the plan of care. She feels comfortable going home and reports feeling much better. She verbalized understanding of instructions provided. Rachel Disclaimer: Rachel Disclaimer: This electronic medical record was generated, in whole or in part, using a voice recognition dictation system. Departure Departure Impression: Primary Impression: Generalized abdominal pain Additional Impressions: Nausea vomiting and diarrhea Diverticulitis Disposition: HOME / SELF CARE / HOMELESS Condition: STABLE Referrals: ERIC DAMIAN MD (PCP) Patient Instructions: Diverticulitis Additional Instructions: Take the medication as directed. Eat a bland diet. Return for dehydration, fever of 100.4 or higher, for vomiting blood, more severe pain or other concerns. Please contact your primary care physician for follow up. You should also see an outpatient GI doctor to make sure you don't have any other serious problems, such as chronic inflammation or mass/tumor/cancer. Scripts Ondansetron (ONDANSETRON ODT) 4 Mg Tab.rapdis 1 TAB PO PRN Q6-8HRS, #20 TAB Prov: TERELL ALTMAN DO 01/12/21 Metronidazole (METRONIDAZOLE) 500 Mg Tablet 1 TAB PO TID for 10 Days, #30 TAB 0 Refills Prov: TERELL ALTMAN DO 01/12/21 Ciprofloxacin (CIPRO) 250 Mg/5 Ml Radha.mc.rec 1 TAB PO BID for 10 Days, #20 TAB 0 Refills Prov: TERELL ALTMAN DO 01/12/21 TERELL ALTMAN DO Jan 12, 2021 19:10
[2021-01-12 19:32] LABS: BASO % 0 % (0-3); EOS # 0.1 x10^3/uL (0.0-0.7); EOS % 1 % (0-3); HEMATOCRIT 44.7 % (36.0-47.0); HEMOGLOBIN 15.5 g/dL (12.0-15.5); LYMPH # 3.6 x10^3/uL (1.0-4.8); LYMPH % 34 % (24-48); MEAN CORPUSCULAR HEMOGLOBIN 32 pg (25-35); MEAN CORPUSCULAR HGB CONC 35 g/dL (31-37); MEAN CORPUSCULAR VOLUME 91 fL (79-100); MONO # 1.1 x10^3/uL (0.0-1.1); MONO % 10 % (0-9); NEUT # 5.7 x10^3/uL (1.8-7.7); NEUT % 55 % (31-73); PLATELET COUNT 384 x10^3/uL (140-400); RED BLOOD COUNT 4.89 x10^6/uL (3.50-5.40); RED CELL DISTRIBUTION WIDTH 14.2 % (11.5-14.5); WHITE BLOOD COUNT 10.5 x10^3/uL (4.0-11.0)
[2021-01-12 19:48] LABS: CALCIUM 10.4 mg/dL (8.5-10.1); CREATININE 1.1 mg/dL (0.6-1.0); GFR 50.8; POTASSIUM 3.6 mmol/L (3.5-5.1)
[2021-01-12] MEDS ORDERED: IOHEXOL 300 MG/ML 100ML VIAL. IV ONE (20:00)
[2021-01-12] MEDS ORDERED: CONTRAST GIVEN. MC PRN (20:00)
[2021-01-12 20:03] LABS: ALBUMIN/GLOBULIN RATIO 1.4 (1.0-1.7); TOTAL BILIRUBIN 0.6 mg/dL (0.2-1.0); TOTAL PROTEIN 8.7 g/dL (6.4-8.2)
--- NOTE | 2021-01-12 21:13 | RAD ---
INDICATION: Reason: abdominal pain, n/v/diarrhea, OMNI 300 60 ML IV / Spl. Instructions: / History: COMPARISON: January 2019 TECHNIQUE: Axial CT images were obtained through the abdomen and pelvis with intravenous contrast. One or more of the following individualized dose reduction techniques were utilized for this examinat ion: 1. Automated exposure control; 2. Adjustment of the mA and/or kV according to patient size; 3 . Use of iterative reconstruction technique. FINDINGS: Vascular: Scattered calcific atherosclerosis. Hepatobiliary: Liver is low density. Can be seen with fatty infiltration. There is a higher density c omponent within which could be from focal fatty sparing. Bile ducts are prominent which is a common f inding post cholecystectomy. Pancreas: No peripancreatic edema. Spleen: Spleen unremarkable. Renal/Bladder: Subcentimeter low-density lesion of the left kidney. Too small to characterize but com monly from cyst. Urinary bladder is largely decompressed with prominence of wall. Gastrointestinal: Colonic diverticulosis. Surgical clips at the right lower quadrant of the abdomen. Mild haziness the fat adjacent to sigmoid diverticula. Subcutaneous calcifications within the fat. Degenerative changes throughout the spine with multilevel central canal and neural foraminal stenosis . There is a few scattered sclerotic foci in the osseous structures which is commonly from bone islan d but nonspecific appearance. IMPRESSION: * Wall thickening of the sigmoid colon with some adjacent edema to the fat which can be seen with d iverticulitis. Would consider obtaining a follow-up to ensure that this resolves to exclude less comm on causes such as a colon mass. This is a mild finding. * Liver is low density which can be seen with fatty infiltration. * Dilatation of the bile ducts which is a common finding post cholecystectomy. * The urinary bladder is not very distended but there is some prominence of the wall. Would correlat e with symptoms to ensure there is not a pathologic cause such as cystitis Electronically signed by: Parish Epstein MD (01/12/2021 9:10 PM) [id number]
[2021-01-12] MEDS ORDERED: MORPHINE SULFATE 4 MG/ML INJ. IM ONE (22:00)
[2021-01-12 22:15] LABS: BILIRUBIN,URINE SMALL (NEG); CLARITY,URINE CLEAR; COLOR,URINE YELLOW; NITRITE,URINE NEGATIVE (NEG); PROTEIN,URINE NEGATIVE (NEG-TRACE)
[2021-01-12 22:30] LABS: BACTERIA,URINE 0 /HPF (0-FEW); RBC,URINE 0 /HPF (0-2); WBC,URINE OCC /HPF (0-4)
--- NOTE | 2021-01-12 23:31 | EKG ---
[facility] [address] [place] [address] Test Date: 2021-01-12 Test Time: 22:01:36 Pat Name: AIME SANCHEZ Department: Room: Gender: F Inventory Control Specialist: : 1960 Requested By: TERELL ALTMAN Order Number: [id number] Reading MD: Hussein Bernabe Measurements Intervals [place] Rate: 88 P: 63 [place]: 128 QRS: 68 QRSD: 84 T: 60 QT: 392 QTc: 478 Interpretive Statements SINUS RHYTHM QRS(T) CONTOUR ABNORMALITY CONSIDER ANTEROSEPTAL MYOCARDIAL DAMAGE T ABNORMALITY IN ANTERIOR LEADS PROLONGED QT ABNORMAL ECG Electronically Signed On 01-14-2021 16:44:32 CDT by Hussein Bernabe
--- NOTE | 2021-01-12 23:31 | EKG ---
[facility] [address] [place] [address] Test Date: 2021-01-12 Test Time: 19:20:21 Pat Name: AIME SANCHEZ Department: Room: Gender: F Bolt Header: : 1960 Requested By: TERELL ALTMAN Order Number: [id number] Reading MD: Hussein Bernabe Measurements Intervals [place] Rate: 113 P: 44 FL: 126 QRS: 35 QRSD: 88 T: 264 QT: 348 QTc: 477 Interpretive Statements SINUS TACHYCARDIA ST & T ABNORMALITY, CONSIDER ANTERIOR ISCHEMIA OR LEFT VENTRICULAR STRAIN INFEROLATERAL ISCHEMIA OR LEFT VENTRICULAR STRAIN ABNORMAL ECG Electronically Signed On 01-14-2021 16:46:20 CDT by Hussein Bernabe
[2021-01-12] MEDS ORDERED: METR-34 PO (23:37)
[2021-01-12] MEDS ORDERED: CIPR250S2 PO (23:37)
[2021-01-12 23:39] VITALS: BP 140/89
[2021-01-12] MEDS ORDERED: ONDA4TAB12 PO (23:40)
--- NOTE | 2021-01-13 00:49 | RAD ---
INDICATION: Reason: fever, cough / Spl. Instructions: / History: COMPARISON: May 30, 2019 FINDINGS: Single view of chest obtained. Cardiac silhouette is similar to prior. Degenerative changes the spine. No well-defined focal airspace consolidation IMPRESSION: * No definite focal airspace consolidation. Electronically signed by: Parish Epstein MD (01/13/2021 12:46 AM) [id number]
--- NOTE | 2021-01-13 03:21 | EKG ---
[facility] [address] [place] [address] Test Date: 2021-01-12 Test Time: 22:11:23 Pat Name: AIME SANCHEZ Department: Room: Gender: F Director Talent: : 1960 Requested By: TERELL ALTMAN Order Number: [id number] Reading MD: Hussein Bernabe Measurements Intervals [place] Rate: 97 P: 40 [place]: 124 QRS: 42 QRSD: 84 T: -113 QT: 396 QTc: 508 Interpretive Statements SINUS RHYTHM QRS(T) CONTOUR ABNORMALITY CONSIDER ANTEROSEPTAL MYOCARDIAL DAMAGE ST & T ABNORMALITY, CONSIDER INFERIOR ISCHEMIA OR LEFT VENTRICULAR STRAIN T ABNORMALITY IN LATERAL LEADS ABNORMAL ECG Electronically Signed On 01-14-2021 16:43:57 CDT by Hussein Bernabe
[2021-01-14] MEDS ORDERED: VENL150C6 PO (17:18)
--- NOTE | 2021-01-18 10:47 | EKG ---
[facility] [address] [place] [address] Test Date: 2021-01-12 Test Time: 22:11:23 Pat Name: AIME SANCHEZ Department: Room: Gender: F Financial Representative: : 1960 Requested By: TERELL ALTMAN Order Number: [id number] Reading MD: Measurements Intervals [place] Rate: 97 P: 40 [place]: 124 QRS: 42 QRSD: 84 T: -113 QT: 396 QTc: 508 Interpretive Statements SINUS RHYTHM QRS(T) CONTOUR ABNORMALITY CONSIDER ANTEROSEPTAL MYOCARDIAL DAMAGE ST & T ABNORMALITY, CONSIDER INFERIOR ISCHEMIA OR LEFT VENTRICULAR STRAIN T ABNORMALITY IN LATERAL LEADS ABNORMAL ECG Electronically Signed On 01-14-2021 16:43:57 CDT by Hussein Bernabe
--- NOTE | 2021-01-18 10:53 | EKG ---
SINUS RHYTHM QRS(T) CONTOUR ABNORMALITY CONSIDER ANTEROSEPTAL MYOCARDIAL DAMAGE ST & T ABNORMALITY, CONSIDER INFERIOR ISCHEMIA OR LEFT VENTRICULAR STRAIN T ABNORMALITY IN LATERAL LEADS ABNORMAL ECG Electronically Signed On 01-14-2021 16:43:57 CDT by Hussein WRIGHT
--- NOTE | 2021-01-18 11:07 | EKG ---
[facility] [address] [place] [address] Test Date: 2021-01-12 Test Time: 22:11:23 Pat Name: AIME SANCHEZ Department: Room: Gender: F Manufacturing Intern: : 1960 Requested By: TERELL ALTMAN Order Number: [id number] Reading MD: Measurements Intervals [place] Rate: 97 P: 40 [place]: 124 QRS: 42 QRSD: 84 T: -113 QT: 396 QTc: 508 Interpretive Statements SINUS RHYTHM QRS(T) CONTOUR ABNORMALITY CONSIDER ANTEROSEPTAL MYOCARDIAL DAMAGE ST & T ABNORMALITY, CONSIDER INFERIOR ISCHEMIA OR LEFT VENTRICULAR STRAIN T ABNORMALITY IN LATERAL LEADS ABNORMAL ECG Electronically Signed On 01-14-2021 16:43:57 CDT by Hussein WRIGHT
[2021-01-23] MEDS ORDERED: AMLO-186 PO (15:41)
[2021-01-23] MEDS ORDERED: VENL75TA PO (15:41)
[2021-01-23] MEDS ORDERED: LEVO88TA4 PO (15:41)
== END 2021-01-12 23:55 | disposition home or self-care (01) ==
LOC: ER 16:49
DX: K57.92 Diverticulitis of intestine, part unspecified, without perforation or abscess without bleeding (principal); R10.84 Generalized abdominal pain; R11.2 Nausea with vomiting, unspecified; R19.7 Diarrhea, unspecified; F41.9 Anxiety disorder, unspecified; M19.90 Unspecified osteoarthritis, unspecified site; F32.9 Major depressive disorder, single episode, unspecified; M79.7 Fibromyalgia; E78.00 Pure hypercholesterolemia, unspecified; I10 Essential (primary) hypertension; G89.29 Other chronic pain; Z20.822 Contact with and (suspected) exposure to COVID-19; Z88.6 Allergy status to analgesic agent; Z88.5 Allergy status to narcotic agent; Z88.2 Allergy status to sulfonamides; Z88.1 Allergy status to other antibiotic agents
CPT/HCPCS: 36415; 71045; 74177; 80053; 81001; 83605; 83690; 85025; 87040; 87426; 93005; 96361; 96374; 96375; 96376; 99285; J2270; J2405; J7030; Q9967; U0003; U0005

== ENCOUNTER → 2021-06-11 | Outpatient (CLI) | payer BC, MEDICARE ==
[2021-01-23 15:00] VITALS: BP 138/101
[~2021-06-11] MED LIST changes: +AMLO-186 PO; +CIPR250S2 PO; +IOHEXOL 240 MG/ML 50ML VIAL. PO ONE; +IOHEXOL 300 MG/ML 100ML VIAL. IV ONE; +LEVO88TA4 PO; +METR-34 PO; +VENL150C6 PO; +VENL75TA PO
--- NOTE | 2021-06-11 10:26 | KCIC ---
Examination: CT of the abdomen pelvis with IV and oral contrast HISTORY: History of diarrhea, diverticulitis, generalized abdominal pain COMPARISON: 01/14/2021 TECHNIQUE: Axial CT images of the abdomen pelvis were performed with oral and IV contrast. Coronal an d sagittal reformats are performed Exposure: One or more of the following individualized dose reduction techniques were utilized for thi s examination: 1. Automated exposure control 2. Adjustment of the mA and/or kV according to patient size 3. Use of iterative reconstruction technique FINDINGS: The bibasilar lungs are clear. No evidence of free air identified in the abdomen. Cystic structure id entified in the right lobe of the liver measuring 1.3 cm similar to prior exam could be cysts or cyst ic lesion. Mild degree attenuation noted in the liver likely hepatic steatosis. The spleen, adrenals grossly appears unremarkable Cholecystectomy changes The stomach is mildly distended. The visualized pancreas grossly appears unremarkable. The small jacob l is nondilated. Feces and gas noted in the colon. Multiple sigmoid colon diverticulosis identified. There is mild thi ckened appearance of the wall of the ascending colon, transverse colon and descending colon with surr ounding mild fat stranding. The bilateral kidneys enhance symmetrically. Moderate aortic atherosclerosis. Urinary bladder is mildly distended Moderate degenerative changes thoracolumbar spine. Subcentimeter sclerotic foci identified in the sac rum, left acetabulum likely bone island similar to prior exam. IMPRESSION: 1. Mild thickened appearance of the wall of the ascending colon, transverse colon and descending col on with surrounding mild fat stranding likely colitis. 2. Multiple sigmoid colon diverticulosis. 3. Hepatic steatosis. 4. 1.3 cm cystic structure identified in the right lobe of the liver could be cyst or cystic lesion, similar to prior exam.. Electronically signed by: Jose Eduardo Uribe MD (06/11/2021 10:24 AM) [id number]
== END ==
LOC: KCIC CT 08:45
PROVIDERS: ATTEND Internal Medicine Gastroenterology
DX: K57.30 Diverticulosis of large intestine without perforation or abscess without bleeding (principal); K76.0 Fatty (change of) liver, not elsewhere classified; K76.89 Other specified diseases of liver; K63.89 Other specified diseases of intestine; I70.0 Atherosclerosis of aorta; K31.89 Other diseases of stomach and duodenum; R19.7 Diarrhea, unspecified; M47.815 Spondylosis without myelopathy or radiculopathy, thoracolumbar region; Z90.49 Acquired absence of other specified parts of digestive tract
CPT/HCPCS: 74177; Q9966; Q9967

== ENCOUNTER 2021-06-13 12:16 | Emergency (ER) | payer BC, MEDICARE ==
[~2021-06-13] VITALS: Ht 165.1 cm; Wt 70.9 kg
[~2021-06-13 12:16] MED LIST changes: -IOHEXOL 240 MG/ML 50ML VIAL. PO ONE; -IOHEXOL 300 MG/ML 100ML VIAL. IV ONE
[2021-06-13] MEDS ORDERED: IV RINGERS,LACTATED 1000ML 1,000 ML IV ONE (13:15)
[2021-06-13 13:26] LABS: BASO % 1 % (0-3); EOS # 0.1 x10^3/uL (0.0-0.7); EOS % 2 % (0-3); HEMATOCRIT 42.9 % (36.0-47.0); LYMPH # 2.8 x10^3/uL (1.0-4.8); LYMPH % 41 % (24-48); MEAN CORPUSCULAR HEMOGLOBIN 31 pg (25-35); MEAN CORPUSCULAR HGB CONC 33 g/dL (31-37); MEAN CORPUSCULAR VOLUME 95 fL (79-100); MONO # 0.5 x10^3/uL (0.0-1.1); MONO % 8 % (0-9); NEUT # 3.3 x10^3/uL (1.8-7.7); NEUT % 49 % (31-73); PLATELET COUNT 394 x10^3/uL (140-400); RED BLOOD COUNT 4.53 x10^6/uL (3.50-5.40); RED CELL DISTRIBUTION WIDTH 14.4 % (11.5-14.5); WHITE BLOOD COUNT 6.7 x10^3/uL (4.0-11.0)
[2021-06-13 13:33] LABS: CALCIUM 9.2 mg/dL (8.5-10.1); CREATININE 0.7 mg/dL (0.6-1.0); GFR 85.4; POTASSIUM 3.6 mmol/L (3.5-5.1)
[2021-06-13 13:39] LABS: ALBUMIN 4.1 g/dL (3.4-5.0); ALBUMIN/GLOBULIN RATIO 1.2 (1.0-1.7); MAGNESIUM 1.7 mg/dL (1.8-2.4); TOTAL BILIRUBIN 0.4 mg/dL (0.2-1.0); TOTAL PROTEIN 7.4 g/dL (6.4-8.2)
[2021-06-13] MEDS ORDERED: MORPHINE SULFATE 2 MG/ML INJ. IVP ONE ×2 (13:45→14:45)
[2021-06-13 13:50] LABS: FECAL OB PT NEGATIVE (NEG)
--- NOTE | 2021-06-13 15:04 | PHYS DOC ---
Past Medical History Past Medical History: Anxiety, Arthritis, Depression, Diverticulitis, Fibromyalgia, High Cholesterol, Hypertension Additional Past Medical Histor: OSTEOPORESIS, CHRONIC BACK PAIN, NARCOTIC ABUSE/BENZO ABUSE Past Surgical History: Appendectomy, Cholecystectomy, Other Additional Past Surgical Histo: RIGHT EYE,KNEE,NECK, TAILBONE SURGERY, BILAT EAR SURGERY Smoking Status: Never Smoker Alcohol Use: None Drug Use: Benzodiazepine, Marijuana, Opiates General Adult EDM: Chief Complaint: ABDOMINAL PAIN HPI: HPI: Patient is a 61 year old female with past medical history of chronic diarrhea and diverticulitis who presents with diffuse abdominal pain. Patient reports she has had "stomach issues" since November of last year. She was hospitalized here at [facility] for 9 days after having chronic diarrhea in January 2021. Patient reports she has had several imaging studies and scopes done by Dr. Berger with [facility] GI specialist. Most recently, patient had a CT image of her abdomen and pelvis done on Friday (2 days ago). It revealed colonic wall thickening as well as diverticulosis. Patient reports she was given these findings by phone today, and instructed by the office nurse to present to the emergency department for her pain. She continues to have loose stool. Patient denies nausea, vomiting, fever, chills, generalized weakness. Review of Systems: Review of Systems: Constitutional: See HPI Eyes: Denies change in visual acuity, visual field deficits or discharge HENT: Denies ear pain, nasal congestion or sore throat Respiratory: Denies cough or shortness of breath Cardiovascular: Denies chest pain, palpitations or edema GI: See HPI : Denies dysuria or hematuria Musculoskeletal: Denies back pain or joint pain Integument: Denies rash or other skin lesion Neurologic: Denies headache, focal weakness or sensory changes Heart Score: C/O Chest Pain: No Current Medications: Current Medications Medications (Trade) Dose Ordered Sig/Joni Start Time Stop Time Status Last Admin Dose Admin Morphine Sulfate (Morphine Sulfate) 2 mg 1X ONCE 06/13/21 14:45 06/13/21 14:46 DC Ringer's Solution 1,000 ml @ 1,000 mls/hr 1X ONCE 06/13/21 13:15 06/13/21 14:14 DC 06/13/21 13:42 1,000 MLS/HR Allergies: Allergies: Allergies Coded Allergies Type Severity Reaction Last Updated Verified aspirin Allergy Intermediate 07/01/17 Yes codeine Adverse Reaction Intermediate VOMITING 02/04/19 Yes sulfamethoxazole Adverse Reaction Intermediate VOMITING 02/04/19 Yes trimethoprim Adverse Reaction Intermediate VOMITING 02/04/19 Yes Physical Exam: PE: Constitutional: Well developed, well nourished, no acute distress, non-toxic appearance. HENT: Normocephalic, atraumatic, bilateral external ears normal, nose normal. Eyes: EOMI, conjunctiva normal, no discharge. Neck: Normal range of motion, no stridor. Abdomen: Bowel sounds normal, soft, diffuse tenderness without rebound or guarding, no masses, no pulsatile masses. Skin: Warm, dry, no erythema, no rash. Neurologic: Alert and oriented x4, steady and symmetrical upright gait, no focal deficits noted. Current Patient Data: Labs: Laboratory Tests Test 06/13/21 12:40 06/13/21 13:17 White Blood Count 6.7 x10^3/uL (4.0-11.0) Red Blood Count 4.53 x10^6/uL (3.50-5.40) Hemoglobin 14.0 g/dL (12.0-15.5) Hematocrit 42.9 % (36.0-47.0) Mean Corpuscular Volume 95 fL (79-100) Mean Corpuscular Hemoglobin 31 pg (25-35) Mean Corpuscular Hemoglobin Concent 33 g/dL (31-37) Red Cell Distribution Width 14.4 % (11.5-14.5) Platelet Count 394 x10^3/uL (140-400) Neutrophils (%) (Auto) 49 % (31-73) Lymphocytes (%) (Auto) 41 % (24-48) Monocytes (%) (Auto) 8 % (0-9) Eosinophils (%) (Auto) 2 % (0-3) Basophils (%) (Auto) 1 % (0-3) Neutrophils # (Auto) 3.3 x10^3/uL (1.8-7.7) Lymphocytes # (Auto) 2.8 x10^3/uL (1.0-4.8) Monocytes # (Auto) 0.5 x10^3/uL (0.0-1.1) Eosinophils # (Auto) 0.1 x10^3/uL (0.0-0.7) Basophils # (Auto) 0.0 x10^3/uL (0.0-0.2) Sodium Level 137 mmol/L (136-145) Potassium Level 3.6 mmol/L (3.5-5.1) Chloride Level 100 mmol/L (98-107) Carbon Dioxide Level 24 mmol/L (21-32) Anion Gap 13 (6-14) Blood Urea Nitrogen 6 mg/dL (7-20) L Creatinine 0.7 mg/dL (0.6-1.0) Estimated GFR (Cockcroft-Gault) 85.4 BUN/Creatinine Ratio 9 (6-20) Glucose Level 99 mg/dL (70-99) Lactic Acid Level 1.5 mmol/L (0.4-2.0) Calcium Level 9.2 mg/dL (8.5-10.1) Magnesium Level 1.7 mg/dL (1.8-2.4) L Total Bilirubin 0.4 mg/dL (0.2-1.0) Aspartate Amino Transferase (AST) 53 U/L (15-37) H Alanine Aminotransferase (ALT) 48 U/L (14-59) Alkaline Phosphatase 52 U/L (46-116) Total Protein 7.4 g/dL (6.4-8.2) Albumin 4.1 g/dL (3.4-5.0) Albumin/Globulin Ratio 1.2 (1.0-1.7) Lipase 50 U/L (73-393) L Stool Occult Blood Negative (NEG) Laboratory Tests 06/13/21 12:40 Laboratory Tests 06/13/21 12:40 Vital Signs: Vital Signs Date Time Temp Pulse Resp B/P (MAP) Pulse Ox O2 Delivery O2 Flow Rate FiO2 06/13/21 12:22 97.7 81 18 165/98 (120) 99 Room Air 97.7 Radiology/Procedures: Radiology/Procedures: PROCEDURE: CT ABD PELV W/ORAL&IV CONTRAST Examination: CT of the abdomen pelvis with IV and oral contrast HISTORY: History of diarrhea, diverticulitis, generalized abdominal pain COMPARISON: 01/14/2021 TECHNIQUE: Axial CT images of the abdomen pelvis were performed with oral and IV contrast. Coronal and sagittal reformats are performed Exposure: One or more of the following individualized dose reduction techniques were utilized for this examination: 1. Automated exposure control 2. Adjustment of the mA and/or kV according to patient size 3. Use of iterative reconstruction technique FINDINGS: The bibasilar lungs are clear. No evidence of free air identified in the abdomen. Cystic structure identified in the right lobe of the liver measuring 1.3 cm similar to prior exam could be cysts or cystic lesion. Mild degree attenuation noted in the liver likely hepatic steatosis. The spleen, adrenals grossly appears unremarkable Cholecystectomy changes The stomach is mildly distended. The visualized pancreas grossly appears unremarkable. The small bowel is nondilated. Feces and gas noted in the colon. Multiple sigmoid colon diverticulosis identif ied. There is mild thickened appearance of the wall of the ascending colon, transverse colon and descending colon with surrounding mild fat stranding. The bilateral kidneys enhance symmetrically. Moderate aortic atherosclerosis. Urinary bladder is mildly distended Moderate degenerative changes thoracolumbar spine. Subcentimeter sclerotic foci identified in the sacrum, left acetabulum likely bone island similar to prior exam. IMPRESSION: 1. Mild thickened appearance of the wall of the ascending colon, transverse colon and descending colon with surrounding mild fat stranding likely colitis. 2. Multiple sigmoid colon diverticulosis. 3. Hepatic steatosis. 4. 1.3 cm cystic structure identified in the right lobe of the liver could be cyst or cystic lesion, similar to prior exam.. Electronically signed by: Jose Eduardo Uribe MD (06/11/2021 10:24 AM) [id number] Course & Med Decision Making: Course & Med Decision Making Pertinent Labs and Imaging studies reviewed. (See chart for details) Patient is a 7-year-old female with several month history of chronic diarrhea and abdominal pain. Patient states that she sees Dr. Swift for her GI care. She has had multiple imaging and diagnostic studies performed. Today, she was called with results of the CT scan that she had performed 2 days ago. She was advised by the office nurse to present to the emergency department for her worsening abdominal pain. Patient provided with IV morphine and fluids while here in the department. Work-up is largely reassuring. Patient is comfortable being discharged to home, she feels her pain is well controlled. Patient advised to follow-up with Dr. Swift regarding stool studies today. Patient is prescribed 30-day supply hydrocodone by her primary care provider, which she last filled on 05/25/2021. Patient is advised to follow-up with her primary care doctor if any additional pain medication as needed at home for the time being. Return precautions were provided. Patient understands and is agreeable to discharge plan. Dragon Disclaimer: Dragon Disclaimer: This electronic medical record was generated, in whole or in part, using a voice recognition dictation system. Departure Departure Impression: Primary Impression: Colitis Additional Impression: Diverticulosis of colon without diverticulitis Disposition: HOME / SELF CARE / HOMELESS Condition: IMPROVED Referrals: ERIC DAMIAN MD (PCP) ADINA SWIFT MD Patient Instructions: Colitis, Diverticulosis Additional Instructions: EMERGENCY DEPARTMENT GENERAL DISCHARGE INSTRUCTIONS Thank you for coming to [facility] Emergency Department (ED) today and trusting us with you care. We trust that you had a positive experience in our Emergency Department. If you wish to speak to the department management, you may call the director at . YOUR FOLLOW UP INSTRUCTIONS ARE FOLLOWS: 1. Follow up with your primary care doctor. If you do not have a primary doctor, please ask for a resource list of physicians or clinics that may be able to assist you with follow up care. 2. The emergency provider has interpreted your imaging studies, if any were ordered. The radiology imaging assistant also reviewed them. If there is a change in the findings, you will be notified in 48 hours when at all possible. 3. If a lab test or culture has been done, your results will be reviewed and you will be notified if you need a change in treatment. 4. Follow instructions verbalized to you and refer to the printouts if needed. ADDITIONAL INSTRUCTIONS AND INFORMATION: 1. Your care today has been supervised by a physician who is specially trained in emergency care. Many problems require more than one evaluation for a comple te diagnosis and treatment. We recommend that you schedule your follow up appointment as recommended to ensure complete treatment of you illness or injury. If you are unable to obtain follow up care and continue to have a problem, or if your condition worsens, we recommend that you return to the ED. 2. We are not able to safely determine your condition over the phone nor are we able to give sound medical advice over the phone. For these safety reasons, if you call for medical advice we will ask you to come to the ED for further evaluation. 3. If you have any questions regarding these discharge instructions please call the ED at . SAFETY INFORMATION: In the interest of safety, wellness, and injury prevention; we encourage you to wear your seat belt, if you smoke; quite smoking, and we encourage family to use a protective helmet for bicycling and other sporting events that present an increased risk for head injury. IF YOUR SYMPTOMS WORSEN OR NEW SYMPTOMS DEVELOP, OR YOU HAVE CONCERNS ABOUT YOUR CONDITION; OR IF YOUR CONDITION WORSENS WHILE YOU ARE WAITING FOR YOUR FOLLOW UP APPOINTMENT; EITHER CONTACT YOUR PRIMARY CARE DOCTOR, THE PHYSICIAN WHOSE NAME AND NUMBER YOU WERE GIVEN, OR RETURN TO THE ED IMMEDIATELY. BEKA LUNA Jun 13, 2021 15:04
[2021-06-13 16:07] VITALS: BP 140/82
== END 2021-06-13 17:00 | disposition home or self-care (01) ==
LOC: ER 12:16
DX: K52.9 Noninfective gastroenteritis and colitis, unspecified (principal); K57.30 Diverticulosis of large intestine without perforation or abscess without bleeding; E78.00 Pure hypercholesterolemia, unspecified; I10 Essential (primary) hypertension; G89.29 Other chronic pain; Z90.89 Acquired absence of other organs; Z90.49 Acquired absence of other specified parts of digestive tract; Z88.1 Allergy status to other antibiotic agents; Z88.2 Allergy status to sulfonamides; Z88.6 Allergy status to analgesic agent; Z88.5 Allergy status to narcotic agent
CPT/HCPCS: 80053; 82274; 83605; 83690; 83735; 85025; 87205; 87493; 96361; 96374; 96376; 99285; J2270; J7120